=== PATIENT | male | born 1945 | race Caucasian/White ===

== ENCOUNTER 2016-02-11 08:34 | Emergency (ER) | payer MEDICARE ==
[~2016-02-11 08:34] MED LIST: ACET50TAOT PO; AFRI0.056; ALBU17IN INH; AMIO20TA PO; BREO1INH INH; CALC600T57 PO; CETI10TA PO; COUM1TAB17 PO; COUM2.5T11 PO; LIPI10TA PO; LOSA100T36 PO; MAGN400T5 PO; NITR4TASL SL; OMEP20CA3 PO; SPIR50TA2 PO; TORS5TAB2 PO; VITMTA PO
[2016-02-11] MEDS ORDERED: MORPHINE 4 MG/ML 1ML SYRINGE As Ordered ONE (09:05)
[2016-02-11] MEDS ORDERED: ONDANSETRON 4MG/2ML VIAL (J2405) As Ordered ONE (09:05)
[2016-02-11] MEDS ORDERED: ASPIRIN 81 MG CHEW TABLET As Ordered ONE (09:05)
[2016-02-11 09:17] LABS: BASO % 0.6 % (0.0-1.0); EOS # 0.2 K/mm3 (0.0-0.50); EOS % 2.3 % (0.0-3.0); LARGE UNSTAINED CELL # 0.2 K/mm3 (0.0-0.4); LARGE UNSTAINED CELL % 3.1 % (0.0-4.0); LYMPH % 29.4 % (24.0-44.0); MEAN CORPUSCULAR HEMOGLOBIN 31.9 pg (27.0-33.0); MEAN CORPUSCULAR HGB CONC 33.9 g/dl (32.0-36.5); MONO # 0.4 K/mm3 (0.0-0.8); MONO % 6.2 % (0.0-5.0); NEUTROPHILS # 4.1 K/mm3 (1.8-7.7); NEUTROPHILS % 58.5 % (36.0-66.0); PLATELET COUNT, AUTOMATED 217 k/mm3 (150-450); RED CELL DISTRIBUTION WIDTH 11.9 % (11.5-14.5); WHITE BLOOD COUNT 6.9 K/mm3 (4.0-10.0)
[2016-02-11 09:22] LABS: INR 1.14
[2016-02-11 10:04] LABS: ANION GAP 10 MEQ/L (8-16); BLOOD UREA NITROGEN 13 MG/DL (7-18); CALCIUM LEVEL 8.6 MG/DL (8.8-10.2); CARBON DIOXIDE LEVEL 30 MEQ/L (21-32); CHLORIDE LEVEL 103 MEQ/L (98-107); CREATININE FOR GFR 1.16 MG/DL (0.70-1.30); GLOMERULAR FILTRATION RATE > 60.0 (>49); GLUCOSE, FASTING 136 MG/DL (80-110); MAGNESIUM LEVEL 2.2 MG/DL (1.8-2.4); POTASSIUM SERUM 4.1 MEQ/L (3.5-5.1); SODIUM LEVEL 143 MEQ/L (136-145)
[2016-02-11] MEDS ORDERED: ACETAMINOPHEN TAB 650MG DOSE (2X325MG) As Ordered ONE (12:54)
--- NOTE | 2016-02-11 14:37 | REP ---
CT Head without contrast HISTORY: Headache COMPARISON: 05/29/2015 There is no intraparenchymal hemorrhage, acute infarct, mass or midline shift. The ventricular system is normal in appearance. The cortical sulci are dilated consistent with minimal volume loss. There is no extra cerebral collection. There is no fracture. The visualized sinuses are clear. IMPRESSION: Minimal volume loss. Signed by Josue Samson MD 02/11/2016 09:20 A
--- NOTE | 2016-02-11 16:09 | EDDOCDS ---
Nurse's Notes [facility] Name: Rocky Lazo Age: 70 yrs Sex: Male : 1945 Arrival Date: 02/11/2016 Time: 08:34 Bed OBSERVATION Private MD: Jalil Griffith H. Diagnosis: Headache-associated with sinus symptoms Presentation: 02/10 08:40 Presenting complaint: Patient states: woke up this am with chest pressure / headache. bcj denies SOB resp distress. states felt heart racing this am. denies sweating. denies nausea vomiting. has generalized headache. This patient has no additional risk factors. Adult Sepsis Screening: The patient does not have new or worsening altered mentation. Patient's respiratory rate is less than 22. Systolic blood pressure is greater than 100. Patient has a qSOFA score of 0- Negative Sepsis Screen. Suicide/Homicide risk assessment- the patient denies having any suicidal and/or homicidal ideations and does not present with any other emotional, behavioral or mental health complaints. Status: Patient is not a special services coordinator or dependent. Transition of care: patient was not received from another setting of care. 08:40 Method Of Arrival: Walkin/Carried/Asstd [facility] 08:40 Acuity: JACINTO Level 3 [facility] 08:54 Acuity level changed due to complexity of care. [facility] 08:54 Acuity: JACINTO Level 2 [facility] Triage Assessment: 08:47 Headache History: This patient does not have a history of previous headaches. General: bcj Appears in no apparent distress, comfortable. Pain: Location: face and chest Pain currently is 9 out of 10 on a pain scale. Pain began 1 day ago Also complains of no other associated symptoms. Neurological: Level of Consciousness is awake, alert. Historical: - Allergies: PCN; - Home Meds: 1. aspirin 81 mg Oral chew 1 tab once daily 2. breo 100/25mcg 1 puff daily 3. Calcium + Vitamin D 600 mg calcium- 200 unit Oral tab twice a day 4. Lipitor 10 mg Oral tab 1 tab once daily 5. losartan 100 mg oral tab 1 tab once daily 6. magnesium oxide 400 mg Oral tab 800 mg twice a day 7. multivitamin Oral tab 1 tab daily 8. Nitrostat 0.4 mg SL subl 1 tab every 5 minutes as needed 9. omeprazole 20 mg Oral cpDR 1 cap 2 times per day 10. oxymetazoline 0.05 % nasal spry 1 sprays as needed 11. torsemide 5 mg oral tab 1 tab once daily 12. Zyrtec 10 mg Oral tab 1 tab once daily 13. Ventolin HFA 90 mcg/actuation Nebulizer HFAA 2 puffs every 4 hours as needed 14. tylenol ES 500 mg as needed as needed 15. spironolactone 50 mg Oral tab 1 tab once daily - PMHx: Atrial Fib; CHF; COPD; GERD; Hypercholesterolemia; Hypertension; - PSHx: cardiac cath; right testicle; right shoulder; Cardiac Ablation; - Social history: Smoking status: Patient states former smoker of tobacco. No barriers to communication noted, The patient speaks fluent Botswanan, Speaks appropriately for age. - Family history: Not pertinent. - : The pt / caregiver states he / she is not on anticoagulants. Home medication list is obtained from the patient. - Exposure Risk Screening:: None identified. Screenin:12 Screening information is obtained from the patient. Fall risk: No risks identified. jc4 Assistance ADL's: requires no assistance with activities of daily living. Abuse/DV Screen: The patient / caregiver reports he/she is: not in a situation that causes fear, pain or injury. Nutritional screening: No deficits noted. Advance Directives: Currently, there is no health care proxy. home support is adequate. Assessment: 09:14 General: Appears in no apparent distress, Behavior is cooperative, pleasant. Pain: Pain jc4 currently is 8 out of 10 on a pain scale. Neurological: Level of Consciousness is awake, alert, Oriented to person, place, time, Denies dizziness while lying on stretcher. Neurological: Reports headache. EENT: Reports nasal congestion. Cardiovascular: Rhythm is sinus rhythm with unifocal PVCs. Respiratory: Airway is patent Respiratory effort is even, unlabored, Respiratory pattern is regular, symmetrical, Breath sounds are clear bilaterally. GI: Reports epigastric pain. Derm: Skin is pink, warm & dry. 10:12 General: Pt resting on stretcher. States "the pain comes and goes, and I get a little jc4 compression in my chest now and again". Currently states that pain is a "2/10" at this time. Declines need for additional analgesic at this time. 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 Saline lock in place. 11:44 General: Pt resting on stretcher. States, "I feel okay now". Color pink, skin warm and jc4 dry. Denies any pain currently. Respirations easy and full. Saline lock in place. Aware scheduled for repeat blood work. 12:51 General: Pt resting on stretcher. No distress noted at this time. Color pink, skin warm jc4 and dry. Respirations easy and full. States, "I have a little bit of a headache that comes and goes". Dr. Loera made aware. 13:30 Reassessment: Patient appears in no apparent distress at this time. jc4 14:57 General: Pt resting on stretcher. States that headache persists, but "I don't want jc4 anything, I'll suffer with it". Denies any shortness of breath or chest pain. 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 Saline lock in place, site clear. Aware lab results pending. 16:05 General: Appears in no apparent distress, Behavior is cooperative, pleasant. Pain: jc4 Denies pain. Neurological: Level of Consciousness is awake, alert, Oriented to person, place, time. Cardiovascular: Chest pain is denied. Respiratory: Airway is patent Respiratory effort is even, unlabored, Respiratory pattern is regular, symmetrical. Derm: Skin is pink, warm & dry. Vital Signs: 08:41 BP 171 / 94; Pulse 80; Resp 18; Temp 98.4(O); Pulse Ox 99% on R/A; Weight 63.5 kg (R); ct3 Height 5 ft. 7 in. (170.18 cm) (R); 08:57 BP 171 / 92 (auto/); jc4 08:59 Pulse 72 MON; Pulse Ox 97% ; jc4 09:00 BP 158 / 76 (auto/); jc4 09:00 Pulse 71 MON; Pulse Ox 97% ; jc4 09:15 BP 157 / 73 (auto/); jc4 09:15 Pulse 67 MON; Pulse Ox 97% ; jc4 09:30 BP 148 / 69 (auto/); jc4 09:30 Pulse 67 MON; Pulse Ox 93% ; jc4 09:45 BP 155 / 81 (auto/); jc4 09:45 Pulse 69 MON; Pulse Ox 93% ; jc4 10:00 BP 142 / 79 (auto/); jc4 10:00 Pulse 70 MON; Pulse Ox 93% ; jc4 10:12 BP 142 / 79; Pulse 78; Resp 20; Pulse Ox 93% on R/A; Pain 2/10; jc4 10:15 BP 145 / 90 (auto/); jc4 10:15 Pulse 70 MON; Pulse Ox 94% ; jc4 10:30 BP 148 / 80 (auto/); jc4 10:30 Pulse 74 MON; Pulse Ox 92% ; jc4 10:44 Pulse 75 MON; Pulse Ox 92% ; jc4 10:45 BP 146 / 90 (auto/); jc4 11:12 Pulse 72 MON; Pulse Ox 93% ; jc4 11:15 BP 165 / 89 (auto/); jc4 11:30 BP 155 / 83 (auto/); jc4 11:30 Pulse 75 MON; Pulse Ox 93% ; jc4 12:51 BP 122 / 76 (auto/); jc4 12:52 Pulse 75 MON; Pulse Ox 94% ; jc4 15:03 Pulse 70 MON; Pulse Ox 94% ; jc4 15:04 BP 138 / 81 (auto/); jc4 15:14 Pulse 68 MON; Pulse Ox 93% ; jc4 15:15 BP 152 / 70 (auto/); jc4 15:30 BP 124 / 80 (auto/); jc4 15:32 Pulse 75 MON; Pulse Ox 94% ; jc4 15:45 BP 159 / 89 (auto/); jc4 15:46 Pulse 77 MON; Pulse Ox 94% ; jc4 16:06 BP 147 / 95; Pulse 74; Resp 20; Temp 98.1(O); Pulse Ox 95% on R/A; Pain 0/10; jc4 08:41 Body Mass Index 21.93 (63.50 kg, 170.18 cm) ct3 Vitals: 08:47 Log In Time: February 11, 2016 at 08:34. [facility] ED Course: 08:36 Patient visited by Rehan Artis Reg. pm4 08:36 Patient moved to Waiting pm4 08:37 Jalil Griffith is Private Physician. pm4 08:44 Triage Initiated [facility] 08:46 Patient moved to Pre RCE cmb 08:48 Patient visited by Wilton Parr, KATIE. [facility] 08:51 Marion Martinez RN is Primary Nurse. ar2 08:51 Patient moved to 2 ar2 08:52 Cee Loera MD is Attending Physician. sd1 08:52 Patient visited by Cee Loera MD. sd1 08:54 Patient visited by Wilton Parr RN. bcj 08:57 EKG done. (by ED staff). Reviewed by Cee Loera MD. ct3 09:03 Basic Metabolic Profile Sent. jc4 09:03 CBC with Diff Sent. jc4 09:03 Cardiac Injury Profile Sent. jc4 09:03 Prothrombin Time Profile\\E\\INR Sent. jc4 09:03 Troponin Sent. jc4 09:03 Inserted saline lock: 20 gauge in right antecubital area The patient tolerated the jc4 procedure well. 09:06 Patient visited by Nakia Maya PCA. ct3 09:06 Patient has correct armband on for positive identification. Placed in gown. Bed in low ct3 position. Call light in reach. Side rails up X2. 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 Pulse ox on. NIBP on. 09:07 The patient / caregiver is instructed regarding the plan of care and ED course. jc4 09:56 Patient visited by Nakia Maya PCA. ct3 10:03 [facility] Payment Agreement was scanned into [employer] and attached to record. mm15 10:15 Patient visited by Marion Martinez RN. jc4 11:11 Patient moved to OBSERVATION sd1 14:57 CARDIAC MARKER PANEL Sent. jc4 15:03 Patient visited by Carolann Gonzalez. dem1 15:03 EKG done. (by ED staff). Reviewed by Cee Loera MD. dem1 15:07 CT Head Without Contrast Returned. EDMS 15:40 Jalil Griffith is Referral Physician. sd1 16:08 Discontinued lock intact, bleeding controlled, pressure dressing applied, No jc4 redness/swelling at site. No procedures done that require assistance. Administered Medications: 09:12 Drug: Ondansetron 4 mg [ondansetron HCl 2 mg/mL intravenous solution (2 mL)] Route: jc4 IVP; Site: right antecubital; 09:14 Drug: morphine 4 mg [morphine 4 mg/mL intravenous cartridge (1 mL)] Route: IVP; Site: jc4 right antecubital; 10:12 Follow up: BP 142 / 79; Pulse 78 bpm; Resp 20 bpm; Pulse Ox 93% RA; Pain 03/20 Adult [facility] 09:20 Drug: Aspirin 81 mg [aspirin 81 mg chewable tablet (1 tabs)] Route: PO; [facility] 12:55 Drug: Acetaminophen 650 mg [acetaminophen 325 mg tablet (2 tabs)] Route: PO; 4 Order Results: Lab Order: Basic Metabolic Profile; SPEC'M 02/11/16 09:01 Test: GLUCOSE, FASTING; Value: 136; Range: 80-110; Abnormal: Above high normal; Units: MG/DL; Status: F Test: BLOOD UREA NITROGEN; Value: 13; Range: 7-18; Units: MG/DL; Status: F Test: CREATININE FOR GFR; Value: 1.16; Range: 0.70-1.30; Units: MG/DL; Status: F Test: GLOMERULAR FILTRATION RATE; Value: > 60.0; Range: >49; Status: F Test: SODIUM LEVEL; Value: 143; Range: 136-145; Units: MEQ/L; Status: F Test: POTASSIUM SERUM; Value: 4.1; Range: 3.5-5.1; Units: MEQ/L; Status: F Test: CHLORIDE LEVEL; Value: 103; Range: 98-107; Units: MEQ/L; Status: F Test: CARBON DIOXIDE LEVEL; Value: 30; Range: 21-32; Units: MEQ/L; Status: F Test: ANION GAP; Value: 10; Range: 8-16; Units: MEQ/L; Status: F Test: CALCIUM LEVEL; Value: 8.6; Range: 8.8-10.2; Abnormal: Below low normal; Units: MG/DL; Status: F Test Note: ; Units are mL/min/1.73 m2 Chronic Kidney Disease Staging per NKF: Stage I & II GFR >=60 Normal to Mildly Decreased Stage III GFR 30-59 Moderately Decreased Stage IV GFR 15-29 Severely Decreased Stage V GFR <15 Very Little GFR Left ESRD GFR <15 on LCAC RADAR OPERATOR/NAVIGATOR Lab Order: CBC with Diff; SPEC'M 02/11/16 09:01 Test: WHITE BLOOD COUNT; Value: 6.9; Range: 4.0-10.0; Units: K/mm3; Status: F Test: RED BLOOD COUNT; Value: 4.89; Range: 4.30-6.10; Units: M/mm3; Status: F Test: HEMOGLOBIN; Value: 15.6; Range: 14.0-18.0; Units: g/dl; Status: F Test: HEMATOCRIT; Value: 46.0; Range: 42.0-52.0; Units: %; Status: F Test: MEAN CORPUSCULAR VOLUME; Value: 94.0; Range: 80.0-96.0; Units: fl; Status: F Test: MEAN CORPUSCULAR HEMOGLOBIN; Value: 31.9; Range: 27.0-33.0; Units: pg; Status: F Test: MEAN CORPUSCULAR HGB CONC; Value: 33.9; Range: 32.0-36.5; Units: g/dl; Status: F Test: RED CELL DISTRIBUTION WIDTH; Value: 11.9; Range: 11.5-14.5; Units: %; Status: F Test: PLATELET COUNT, AUTOMATED; Value: 217; Range: 150-450; Units: k/mm3; Status: F Test: NEUTROPHILS %; Value: 58.5; Range: 36.0-66.0; Units: %; Status: F Test: LYMPH %; Value: 29.4; Range: 24.0-44.0; Units: %; Status: F Test: MONO %; Value: 6.2; Range: 0.0-5.0; Abnormal: Above high normal; Units: %; Status: F Test: EOS %; Value: 2.3; Range: 0.0-3.0; Units: %; Status: F Test: BASO %; Value: 0.6; Range: 0.0-1.0; Units: %; Status: F Test: LARGE UNSTAINED CELL %; Value: 3.1; Range: 0.0-4.0; Units: %; Status: F Test: NEUTROPHILS #; Value: 4.1; Range: 1.8-7.7; Units: K/mm3; Status: F Test: LYMPH #; Value: 2.0; Range: 1.5-4.5; Units: K/mm3; Status: F Test: MONO #; Value: 0.4; Range: 0.0-0.8; Units: K/mm3; Status: F Test: EOS #; Value: 0.2; Range: 0.0-0.50; Units: K/mm3; Status: F Test: BASO #; Value: 0.0; Range: 0.0-0.2; Units: K/mm3; Status: F Test: LARGE UNSTAINED CELL #; Value: 0.2; Range: 0.0-0.4; Units: K/mm3; Status: F Lab Order: Cardiac Injury Profile; SPEC02/11/16 09:01 Test: CPK CREATINE PHOSPHOKINASE; Value: 86; Range: 39-308; Units: U/L; Status: F Test: CK-MB VALUE MASS; Value: 1.3; Range: 0.0-3.6; Units: NG/ML; Status: F Test: MB/CK RELATIVE INDEX; Value: 1.51; Range: < OR =4; Status: F Test Note: ; DIAGNOSIS CRITERIA MMB ng/ml Relative Index (RI) NON-AMI < or = 5 N/A BERTRAND ZONE > 5 < or = 4 AMI > 5 > 4 Lab Order: Prothrombin Time Profile\\E\\INR; 02/11/16 09:01 Test: PROTHROMBIN TIME; Value: 14.7; Range: 12.3-14.5; Abnormal: Above high normal; Units: SECONDS; Status: F Test: INR; Value: 1.14; Status: F Test Note: ; THERAPUTIC HUMAN INR VALUES INDICATIONS NORMAL RANGES PROPHYLAXIS/TREATMENT OF: VENOUS THROMBOSIS 2.0-3.0 PULMONARY EMBOLISM 2.0-3.0 PREVENTION OF SYSTEMIC EMBOLISM FROM: TISSUE HEART VALVES 2.0-3.0 ACUTE MYOCARDIAL INFARCTION 2.0-3.0 VALVULAR HEART DISEASE 2.0-3.0 ATRIAL FIBRILLATION 2.0-3.0 MECHANICAL VALVES(HIGH RISK) 2.5-3.5 RECURRENT MYOCARDIAL INFARCTION 2.5-3.5 Lab Order: Troponin; 02/11/16 09:01 Test: TROPONIN I; Value: < 0.02; Range: < 0.10; Units: NG/ML; Status: F Test Note: ; Troponin I Reference Interval for [place] LOCI: 99th Percentile= 0.00-0.045 ng/ml Risk Stratification: <= 0.10 ng/ml Decreased Risk for Adverse Clinical Events. 0.10-1.50 ng/ml Increased Risk for Adverse Clinical Events. Evaluation of additional criterion and/or repeat testing in 2-6 hours is suggested to rule out myocardial damage. >= 1.50 ng/ml Indicative of Myocardial Injury. Lab Order: MAGNESIUM LEVEL; SPEC'M 02/11/16 09:01 Test: MAGNESIUM LEVEL; Value: 2.2; Range: 1.8-2.4; Units: MG/DL; Status: F Lab Order: CARDIAC MARKER PANEL; SPEC'M 02/11/16 14:55 Test: CPK CREATINE PHOSPHOKINASE; Value: 74; Range: 39-308; Units: U/L; Status: F Test: CK-MB VALUE MASS; Value: 1.0; Range: 0.0-3.6; Units: NG/ML; Status: F Test: MB/CK RELATIVE INDEX; Value: 1.35; Range: < OR =4; Status: F Test: TROPONIN I; Value: < 0.02; Range: < 0.10; Units: NG/ML; Status: F Test Note: ; DIAGNOSIS CRITERIA MMB ng/ml Relative Index (RI) NON-AMI < or = 5 N/A BERTRAND ZONE > 5 < or = 4 AMI > 5 > 4 Radiology Order: CT Head Without Contrast Test: CT Head Without Contrast REASON FOR EXAMINATION: HEADACHE WEAKNESS; CT Head without contrast; ; HISTORY: Headache; ; COMPARISON: 05/29/2015; ; There is no intraparenchymal hemorrhage, acute infarct, mass or midline shift.; The ventricular system is normal in appearance. The cortical sulci are dilated; consistent with minimal volume loss. There is no extra cerebral collection.; There is no fracture. The visualized sinuses are clear.; ; IMPRESSION: Minimal volume loss.; ; ; ; ; Signed by; Josue Samson MD 02/11/2016 09:20 A; Outcome: 15:42 Discharge ordered by Provider. sd1 16:08 Discharge Assessment: Patient awake, alert and oriented x 3. No cognitive and/or jc4 functional deficits noted. Patient verbalized understanding of disposition instructions. patient administered narcotics - no. The following High Risk Discharge criteria are identified: None. Discharged to home ambulatory. Condition: stable. Discharge instructions given to patient, Instructed on discharge instructions, follow up and referral plans. medication usage, Demonstrated understanding of instructions, medications, Pt was receptive of discharge instructions/ teaching. Prescriptions given X 3. CT Study completed. Property :Personal belongings accompany Pt. 16:08 Patient left the ED. jc4 Signatures: Dispatcher [employer] EDMS Cee Loera MD MD sd1 Wilton Parr, RN RN Uriel Morales, PASteffanieC PA-C ar2 Marion Martinez RN RN jc4 Nakia Maya, PATTERNMAKER HELPER PATTERNMAKER HELPER ct3 Carolann Gonzalez1 Alyx Davis cmb Mary Aparicio mm15 Rehan Artis, Reg Reg pm4 Corrections: (The following items were deleted from the chart) 09:08 09:02 MAGNESIUM LEVEL+LAB sent. 4 EDVT MTDD
--- NOTE | 2016-02-11 16:09 | EDDOCDS ---
Physician Documentation [facility] Name: Rocky Lazo Age: 70 yrs Sex: Male : 1945 Arrival Date: 02/11/2016 Time: 08:34 Bed OBSERVATION Private MD: Jalil Griffith H. Disposition: 02/11/16 15:42 Discharged to Home/Self Care. Impression: Headache - associated with sinus symptoms . - Condition is Stable. - Discharge Instructions: Sinus Headache, Sinus Headache, Aztv-[id number]. - Prescriptions for Afrin (oxymetazoline) 0.05 % Nasal Aerosol, [place] - spray 2 spray by INTRANASAL route 2 times per day; 1 Container. Fluticasone 50 mcg/actuation Nasal [place], Suspension - inhale 1 spray by INTRANASAL route 2 times per day; 1 bottle. [place] 5- 325 mg Oral Tablet - take 1 tablet by ORAL route every 6 hours As needed MDD: 4 tabs; 6 tablet. - Medication Reconciliation, Local Pharmacy Hours form. - Follow up: Jalil Griffith; When: Tomorrow; Reason: Recheck today's complaints. Follow up: Emergency Department; When: Tomorrow; Reason: Recheck today's complaints. - Problem is new. - Symptoms are resolved. Historical: - Allergies: PCN; - Home Meds: 1. aspirin 81 mg Oral chew 1 tab once daily 2. breo 100/25mcg 1 puff daily 3. Calcium + Vitamin D 600 mg calcium- 200 unit Oral tab twice a day 4. Lipitor 10 mg Oral tab 1 tab once daily 5. losartan 100 mg oral tab 1 tab once daily 6. magnesium oxide 400 mg Oral tab 800 mg twice a day 7. multivitamin Oral tab 1 tab daily 8. Nitrostat 0.4 mg SL subl 1 tab every 5 minutes as needed 9. omeprazole 20 mg Oral cpDR 1 cap 2 times per day 10. oxymetazoline 0.05 % nasal spry 1 sprays as needed 11. torsemide 5 mg oral tab 1 tab once daily 12. Zyrtec 10 mg Oral tab 1 tab once daily 13. Ventolin HFA 90 mcg/actuation Nebulizer HFAA 2 puffs every 4 hours as needed 14. tylenol ES 500 mg as needed as needed 15. spironolactone 50 mg Oral tab 1 tab once daily - PMHx: Atrial Fib; CHF; COPD; GERD; Hypercholesterolemia; Hypertension; - PSHx: cardiac cath; right testicle; right shoulder; Cardiac Ablation; - Social history: Smoking status: Patient states former smoker of tobacco. No barriers to communication noted, The patient speaks fluent Kazakh, Speaks appropriately for age. - Family history: Not pertinent. - : The pt / caregiver states he / she is not on anticoagulants. Home medication list is obtained from the patient. - Exposure Risk Screening:: None identified. Vital Signs: 02/10 08:41 BP 171 / 94; Pulse 80; Resp 18; Temp 98.4(O); Pulse Ox 99% on R/A; Weight 63.5 kg / ct3 139.99 lbs (R); Height 5 ft. 7 in. (170.18 cm) (R); 08:57 BP 171 / 92 (auto/); jc4 08:59 Pulse 72 MON; Pulse Ox 97% ; jc4 09:00 BP 158 / 76 (auto/); jc4 09:00 Pulse 71 MON; Pulse Ox 97% ; jc4 09:15 BP 157 / 73 (auto/); jc4 09:15 Pulse 67 MON; Pulse Ox 97% ; jc4 09:30 BP 148 / 69 (auto/); jc4 09:30 Pulse 67 MON; Pulse Ox 93% ; jc4 09:45 BP 155 / 81 (auto/); jc4 09:45 Pulse 69 MON; Pulse Ox 93% ; jc4 10:00 BP 142 / 79 (auto/); jc4 10:00 Pulse 70 MON; Pulse Ox 93% ; jc4 10:12 BP 142 / 79; Pulse 78; Resp 20; Pulse Ox 93% on R/A; Pain 2/10; jc4 10:15 BP 145 / 90 (auto/); jc4 10:15 Pulse 70 MON; Pulse Ox 94% ; jc4 10:30 BP 148 / 80 (auto/); jc4 10:30 Pulse 74 MON; Pulse Ox 92% ; jc4 10:44 Pulse 75 MON; Pulse Ox 92% ; jc4 10:45 BP 146 / 90 (auto/); jc4 11:12 Pulse 72 MON; Pulse Ox 93% ; jc4 11:15 BP 165 / 89 (auto/); jc4 11:30 BP 155 / 83 (auto/); jc4 11:30 Pulse 75 MON; Pulse Ox 93% ; jc4 12:51 BP 122 / 76 (auto/); jc4 12:52 Pulse 75 MON; Pulse Ox 94% ; jc4 15:03 Pulse 70 MON; Pulse Ox 94% ; jc4 15:04 BP 138 / 81 (auto/); jc4 15:14 Pulse 68 MON; Pulse Ox 93% ; jc4 15:15 BP 152 / 70 (auto/); jc4 15:30 BP 124 / 80 (auto/); jc4 15:32 Pulse 75 MON; Pulse Ox 94% ; jc4 15:45 BP 159 / 89 (auto/); jc4 15:46 Pulse 77 MON; Pulse Ox 94% ; jc4 16:06 BP 147 / 95; Pulse 74; Resp 20; Temp 98.1(O); Pulse Ox 95% on R/A; Pain 0/10; jc4 08:41 Body Mass Index 21.93 (63.50 kg, 170.18 cm) ct3 MDM: 08:51 Care Center Manager/Pulse Ox/q 30 min VS ordered. sd1 08:51 IV Saline Lock ordered. sd1 08:51 Rhythm Strip to chart ordered. sd1 08:51 Undress patient appropriately for examination ordered. sd1 08:52 Basic Metabolic Profile Ordered. EDMS 08:52 CBC with Diff Ordered. EDMS 08:52 Cardiac Injury Profile Ordered. EDMS 08:52 Prothrombin Time Profile\E\INR Ordered. EDMS 08:52 Troponin Ordered. EDMS 08:52 portable chest Ordered. EDMS 08:53 ECG WITH READING ER PHYS+CARDIAG ordered. EDMS 08:58 Aspirin Chewable Tablet 81 mg PO once ordered. sd1 08:59 CT Head Without Contrast Ordered. EDMS 08:59 morphine 4 mg IVP every 15 minutes; Document pain score/vitals after each dose (Hold if sd1 SBP < 90mmHg) x2 ordered. 08:59 Ondansetron 4 mg IVP once ordered. sd1 09:09 MAGNESIUM LEVEL Ordered. EDMS 09:45 Financial registration complete. mm15 10:03 [facility] Payment Agreement was scanned into [employer] and attached to record. mm15 10:13 Basic Metabolic Profile Reviewed. sd1 10:13 CBC with Diff Reviewed. sd1 10:13 Prothrombin Time Profile\E\INR Reviewed. sd1 10:13 Cardiac Injury Profile Reviewed. sd1 10:13 Troponin Reviewed. sd1 10:13 MAGNESIUM LEVEL Reviewed. sd1 11:06 Redraw CIP &Troponin (put time in details section) ordered. sd1 11:06 Repeat EKG (put time details section) ordered. sd1 11:12 Redraw CIP &Troponin (put time in details section) complete. lbd 11:12 Repeat EKG (put time details section) complete. lbd 11:15 ECG WITH READING ER PHYS ordered. EDMS 11:16 CARDIAC MARKER PANEL Ordered. EDMS 12:53 Acetaminophen Tablet 650 mg PO once ordered. jc4 15:30 CT Head Without Contrast Reviewed. sd1 15:31 CARDIAC MARKER PANEL Reviewed. sd1 Administered Medications: 09:12 Drug: Ondansetron 4 mg [ondansetron HCl 2 mg/mL intravenous solution (2 mL)] Route: jc4 IVP; Site: right antecubital; 09:14 Drug: morphine 4 mg [morphine 4 mg/mL intravenous cartridge (1 mL)] Route: IVP; Site: [facility] right antecubital; 10:12 Follow up: BP 142 / 79; Pulse 78 bpm; Resp 20 bpm; Pulse Ox 93% RA; Pain 03/20 Adult jc4 09:20 Drug: Aspirin 81 mg [aspirin 81 mg chewable tablet (1 tabs)] Route: PO; jc4 12:55 Drug: Acetaminophen 650 mg [acetaminophen 325 mg tablet (2 tabs)] Route: PO; jc4 Signatures: Dispatcher [employer] EDCee Garrison MD MD sd1 Ann-Marie Reyez, Medical Record Assistant Unit [facility] Wilton Parr RN RN bcj Castle, Jennifer, RN RN jc4 Mary Aparicio mm15 The chart was reviewed and I authenticate all verbal orders and agree with the evaluation and treatment provided.Corrections: (The following items were deleted from the chart) 09:08 08:59 MAGNESIUM LEVEL+LAB ordered. EDNV EDMS Attachments: 10:03 [facility] Payment Agreement mm15 MTDD
--- NOTE | 2016-02-12 12:19 | REP ---
AP portable upright chest radiograph 02/11/2016 Indication: Chest pain Comparison: Portable chest 08/01/2015 Study is somewhat limited by portable technique and underpenetration Cardiomediastinal silhouette is normal. Lungs are clear bilaterally. Bones and soft tissues are within normal limits. Impression: negative AP portable chest radiograph Signed by Kiara Chandler MD 02/12/2016 12:12 P
--- NOTE | 2016-02-12 19:32 | ECGEPIP ---
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
--- NOTE | 2016-02-12 19:42 | ECGEPIP ---
Stationary ECG Study [facility] - ED Test Date: 2016-02-11 Pat Name: CAREY AKERS Department: Room: - Gender: M Protection Agent: violet[place] : 1945 Requested By: Cee Loera Order Number: [id number] Reading MD: Cee Loera Measurements Intervals [place] Rate: 65 P: 93 RI: 150 QRS: 42 QRSD: 108 T: 37 QT: 384 QTc: 402 Interpretive Statements SINUS RHYTHM WITH FREQUENT VENTRICULAR PREMATURE COMPLEXES ABNORMAL RHYTHM ECG DECREASED RATE 02/11/16 Electronically Signed On 02-12-2016 19:42:04 EST by Cee Loera
--- NOTE | 2016-02-13 17:10 | EDDOCDS ---
Physician Documentation [facility] Name: Rocky Lazo Age: 70 yrs Sex: Male : 1945 Arrival Date: 02/11/2016 Time: 08:34 Bed OBSERVATION Private MD: Jalil Griffith H. Disposition: 02/11/16 15:42 Discharged to Home/Self Care. Impression: Headache - associated with sinus symptoms . - Condition is Stable. - Discharge Instructions: Sinus Headache, Sinus Headache, [id number]. - Prescriptions for Afrin (oxymetazoline) 0.05 % Nasal Aerosol, [place] - spray 2 spray by INTRANASAL route 2 times per day; 1 Container. Fluticasone 50 mcg/actuation Nasal [place], Suspension - inhale 1 spray by INTRANASAL route 2 times per day; 1 bottle. [place] 5- 325 mg Oral Tablet - take 1 tablet by ORAL route every 6 hours As needed MDD: 4 tabs; 6 tablet. - Medication Reconciliation, Local Pharmacy Hours form. - Follow up: Jalil Griffith; When: Tomorrow; Reason: Recheck today's complaints. Follow up: Emergency Department; When: Tomorrow; Reason: Recheck today's complaints. - Problem is new. - Symptoms are resolved. Historical: - Allergies: PCN; - Home Meds: 1. aspirin 81 mg Oral chew 1 tab once daily 2. breo 100/25mcg 1 puff daily 3. Calcium + Vitamin D 600 mg calcium- 200 unit Oral tab twice a day 4. Lipitor 10 mg Oral tab 1 tab once daily 5. losartan 100 mg oral tab 1 tab once daily 6. magnesium oxide 400 mg Oral tab 800 mg twice a day 7. multivitamin Oral tab 1 tab daily 8. Nitrostat 0.4 mg SL subl 1 tab every 5 minutes as needed 9. omeprazole 20 mg Oral cpDR 1 cap 2 times per day 10. oxymetazoline 0.05 % nasal spry 1 sprays as needed 11. torsemide 5 mg oral tab 1 tab once daily 12. Zyrtec 10 mg Oral tab 1 tab once daily 13. Ventolin HFA 90 mcg/actuation Nebulizer HFAA 2 puffs every 4 hours as needed 14. tylenol ES 500 mg as needed as needed 15. spironolactone 50 mg Oral tab 1 tab once daily - PMHx: Atrial Fib; CHF; COPD; GERD; Hypercholesterolemia; Hypertension; - PSHx: cardiac cath; right testicle; right shoulder; Cardiac Ablation; - Social history: Smoking status: Patient states former smoker of tobacco. No barriers to communication noted, The patient speaks fluent Lithuanian, Speaks appropriately for age. - Family history: Not pertinent. - : The pt / caregiver states he / she is not on anticoagulants. Home medication list is obtained from the patient. - Exposure Risk Screening:: None identified. Vital Signs: 02/10 08:41 BP 171 / 94; Pulse 80; Resp 18; Temp 98.4(O); Pulse Ox 99% on R/A; Weight 63.5 kg / ct3 139.99 lbs (R); Height 5 ft. 7 in. (170.18 cm) (R); 08:57 BP 171 / 92 (auto/); jc4 08:59 Pulse 72 MON; Pulse Ox 97% ; jc4 09:00 BP 158 / 76 (auto/); jc4 09:00 Pulse 71 MON; Pulse Ox 97% ; jc4 09:15 BP 157 / 73 (auto/); jc4 09:15 Pulse 67 MON; Pulse Ox 97% ; jc4 09:30 BP 148 / 69 (auto/); jc4 09:30 Pulse 67 MON; Pulse Ox 93% ; jc4 09:45 BP 155 / 81 (auto/); jc4 09:45 Pulse 69 MON; Pulse Ox 93% ; jc4 10:00 BP 142 / 79 (auto/); jc4 10:00 Pulse 70 MON; Pulse Ox 93% ; jc4 10:12 BP 142 / 79; Pulse 78; Resp 20; Pulse Ox 93% on R/A; Pain 2/10; jc4 10:15 BP 145 / 90 (auto/); jc4 10:15 Pulse 70 MON; Pulse Ox 94% ; jc4 10:30 BP 148 / 80 (auto/); jc4 10:30 Pulse 74 MON; Pulse Ox 92% ; jc4 10:44 Pulse 75 MON; Pulse Ox 92% ; jc4 10:45 BP 146 / 90 (auto/); jc4 11:12 Pulse 72 MON; Pulse Ox 93% ; jc4 11:15 BP 165 / 89 (auto/); jc4 11:30 BP 155 / 83 (auto/); jc4 11:30 Pulse 75 MON; Pulse Ox 93% ; jc4 12:51 BP 122 / 76 (auto/); jc4 12:52 Pulse 75 MON; Pulse Ox 94% ; jc4 15:03 Pulse 70 MON; Pulse Ox 94% ; jc4 15:04 BP 138 / 81 (auto/); jc4 15:14 Pulse 68 MON; Pulse Ox 93% ; jc4 15:15 BP 152 / 70 (auto/); jc4 15:30 BP 124 / 80 (auto/); jc4 15:32 Pulse 75 MON; Pulse Ox 94% ; jc4 15:45 BP 159 / 89 (auto/); jc4 15:46 Pulse 77 MON; Pulse Ox 94% ; jc4 16:06 BP 147 / 95; Pulse 74; Resp 20; Temp 98.1(O); Pulse Ox 95% on R/A; Pain 0/10; jc4 08:41 Body Mass Index 21.93 (63.50 kg, 170.18 cm) ct3 MDM: 08:51 Media Sales Consultant/Pulse Ox/q 30 min VS ordered. sd1 08:51 IV Saline Lock ordered. sd1 08:51 Rhythm Strip to chart ordered. sd1 08:51 Undress patient appropriately for examination ordered. sd1 08:52 Basic Metabolic Profile Ordered. EDMS 08:52 CBC with Diff Ordered. EDMS 08:52 Cardiac Injury Profile Ordered. EDMS 08:52 Prothrombin Time Profile\E\INR Ordered. EDMS 08:52 Troponin Ordered. EDMS 08:52 portable chest Ordered. EDMS 08:53 ECG WITH READING ER PHYS+CARDIAG ordered. EDMS 08:58 Aspirin Chewable Tablet 81 mg PO once ordered. sd1 08:59 CT Head Without Contrast Ordered. EDMS 08:59 morphine 4 mg IVP every 15 minutes; Document pain score/vitals after each dose (Hold if sd1 SBP < 90mmHg) x2 ordered. 08:59 Ondansetron 4 mg IVP once ordered. sd1 09:09 MAGNESIUM LEVEL Ordered. EDMS 09:45 Financial registration complete. mm15 10:03 [facility] [place] was [place] into [employer] and attached to record. mm15 10:13 Basic Metabolic Profile Reviewed. sd1 10:13 CBC with Diff Reviewed. sd1 10:13 Prothrombin Time Profile\E\INR Reviewed. sd1 10:13 Cardiac Injury Profile Reviewed. sd1 10:13 Troponin Reviewed. sd1 10:13 MAGNESIUM LEVEL Reviewed. sd1 11:06 Redraw CIP &Troponin (put time in details section) ordered. sd1 11:06 Repeat EKG (put time details section) ordered. sd1 11:12 Redraw CIP &Troponin (put time in details section) complete. lbd 11:12 Repeat EKG (put time details section) complete. lbd 11:15 ECG WITH READING ER PHYS ordered. EDMS 11:16 CARDIAC MARKER PANEL Ordered. EDMS 12:53 Acetaminophen Tablet 650 mg PO once ordered. jc4 15:30 CT Head Without Contrast Reviewed. sd1 15:31 CARDIAC MARKER PANEL Reviewed. sd1 02/11 12:02 T-Sheet-- Draft Copy was scanned into [employer] and attached to record. gb 12:03 ECG/EKG was scanned into [employer] and attached to record. gb 12:03 Trend VS was scanned into [employer] and attached to record. gb Administered Medications: 02/10 09:12 Drug: Ondansetron 4 mg [ondansetron HCl 2 mg/mL intravenous solution (2 mL)] Route: jc4 IVP; Site: right antecubital; 09:14 Drug: morphine 4 mg [morphine 4 mg/mL intravenous cartridge (1 mL)] Route: IVP; Site: [facility] right antecubital; 10:12 Follow up: BP 142 / 79; Pulse 78 bpm; Resp 20 bpm; Pulse Ox 93% RA; Pain 03/20 Adult jc4 09:20 Drug: Aspirin 81 mg [aspirin 81 mg chewable tablet (1 tabs)] Route: PO; jc4 12:55 Drug: Acetaminophen 650 mg [acetaminophen 325 mg tablet (2 tabs)] Route: PO; jc4 Signatures: Dispatcher [employer] EDMS Cee Loera MD MD sd1 Ann-Marie Reyez, Door Hanger Unit lbd Wilton Parr, RN RN Prema Pal, [place] Reg Marion Beckwith, RN RN jc4 Mary Aparicio mm15 The chart was reviewed and I authenticate all verbal orders and agree with the evaluation and treatment provided.Corrections: (The following items were deleted from the chart) 09:08 08:59 MAGNESIUM LEVEL+LAB ordered. EDMS EDMS Attachments: 10:03 [facility] Payment Agreement mm15 02/11 12:02 T-Sheet-- Draft Copy gb 12:03 ECG/EKG gb Chart Complete MTDD
--- NOTE | 2016-02-13 17:10 | EDDOCDS ---
Nurse's Notes [facility] Name: Carey Akers Age: 70 yrs Sex: Male : 1945 Arrival Date: 02/11/2016 Time: 08:34 Bed OBSERVATION Private MD: Jalil Griffith H. Diagnosis: Headache-associated with sinus symptoms Presentation: 02/10 08:40 Presenting complaint: Patient states: woke up this am with chest pressure / headache. bcj denies SOB resp distress. states felt heart racing this am. denies sweating. denies nausea vomiting. has generalized headache. This patient has no additional risk factors. Adult Sepsis Screening: The patient does not have new or worsening altered mentation. Patient's respiratory rate is less than 22. Systolic blood pressure is greater than 100. Patient has a qSOFA score of 0- Negative Sepsis Screen. Suicide/Homicide risk assessment- the patient denies having any suicidal and/or homicidal ideations and does not present with any other emotional, behavioral or mental health complaints. 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 Transition of care: patient was not received from another setting of care. 08:40 Method Of Arrival: Walkin/Carried/Asstd [facility] 08:40 Acuity: JACINTO Level 3 [facility] 08:54 Acuity level changed due to complexity of care. [facility] 08:54 Acuity: JACINTO Level 2 [facility] Triage Assessment: 08:47 Headache History: This patient does not have a history of previous headaches. General: bcj Appears in no apparent distress, comfortable. Pain: Location: face and chest Pain currently is 9 out of 10 on a pain scale. Pain began 1 day ago Also complains of no other associated symptoms. Neurological: Level of Consciousness is awake, alert. Historical: - Allergies: PCN; - Home Meds: 1. aspirin 81 mg Oral chew 1 tab once daily 2. breo 100/25mcg 1 puff daily 3. Calcium + Vitamin D 600 mg calcium- 200 unit Oral tab twice a day 4. Lipitor 10 mg Oral tab 1 tab once daily 5. losartan 100 mg oral tab 1 tab once daily 6. magnesium oxide 400 mg Oral tab 800 mg twice a day 7. multivitamin Oral tab 1 tab daily 8. Nitrostat 0.4 mg SL subl 1 tab every 5 minutes as needed 9. omeprazole 20 mg Oral cpDR 1 cap 2 times per day 10. oxymetazoline 0.05 % nasal spry 1 sprays as needed 11. torsemide 5 mg oral tab 1 tab once daily 12. Zyrtec 10 mg Oral tab 1 tab once daily 13. Ventolin HFA 90 mcg/actuation Nebulizer HFAA 2 puffs every 4 hours as needed 14. tylenol ES 500 mg as needed as needed 15. spironolactone 50 mg Oral tab 1 tab once daily - PMHx: Atrial Fib; CHF; COPD; GERD; Hypercholesterolemia; Hypertension; - PSHx: cardiac cath; right testicle; right shoulder; Cardiac Ablation; - Social history: Smoking status: Patient states former smoker of tobacco. No barriers to communication noted, The patient speaks fluent Montenegrin, Speaks appropriately for age. - Family history: Not pertinent. - : The pt / caregiver states he / she is not on anticoagulants. Home medication list is obtained from the patient. - Exposure Risk Screening:: None identified. Screenin:12 Screening information is obtained from the patient. Fall risk: No risks identified. jc4 Assistance ADL's: requires no assistance with activities of daily living. Abuse/DV Screen: The patient / caregiver reports he/she is: not in a situation that causes fear, pain or injury. Nutritional screening: No deficits noted. Advance Directives: Currently, there is no health care proxy. home support is adequate. Assessment: 09:14 General: Appears in no apparent distress, Behavior is cooperative, pleasant. Pain: Pain jc4 currently is 8 out of 10 on a pain scale. Neurological: Level of Consciousness is awake, alert, Oriented to person, place, time, Denies dizziness while lying on stretcher. Neurological: Reports headache. EENT: Reports nasal congestion. Cardiovascular: Rhythm is sinus rhythm with unifocal PVCs. Respiratory: Airway is patent Respiratory effort is even, unlabored, Respiratory pattern is regular, symmetrical, Breath sounds are clear bilaterally. GI: Reports epigastric pain. Derm: Skin is pink, warm & dry. 10:12 General: Pt resting on stretcher. States "the pain comes and goes, and I get a little jc4 compression in my chest now and again". Currently states that pain is a "2/10" at this time. Declines need for additional analgesic at this time. clinical review nurse - sinus rhythm with frequent PVC's. Saline lock in place. 11:44 General: Pt resting on stretcher. States, "I feel okay now". Color pink, skin warm and jc4 dry. Denies any pain currently. Respirations easy and full. Saline lock in place. Aware scheduled for repeat blood work. 12:51 General: Pt resting on stretcher. No distress noted at this time. Color pink, skin warm jc4 and dry. Respirations easy and full. States, "I have a little bit of a headache that comes and goes". Dr. Loera made aware. 13:30 Reassessment: Patient appears in no apparent distress at this time. jc4 14:57 General: Pt resting on stretcher. States that headache persists, but "I don't want jc4 anything, I'll suffer with it". Denies any shortness of breath or chest pain. clinical review nurse - sinus rhythm with frequent unifocal PVC's. Saline lock in place, site clear. Aware lab results pending. 16:05 General: Appears in no apparent distress, Behavior is cooperative, pleasant. Pain: jc4 Denies pain. Neurological: Level of Consciousness is awake, alert, Oriented to person, place, time. Cardiovascular: Chest pain is denied. Respiratory: Airway is patent Respiratory effort is even, unlabored, Respiratory pattern is regular, symmetrical. Derm: Skin is pink, warm & dry. Vital Signs: 08:41 BP 171 / 94; Pulse 80; Resp 18; Temp 98.4(O); Pulse Ox 99% on R/A; Weight 63.5 kg (R); ct3 Height 5 ft. 7 in. (170.18 cm) (R); 08:57 BP 171 / 92 (auto/); jc4 08:59 Pulse 72 MON; Pulse Ox 97% ; jc4 09:00 BP 158 / 76 (auto/); jc4 09:00 Pulse 71 MON; Pulse Ox 97% ; jc4 09:15 BP 157 / 73 (auto/); jc4 09:15 Pulse 67 MON; Pulse Ox 97% ; jc4 09:30 BP 148 / 69 (auto/); jc4 09:30 Pulse 67 MON; Pulse Ox 93% ; jc4 09:45 BP 155 / 81 (auto/); jc4 09:45 Pulse 69 MON; Pulse Ox 93% ; jc4 10:00 BP 142 / 79 (auto/); jc4 10:00 Pulse 70 MON; Pulse Ox 93% ; jc4 10:12 BP 142 / 79; Pulse 78; Resp 20; Pulse Ox 93% on R/A; Pain 2/10; jc4 10:15 BP 145 / 90 (auto/); jc4 10:15 Pulse 70 MON; Pulse Ox 94% ; jc4 10:30 BP 148 / 80 (auto/); jc4 10:30 Pulse 74 MON; Pulse Ox 92% ; jc4 10:44 Pulse 75 MON; Pulse Ox 92% ; jc4 10:45 BP 146 / 90 (auto/); jc4 11:12 Pulse 72 MON; Pulse Ox 93% ; jc4 11:15 BP 165 / 89 (auto/); jc4 11:30 BP 155 / 83 (auto/); jc4 11:30 Pulse 75 MON; Pulse Ox 93% ; jc4 12:51 BP 122 / 76 (auto/); jc4 12:52 Pulse 75 MON; Pulse Ox 94% ; jc4 15:03 Pulse 70 MON; Pulse Ox 94% ; jc4 15:04 BP 138 / 81 (auto/); jc4 15:14 Pulse 68 MON; Pulse Ox 93% ; jc4 15:15 BP 152 / 70 (auto/); jc4 15:30 BP 124 / 80 (auto/); jc4 15:32 Pulse 75 MON; Pulse Ox 94% ; jc4 15:45 BP 159 / 89 (auto/); jc4 15:46 Pulse 77 MON; Pulse Ox 94% ; jc4 16:06 BP 147 / 95; Pulse 74; Resp 20; Temp 98.1(O); Pulse Ox 95% on R/A; Pain 0/10; jc4 08:41 Body Mass Index 21.93 (63.50 kg, 170.18 cm) ct3 Vitals: 08:47 Log In Time: February 11, 2016 at 08:34. [facility] ED Course: 08:36 Patient visited by Rehan Artis Reg. pm4 08:36 Patient moved to Waiting pm4 08:37 Jalil Griffith is Private Physician. pm4 08:44 Triage Initiated [facility] 08:46 Patient moved to Pre RCE cmb 08:48 Patient visited by Wilton Parr, KATIE. [facility] 08:51 Marion Martinez RN is Primary Nurse. ar2 08:51 Patient moved to 2 ar2 08:52 Cee Loera MD is Attending Physician. sd1 08:52 Patient visited by Cee Loera MD. sd1 08:54 Patient visited by Wilton Prar RN. bcj 08:57 EKG done. (by ED staff). Reviewed by Cee Loera MD. ct3 09:03 Basic Metabolic Profile Sent. jc4 09:03 CBC with Diff Sent. jc4 09:03 Cardiac Injury Profile Sent. jc4 09:03 Prothrombin Time Profile\\E\\INR Sent. jc4 09:03 Troponin Sent. jc4 09:03 Inserted saline lock: 20 gauge in right antecubital area The patient tolerated the jc4 procedure well. 09:06 Patient visited by Nakia Maya PCA. ct3 09:06 Patient has correct armband on for positive identification. Placed in gown. Bed in low ct3 position. Call light in reach. Side rails up X2. clinical review nurse on. Pulse ox on. NIBP on. 09:07 The patient / caregiver is instructed regarding the plan of care and ED course. jc4 09:56 Patient visited by Nakia Maya PCA. ct3 10:03 [facility] Payment Agreement was scanned into [employer] and attached to record. mm15 10:15 Patient visited by Marion Martinez RN. jc4 11:11 Patient moved to OBSERVATION sd1 14:57 CARDIAC MARKER PANEL Sent. jc4 15:03 Patient visited by Carolann Gonzalez. dem1 15:03 EKG done. (by ED staff). Reviewed by Cee Loera MD. dem1 15:07 CT Head Without Contrast Returned. EDMS 15:40 Jalil Griffith is Referral Physician. sd1 16:08 Discontinued lock intact, bleeding controlled, pressure dressing applied, No jc4 redness/swelling at site. No procedures done that require assistance. 02/11 12:02 T-Sheet-- Draft Copy was scanned into [employer] and attached to record. gb 12:03 ECG/EKG was scanned into [employer] and attached to record. gb 12:03 Trend VS was scanned into [employer] and attached to record. gb 12:37 portable chest Returned. EDMS 20:04 EKG-ADULT Returned. EDMS 20:05 ECG WITH READING ER PHYS Returned. EDMS Administered Medications: 02/10 09:12 Drug: Ondansetron 4 mg [ondansetron HCl 2 mg/mL intravenous solution (2 mL)] Route: jc4 IVP; Site: right antecubital; 09:14 Drug: morphine 4 mg [morphine 4 mg/mL intravenous cartridge (1 mL)] Route: IVP; Site: [facility] right antecubital; 10:12 Follow up: BP 142 / 79; Pulse 78 bpm; Resp 20 bpm; Pulse Ox 93% RA; Pain 03/20 Adult jc4 09:20 Drug: Aspirin 81 mg [aspirin 81 mg chewable tablet (1 tabs)] Route: PO; jc4 12:55 Drug: Acetaminophen 650 mg [acetaminophen 325 mg tablet (2 tabs)] Route: PO; jc4 Attachments: 12:03 Trend VS gb Order Results: Lab Order: Basic Metabolic Profile; SPEC'M 02/11/16 09:01 Test: GLUCOSE, FASTING; Value: 136; Range: 80-110; Abnormal: Above high normal; Units: MG/DL; Status: F Test: BLOOD UREA NITROGEN; Value: 13; Range: 7-18; Units: MG/DL; Status: F Test: CREATININE FOR GFR; Value: 1.16; Range: 0.70-1.30; Units: MG/DL; Status: F Test: GLOMERULAR FILTRATION RATE; Value: > 60.0; Range: >49; Status: F Test: SODIUM LEVEL; Value: 143; Range: 136-145; Units: MEQ/L; Status: F Test: POTASSIUM SERUM; Value: 4.1; Range: 3.5-5.1; Units: MEQ/L; Status: F Test: CHLORIDE LEVEL; Value: 103; Range: 98-107; Units: MEQ/L; Status: F Test: CARBON DIOXIDE LEVEL; Value: 30; Range: 21-32; Units: MEQ/L; Status: F Test: ANION GAP; Value: 10; Range: 8-16; Units: MEQ/L; Status: F Test: CALCIUM LEVEL; Value: 8.6; Range: 8.8-10.2; Abnormal: Below low normal; Units: MG/DL; Status: F Test Note: ; Units are mL/min/1.73 m2 Chronic Kidney Disease Staging per NKF: Stage I & II GFR >=60 Normal to Mildly Decreased Stage III GFR 30-59 Moderately Decreased Stage IV GFR 15-29 Severely Decreased Stage V GFR <15 Very Little GFR Left ESRD GFR <15 on [employer] INTER[employer] Lab Order: CBC with Diff; CORINNE'Gisselle 02/11/16 09:01 Test: WHITE BLOOD COUNT; Value: 6.9; Range: 4.0-10.0; Units: K/mm3; Status: F Test: RED BLOOD COUNT; Value: 4.89; Range: 4.30-6.10; Units: M/mm3; Status: F Test: HEMOGLOBIN; Value: 15.6; Range: 14.0-18.0; Units: g/dl; Status: F Test: HEMATOCRIT; Value: 46.0; Range: 42.0-52.0; Units: %; Status: F Test: MEAN CORPUSCULAR VOLUME; Value: 94.0; Range: 80.0-96.0; Units: fl; Status: F Test: MEAN CORPUSCULAR HEMOGLOBIN; Value: 31.9; Range: 27.0-33.0; Units: pg; Status: F Test: MEAN CORPUSCULAR HGB CONC; Value: 33.9; Range: 32.0-36.5; Units: g/dl; Status: F Test: RED CELL DISTRIBUTION WIDTH; Value: 11.9; Range: 11.5-14.5; Units: %; Status: F Test: PLATELET COUNT, AUTOMATED; Value: 217; Range: 150-450; Units: k/mm3; Status: F Test: NEUTROPHILS %; Value: 58.5; Range: 36.0-66.0; Units: %; Status: F Test: LYMPH %; Value: 29.4; Range: 24.0-44.0; Units: %; Status: F Test: MONO %; Value: 6.2; Range: 0.0-5.0; Abnormal: Above high normal; Units: %; Status: F Test: EOS %; Value: 2.3; Range: 0.0-3.0; Units: %; Status: F Test: BASO %; Value: 0.6; Range: 0.0-1.0; Units: %; Status: F Test: LARGE UNSTAINED CELL %; Value: 3.1; Range: 0.0-4.0; Units: %; Status: F Test: NEUTROPHILS #; Value: 4.1; Range: 1.8-7.7; Units: K/mm3; Status: F Test: LYMPH #; Value: 2.0; Range: 1.5-4.5; Units: K/mm3; Status: F Test: MONO #; Value: 0.4; Range: 0.0-0.8; Units: K/mm3; Status: F Test: EOS #; Value: 0.2; Range: 0.0-0.50; Units: K/mm3; Status: F Test: BASO #; Value: 0.0; Range: 0.0-0.2; Units: K/mm3; Status: F Test: LARGE UNSTAINED CELL #; Value: 0.2; Range: 0.0-0.4; Units: K/mm3; Status: F Lab Order: Cardiac Injury Profile; SPEC'M 02/11/16 09:01 Test: CPK CREATINE PHOSPHOKINASE; Value: 86; Range: 39-308; Units: U/L; Status: F Test: CK-MB VALUE MASS; Value: 1.3; Range: 0.0-3.6; Units: NG/ML; Status: F Test: MB/CK RELATIVE INDEX; Value: 1.51; Range: < OR =4; Status: F Test Note: ; DIAGNOSIS CRITERIA MMB ng/ml Relative Index (RI) NON-AMI < or = 5 N/A BERTRAND ZONE > 5 < or = 4 AMI > 5 > 4 Lab Order: Prothrombin Time Profile\\E\\INR; SPEC'M 02/11/16 09:01 Test: PROTHROMBIN TIME; Value: 14.7; Range: 12.3-14.5; Abnormal: Above high normal; Units: SECONDS; Status: F Test: INR; Value: 1.14; Status: F Test Note: ; THERAPUTIC HUMAN INR VALUES INDICATIONS NORMAL RANGES PROPHYLAXIS/TREATMENT OF: VENOUS THROMBOSIS 2.0-3.0 PULMONARY EMBOLISM 2.0-3.0 PREVENTION OF SYSTEMIC EMBOLISM FROM: TISSUE HEART VALVES 2.0-3.0 ACUTE MYOCARDIAL INFARCTION 2.0-3.0 VALVULAR HEART DISEASE 2.0-3.0 ATRIAL FIBRILLATION 2.0-3.0 MECHANICAL VALVES(HIGH RISK) 2.5-3.5 RECURRENT MYOCARDIAL INFARCTION 2.5-3.5 Lab Order: Troponin; [facility] 02/11/16 09:01 Test: TROPONIN I; Value: < 0.02; Range: < 0.10; Units: NG/ML; Status: F Test Note: ; Troponin I Reference Interval for [employer] LOCI: 99th Percentile= 0.00-0.045 ng/ml Risk Stratification: <= 0.10 ng/ml Decreased Risk for Adverse Clinical Events. 0.10-1.50 ng/ml Increased Risk for Adverse Clinical Events. Evaluation of additional criterion and/or repeat testing in 2-6 hours is suggested to rule out myocardial damage. >= 1.50 ng/ml Indicative of Myocardial Injury. Lab Order: MAGNESIUM LEVEL; [facility] 02/11/16 09:01 Test: MAGNESIUM LEVEL; Value: 2.2; Range: 1.8-2.4; Units: MG/DL; Status: F Lab Order: CARDIAC MARKER PANEL; [facility] 02/11/16 14:55 Test: CPK CREATINE PHOSPHOKINASE; Value: 74; Range: 39-308; Units: U/L; Status: F Test: CK-MB VALUE MASS; Value: 1.0; Range: 0.0-3.6; Units: NG/ML; Status: F Test: MB/CK RELATIVE INDEX; Value: 1.35; Range: < OR =4; Status: F Test: TROPONIN I; Value: < 0.02; Range: < 0.10; Units: NG/ML; Status: F Test Note: ; DIAGNOSIS CRITERIA MMB ng/ml Relative Index (RI) NON-AMI < or = 5 N/A BERTRAND ZONE > 5 < or = 4 AMI > 5 > 4 Radiology Order: portable chest Test: portable chest REASON FOR EXAMINATION: Chest Pain; AP portable upright chest radiograph 02/11/2016; ; Indication: Chest pain; ; Comparison: Portable chest 08/01/2015; ; Study is somewhat limited by portable technique and underpenetration; ; Cardiomediastinal silhouette is normal. Lungs are clear bilaterally. Bones and; soft tissues are within normal limits.; ; Impression: negative AP portable chest radiograph; ; ; Signed by; Kiara Chandler MD 02/12/2016 12:12 P; Radiology Order: EKG-ADULT Test: EKG-ADULT REASON FOR EXAMINATION: Chest Pain; Stationary ECG Study; [facility] ED; ; Test Date: 2016-02-11; Pat Name: CAREY AKERS Department:; Room: -; Gender: M [employer]: [employer]; : 1945 Requested By: Cee Loera; Order Number: [id number] Reading MD: Cee Loera; Measurements; Intervals [place]; Rate: 72 P: 62; ME: 172 QRS: 48; QRSD: 105 T: 40; QT: 400; QTc: 439; Interpretive Statements; SINUS RHYTHM WITH FREQUENT VENTRICULAR PREMATURE COMPLEXES; ABNORMAL RHYTHM ECG; INCREASED ECTOPY/RATE 08/01/15; Electronically Signed On 02-12-2016 19:32:00 EST by Cee Loera; Radiology Order: CT Head Without Contrast Test: CT Head Without Contrast REASON FOR EXAMINATION: HEADACHE WEAKNESS; CT Head without contrast; ; HISTORY: Headache; ; COMPARISON: 05/29/2015; ; There is no intraparenchymal hemorrhage, acute infarct, mass or midline shift.; The ventricular system is normal in appearance. The cortical sulci are dilated; consistent with minimal volume loss. There is no extra cerebral collection.; There is no fracture. The visualized sinuses are clear.; ; IMPRESSION: Minimal volume loss.; ; ; ; ; Signed by; Josue Samson MD 02/11/2016 09:20 A; Radiology Order: ECG WITH READING ER PHYS Test: ECG WITH READING ER PHYS REASON FOR EXAMINATION: CHEST PAIN (REPEAT EKG \\T\\ 2:30P); Stationary ECG Study; [facility] ED; ; Test Date: 2016-02-11; Pat Name: CAREY AKERS Department:; Room: -; Gender: M [employer]: [employer]; : 1945 Requested By: Cee Loera; Order Number: [id number] Reading MD: Cee Loera; Measurements; Intervals [place]; Rate: 65 P: 93; ME: 150 QRS: 42; QRSD: 108 T: 37; QT: 384; QTc: 402; Interpretive Statements; SINUS RHYTHM WITH FREQUENT VENTRICULAR PREMATURE COMPLEXES; ABNORMAL RHYTHM ECG; DECREASED RATE 02/11/16; Electronically Signed On 02-12-2016 19:42:04 EST by Cee Loera; Outcome: 02/10 15:42 Discharge ordered by Provider. sd1 16:08 Discharge Assessment: Patient awake, alert and oriented x 3. No cognitive and/or jc4 functional deficits noted. Patient verbalized understanding of disposition instructions. patient administered narcotics - no. The following High Risk Discharge criteria are identified: None. Discharged to home ambulatory. Condition: stable. Discharge instructions given to patient, Instructed on discharge instructions, follow up and referral plans. medication usage, Demonstrated understanding of instructions, medications, Pt was receptive of discharge instructions/ teaching. Prescriptions given X 3. CT Study completed. Property :Personal belongings accompany Pt. 16:08 Patient left the ED. [facility] Signatures: Dispatcher [employer] EDMS Cee Loera MD MD sd1 Wilton Parr, RN RN Prema aPl, Reg Reg gb Uriel Baca, PA-Darin PA-Darin ar2 Marion Martinez RN RN jc4 Nakia Maya, STRAIGHTENER AND ALIGNER STRAIGHTENER AND ALIGNER ct3 Carolann Gonzalez1 Alyx Davis cmb Mary Aparicio mm15 Rehan Artis, Reg Reg pm4 Corrections: (The following items were deleted from the chart) 09:08 09:02 MAGNESIUM LEVEL+LAB sent. [facility] EDWY Chart Complete MTDD
--- NOTE | 2016-02-13 17:10 | EDDOCDS ---
Physician Documentation [facility] Name: Rocky Lazo Age: 70 yrs Sex: Male : 1945 Arrival Date: 02/11/2016 Time: 08:34 Bed OBSERVATION Private MD: Jalil Griffith H. Disposition: 02/11/16 15:42 Discharged to Home/Self Care. Impression: Headache - associated with sinus symptoms . - Condition is Stable. - Discharge Instructions: Sinus Headache, Sinus Headache, [id number]. - Prescriptions for Afrin (oxymetazoline) 0.05 % Nasal Aerosol, [place] - spray 2 spray by INTRANASAL route 2 times per day; 1 Container. Fluticasone 50 mcg/actuation Nasal [place], Suspension - inhale 1 spray by INTRANASAL route 2 times per day; 1 bottle. Kirby 5- 325 mg Oral Tablet - take 1 tablet by ORAL route every 6 hours As needed MDD: 4 tabs; 6 tablet. - Medication Reconciliation, Local Pharmacy Hours form. - Follow up: Jalil Griffith; When: Tomorrow; Reason: Recheck today's complaints. Follow up: Emergency Department; When: Tomorrow; Reason: Recheck today's complaints. - Problem is new. - Symptoms are resolved. Historical: - Allergies: PCN; - Home Meds: 1. aspirin 81 mg Oral chew 1 tab once daily 2. breo 100/25mcg 1 puff daily 3. Calcium + Vitamin D 600 mg calcium- 200 unit Oral tab twice a day 4. Lipitor 10 mg Oral tab 1 tab once daily 5. losartan 100 mg oral tab 1 tab once daily 6. magnesium oxide 400 mg Oral tab 800 mg twice a day 7. multivitamin Oral tab 1 tab daily 8. Nitrostat 0.4 mg SL subl 1 tab every 5 minutes as needed 9. omeprazole 20 mg Oral cpDR 1 cap 2 times per day 10. oxymetazoline 0.05 % nasal spry 1 sprays as needed 11. torsemide 5 mg oral tab 1 tab once daily 12. Zyrtec 10 mg Oral tab 1 tab once daily 13. Ventolin HFA 90 mcg/actuation Nebulizer HFAA 2 puffs every 4 hours as needed 14. tylenol ES 500 mg as needed as needed 15. spironolactone 50 mg Oral tab 1 tab once daily - PMHx: Atrial Fib; CHF; COPD; GERD; Hypercholesterolemia; Hypertension; - PSHx: cardiac cath; right testicle; right shoulder; Cardiac Ablation; - Social history: Smoking status: Patient states former smoker of tobacco. No barriers to communication noted, The patient speaks fluent Danish, Speaks appropriately for age. - Family history: Not pertinent. - : The pt / caregiver states he / she is not on anticoagulants. Home medication list is obtained from the patient. - Exposure Risk Screening:: None identified. Vital Signs: 02/10 08:41 BP 171 / 94; Pulse 80; Resp 18; Temp 98.4(O); Pulse Ox 99% on R/A; Weight 63.5 kg / ct3 139.99 lbs (R); Height 5 ft. 7 in. (170.18 cm) (R); 08:57 BP 171 / 92 (auto/); jc4 08:59 Pulse 72 MON; Pulse Ox 97% ; jc4 09:00 BP 158 / 76 (auto/); jc4 09:00 Pulse 71 MON; Pulse Ox 97% ; jc4 09:15 BP 157 / 73 (auto/); jc4 09:15 Pulse 67 MON; Pulse Ox 97% ; jc4 09:30 BP 148 / 69 (auto/); jc4 09:30 Pulse 67 MON; Pulse Ox 93% ; jc4 09:45 BP 155 / 81 (auto/); jc4 09:45 Pulse 69 MON; Pulse Ox 93% ; jc4 10:00 BP 142 / 79 (auto/); jc4 10:00 Pulse 70 MON; Pulse Ox 93% ; jc4 10:12 BP 142 / 79; Pulse 78; Resp 20; Pulse Ox 93% on R/A; Pain 2/10; jc4 10:15 BP 145 / 90 (auto/); jc4 10:15 Pulse 70 MON; Pulse Ox 94% ; jc4 10:30 BP 148 / 80 (auto/); jc4 10:30 Pulse 74 MON; Pulse Ox 92% ; jc4 10:44 Pulse 75 MON; Pulse Ox 92% ; jc4 10:45 BP 146 / 90 (auto/); jc4 11:12 Pulse 72 MON; Pulse Ox 93% ; jc4 11:15 BP 165 / 89 (auto/); jc4 11:30 BP 155 / 83 (auto/); jc4 11:30 Pulse 75 MON; Pulse Ox 93% ; jc4 12:51 BP 122 / 76 (auto/); jc4 12:52 Pulse 75 MON; Pulse Ox 94% ; jc4 15:03 Pulse 70 MON; Pulse Ox 94% ; jc4 15:04 BP 138 / 81 (auto/); jc4 15:14 Pulse 68 MON; Pulse Ox 93% ; jc4 15:15 BP 152 / 70 (auto/); jc4 15:30 BP 124 / 80 (auto/); jc4 15:32 Pulse 75 MON; Pulse Ox 94% ; jc4 15:45 BP 159 / 89 (auto/); jc4 15:46 Pulse 77 MON; Pulse Ox 94% ; jc4 16:06 BP 147 / 95; Pulse 74; Resp 20; Temp 98.1(O); Pulse Ox 95% on R/A; Pain 0/10; jc4 08:41 Body Mass Index 21.93 (63.50 kg, 170.18 cm) ct3 MDM: 08:51 Administrative Asst/Pulse Ox/q 30 min VS ordered. sd1 08:51 IV Saline Lock ordered. sd1 08:51 Rhythm Strip to chart ordered. sd1 08:51 Undress patient appropriately for examination ordered. sd1 08:52 Basic Metabolic Profile Ordered. EDMS 08:52 CBC with Diff Ordered. EDMS 08:52 Cardiac Injury Profile Ordered. EDMS 08:52 Prothrombin Time Profile\E\INR Ordered. EDMS 08:52 Troponin Ordered. EDMS 08:52 portable chest Ordered. EDMS 08:53 ECG WITH READING ER PHYS+CARDIAG ordered. EDMS 08:58 Aspirin Chewable Tablet 81 mg PO once ordered. sd1 08:59 CT Head Without Contrast Ordered. EDMS 08:59 morphine 4 mg IVP every 15 minutes; Document pain score/vitals after each dose (Hold if sd1 SBP < 90mmHg) x2 ordered. 08:59 Ondansetron 4 mg IVP once ordered. sd1 09:09 MAGNESIUM LEVEL Ordered. EDMS 09:45 Financial registration complete. mm15 10:03 [facility] Payment Agreement was scanned into [email or web address] and attached to record. mm15 10:13 Basic Metabolic Profile Reviewed. sd1 10:13 CBC with Diff Reviewed. sd1 10:13 Prothrombin Time Profile\E\INR Reviewed. sd1 10:13 Cardiac Injury Profile Reviewed. sd1 10:13 Troponin Reviewed. sd1 10:13 MAGNESIUM LEVEL Reviewed. sd1 11:06 Redraw CIP &Troponin (put time in details section) ordered. sd1 11:06 Repeat EKG (put time details section) ordered. sd1 11:12 Redraw CIP &Troponin (put time in details section) complete. lbd 11:12 Repeat EKG (put time details section) complete. lbd 11:15 ECG WITH READING ER PHYS ordered. EDMS 11:16 CARDIAC MARKER PANEL Ordered. EDMS 12:53 Acetaminophen Tablet 650 mg PO once ordered. jc4 15:30 CT Head Without Contrast Reviewed. sd1 15:31 CARDIAC MARKER PANEL Reviewed. sd1 02/11 12:02 T-Sheet-- Draft Copy was scanned into [email or web address] and attached to record. gb 12:03 ECG/EKG was scanned into [email or web address] and attached to record. gb 12:03 Trend VS was scanned into [email or web address] and attached to record. gb Administered Medications: 02/10 09:12 Drug: Ondansetron 4 mg [ondansetron HCl 2 mg/mL intravenous solution (2 mL)] Route: jc4 IVP; Site: right antecubital; 09:14 Drug: morphine 4 mg [morphine 4 mg/mL intravenous cartridge (1 mL)] Route: IVP; Site: [facility] right antecubital; 10:12 Follow up: BP 142 / 79; Pulse 78 bpm; Resp 20 bpm; Pulse Ox 93% RA; Pain 03/20 Adult jc4 09:20 Drug: Aspirin 81 mg [aspirin 81 mg chewable tablet (1 tabs)] Route: PO; jc4 12:55 Drug: Acetaminophen 650 mg [acetaminophen 325 mg tablet (2 tabs)] Route: PO; jc4 Signatures: Dispatcher [employer] EDMS Cee Loera MD MD sd1 Ann-Marie Reyez, Inventory Assistant Unit lbd Wilton Parr, RN RN Prema Pal, [place] Reg Marion Beckwith, RN RN jc4 Mary Aparicio mm15 The chart was reviewed and I authenticate all verbal orders and agree with the evaluation and treatment provided.Corrections: (The following items were deleted from the chart) 09:08 08:59 MAGNESIUM LEVEL+LAB ordered. EDMS EDMS Attachments: 10:03 [facility] Payment Agreement mm15 02/11 12:02 T-Sheet-- Draft Copy gb 12:03 ECG/EKG gb Chart Complete MTDD
== END 2016-02-11 16:08 | disposition home or self-care (01) ==
LOC: M ED 08:34
DX: R51 Headache (principal); I48.91 Unspecified atrial fibrillation; I50.20 Unspecified systolic (congestive) heart failure; J44.9 Chronic obstructive pulmonary disease, unspecified; K21.9 Gastro-esophageal reflux disease without esophagitis; E78.00 Pure hypercholesterolemia, unspecified; I10 Essential (primary) hypertension; Z87.891 Personal history of nicotine dependence; Z79.82 Long term (current) use of aspirin; Z79.899 Other long term (current) drug therapy; Z79.51 Long term (current) use of inhaled steroids; Z88.0 Allergy status to penicillin
CPT/HCPCS: 70450; 71010; 80048; 82550; 82553; 83735; 84484; 85025; 85610; 93005; 93041; 96374; 96375; 99285; J2405

== ENCOUNTER 2016-02-14 08:35 | Inpatient (IN) | payer MEDICARE ==
[~2016-02-14] VITALS: Ht 170.2 cm; Wt 108.5 kg
[2016-02-14 09:05] LABS: BASO % 0.6 % (0.0-1.0); EOS # 0.2 K/mm3 (0.0-0.50); EOS % 2.6 % (0.0-3.0); LARGE UNSTAINED CELL # 0.3 K/mm3 (0.0-0.4); LARGE UNSTAINED CELL % 3.4 % (0.0-4.0); MEAN CORPUSCULAR HGB CONC 34.1 g/dl (32.0-36.5); MEAN CORPUSCULAR VOLUME 93.6 fl (80.0-96.0); MONO # 0.4 K/mm3 (0.0-0.8); MONO % 5.3 % (0.0-5.0); NEUTROPHILS # 4.5 K/mm3 (1.8-7.7); NEUTROPHILS % 61.1 % (36.0-66.0); PLATELET COUNT, AUTOMATED 184 k/mm3 (150-450); RED CELL DISTRIBUTION WIDTH 11.9 % (11.5-14.5); WHITE BLOOD COUNT 7.4 K/mm3 (4.0-10.0)
[2016-02-14 09:29] LABS: ANION GAP 6 MEQ/L (8-16); BLOOD UREA NITROGEN 16 MG/DL (7-18); CALCIUM LEVEL 9.1 MG/DL (8.8-10.2); CARBON DIOXIDE LEVEL 30 MEQ/L (21-32); CHLORIDE LEVEL 106 MEQ/L (98-107); CREATININE FOR GFR 1.11 MG/DL (0.70-1.30); GLOMERULAR FILTRATION RATE > 60.0 (>49); GLUCOSE, FASTING 128 MG/DL (80-110); SODIUM LEVEL 142 MEQ/L (136-145)
[2016-02-14] MEDS ORDERED: ASPIRIN 81 MG CHEW TABLET As Ordered ONE (09:35)
--- NOTE | 2016-02-14 10:20 | REP ---
SINGLE VIEW CHEST: AP portable view of the chest is performed. Comparison 02/11/2016. There is mild cardiomegaly. There is no acute infiltrate. Mediastinal silhouette is unchanged. IMPRESSION: Mild cardiomegaly. No acute infiltrate. Signed by Francisco Talamantes MD 02/14/2016 01:27 P
[2016-02-14] MEDS ORDERED: ASPI81TA7 PO (10:46)
--- NOTE | 2016-02-14 13:17 | EDDOCDS ---
Physician Documentation [facility] Name: Rocky Lazo Age: 70 yrs Sex: Male : 1945 Arrival Date: 02/14/2016 Time: 08:35 Bed 1 Private MD: Jalil Griffith Disposition: 02/14/16 10:38 Hospitalization ordered by Carine Tracy for Inpatient Admission. Preliminary diagnosis are Chest pain, unspecified, Bradycardia, unspecified. - Bed requested for PCU. - Status is Inpatient Admission. jmk - Condition is Stable. - Problem is new. - Symptoms are unchanged. Historical: - Allergies: PCN; - Home Meds: 1. aspirin 81 mg Oral chew 1 tab once daily (Last dose: 02/14/2016 07:00) 2. breo 100/25mcg 1 puff daily (Last dose: 02/14/2016 07:00) 3. Calcium + Vitamin D 600 mg calcium- 200 unit Oral tab twice a day (Last dose: 02/14/2016 07:00) 4. Lipitor 10 mg Oral tab 1 tab once daily (Last dose: 02/14/2016 07:00) 5. losartan 100 mg oral tab 1 tab once daily (Last dose: 02/14/2016 07:00) 6. magnesium oxide 400 mg Oral tab 800 mg twice a day (Last dose: 02/14/2016 07:00) 7. multivitamin Oral tab 1 tab daily (Last dose: 02/14/2016 07:00) 8. Nitrostat 0.4 mg SL subl 1 tab every 5 minutes as needed (Last dose: Unknown) 9. omeprazole 20 mg Oral cpDR 1 cap 2 times per day (Last dose: 02/14/2016 07:00) 10. oxymetazoline 0.05 % nasal spry 1 sprays as needed (Last dose: 02/14/2016 07:00) 11. spironolactone 50 mg Oral tab 1 tab once daily (Last dose: 02/14/2016 07:00) 12. torsemide 5 mg oral tab 1 tab once daily (Last dose: 02/14/2016 07:00) 13. tylenol ES 500 mg as needed as needed (Last dose: Unknown) 14. Ventolin HFA 90 mcg/actuation Nebulizer HFAA 2 puffs every 4 hours as needed (Last dose: 02/14/2016 07:00) 15. Zyrtec 10 mg Oral tab 1 tab once daily (Last dose: 02/14/2016 07:00) - PMHx: Atrial Fib; CHF; COPD; GERD; Hypercholesterolemia; Hypertension; - PSHx: cardiac cath; right testicle; right shoulder; Cardiac Ablation; - Social history: Smoking status: Patient states former smoker of tobacco. No barriers to communication noted, Speaks appropriately for age. - Family history: Not pertinent. - : The pt / caregiver states he / she is not on anticoagulants. Home medication list is obtained from the patient. - Exposure Risk Screening:: None identified. Vital Signs: 02/13 08:39 BP 135 / 79 (auto/); ml6 08:39 Pulse 82 MON; Resp 18; Pulse Ox 98% on R/A; Pain 2/10; ml6 08:53 Weight 108.86 kg / 240 lbs (R); Height 5 ft. 7 in. (170.18 cm) (R); ml6 09:30 BP 149 / 77 (auto/); jmk 09:30 Pulse 64 MON; Pulse Ox 94% ; jmk 09:43 Temp 98.7; Weight 108.18 kg / 238.5 lbs; jrd 09:44 Pulse 63 MON; Pulse Ox 95% ; jmk 09:45 BP 163 / 74 (auto/); jmk 09:59 Pulse 65 MON; Pulse Ox 95% ; jmk 10:00 BP 143 / 68 (auto/); jmk 10:14 Pulse 61 MON; Pulse Ox 95% ; jmk 10:15 BP 137 / 74 (auto/); jmk 10:29 Pulse 64 MON; Pulse Ox 96% ; jmk 10:30 BP 187 / 92 (auto/); jmk 10:44 Pulse 66 MON; Pulse Ox 96% ; jmk 10:45 BP 176 / 100 (auto/); jmk 10:59 Pulse 71 MON; Pulse Ox 96% ; jmk 11:00 BP 165 / 83 (auto/); jmk 11:15 BP 160 / 90 (auto/); jmk 11:15 Pulse 65 MON; Pulse Ox 95% ; jmk 13:12 BP 158 / 87; Pulse 66; Resp 18; Temp 98.7(TE); Pulse Ox 96% ; Pain 0/10; jmk 09:43 Body Mass Index 37.35 (108.18 kg, 170.18 cm) jrd MDM: 08:40 ECG WITH READING ER PHYS+CARDIAG ordered. EDMS 08:52 Garment Mender/Pulse Ox/q 30 min VS ordered. br1 08:52 IV Saline Lock ordered. br1 08:52 Rhythm Strip to chart ordered. br1 08:52 Undress patient appropriately for examination ordered. br1 08:53 Basic Metabolic Profile Ordered. EDMS 08:53 CBC with Diff Ordered. EDMS 08:53 Cardiac Injury Profile Ordered. EDMS 08:53 Troponin Ordered. EDMS 08:54 portable chest Ordered. EDMS 09:28 Oral Temp ordered. br1 09:28 Aspirin 324 mg PO once ordered. br1 09:28 Nitrostat 0.4 mg Sublingual once ordered. br1 10:01 Financial registration complete. mm15 10:02 [facility] Payment Agreement was scanned into [employer] and attached to record. mm15 10:18 Basic Metabolic Profile Reviewed. br1 10:18 CBC with Diff Reviewed. br1 10:18 Cardiac Injury Profile Reviewed. br1 10:18 Troponin Reviewed. br1 10:24 BED REQUEST+ADM ordered. EDMS 11:01 CARDIAC INJURY PROFILE Ordered. EDMS 11:01 CARDIAC INJURY PROFILE Ordered. EDMS 11:03 Admission / Observation Status ordered. EDMS 11:03 2 GRAM SODIUM DIET ordered. EDMS Administered Medications: 09:41 Drug: Aspirin 324 mg [aspirin 81 mg chewable tablet (4 tabs)] Route: PO; jmk 09:52 Not Given (presently without pain): Nitrostat 0.4 mg Sublingual once jmk Signatures: Dispatcher [employer] EDMS Ann-Marie Reyez, Digital Content Specialist Unit lbd William Macdonald RN RN jmk Roggie, Brian, MD MD br1 Lenny Faria, KATIE RN ml6 Mary Aparicio mm15 The chart was reviewed and I authenticate all verbal orders and agree with the evaluation and treatment provided.Attachments: 10:02 [facility] Payment Agreement mm15 MTDD
--- NOTE | 2016-02-14 13:17 | EDDOCDS ---
Nurse's Notes [facility] Name: Rocky Lazo Age: 70 yrs Sex: Male : 1945 Arrival Date: 02/14/2016 Time: 08:35 Bed 1 Private MD: Jalil Griffith Diagnosis: Chest pain, unspecified;Bradycardia, unspecified Presentation: 02/13 08:37 Presenting complaint: Patient states: states HR 40 and chest pressure that began 1 hour ml6 AUTHOR'S AGENT. Adult Sepsis Screening: The patient does not have new or worsening altered mentation. Patient's respiratory rate is less than 22. Systolic blood pressure is greater than 100. Patient has a qSOFA score of 0- Negative Sepsis Screen. Suicide/Homicide risk assessment- the patient denies having any suicidal and/or homicidal ideations and does not present with any other emotional, behavioral or mental health complaints. Status: Patient is not a manager field service or dependent. Transition of care: patient was not received from another setting of care. 08:37 Acuity: JACINTO Level 2 ml6 08:37 Method Of Arrival: Walkin/Carried/Asstd ml6 08:37 Red Flag criteria, patient assessed and taken directly to a bed. ml6 Triage Assessment: 08:37 General: Appears in no apparent distress, Behavior is appropriate for age, cooperative. ml6 Pain: Location: chest Pain currently is 2 out of 10 on a pain scale. Pain does not radiate. Quality of pain is described as pressure, Pain began 1 hour ago Is continuous Alleviated by Aggravated by increased activity. The patient is triaged at the bedside. See Assessment in Nurses Notes section of ED record. Neurological: No deficits noted. Level of Consciousness is awake, alert, Oriented to person, place, time. Cardiovascular: No deficits noted. Capillary refill < 3 seconds is brisk in bilateral fingers toes Heart tones S1 S2 present. Cardiovascular: Edema is absent. Pulses are all present. Rhythm is irregular Chest pain is described as vague, quality is pressure, is located in substernal area radiates Does not radiate. episodes are continuous. Respiratory: No deficits noted. Airway is patent Respiratory effort is even, unlabored, Respiratory pattern is regular, symmetrical, Breath sounds are clear bilaterally. GI: No deficits noted. Historical: - Allergies: PCN; - Home Meds: 1. aspirin 81 mg Oral chew 1 tab once daily (Last dose: 02/14/2016 07:00) 2. breo 100/25mcg 1 puff daily (Last dose: 02/14/2016 07:00) 3. Calcium + Vitamin D 600 mg calcium- 200 unit Oral tab twice a day (Last dose: 02/14/2016 07:00) 4. Lipitor 10 mg Oral tab 1 tab once daily (Last dose: 02/14/2016 07:00) 5. losartan 100 mg oral tab 1 tab once daily (Last dose: 02/14/2016 07:00) 6. magnesium oxide 400 mg Oral tab 800 mg twice a day (Last dose: 02/14/2016 07:00) 7. multivitamin Oral tab 1 tab daily (Last dose: 02/14/2016 07:00) 8. Nitrostat 0.4 mg SL subl 1 tab every 5 minutes as needed (Last dose: Unknown) 9. omeprazole 20 mg Oral cpDR 1 cap 2 times per day (Last dose: 02/14/2016 07:00) 10. oxymetazoline 0.05 % nasal spry 1 sprays as needed (Last dose: 02/14/2016 07:00) 11. spironolactone 50 mg Oral tab 1 tab once daily (Last dose: 02/14/2016 07:00) 12. torsemide 5 mg oral tab 1 tab once daily (Last dose: 02/14/2016 07:00) 13. tylenol ES 500 mg as needed as needed (Last dose: Unknown) 14. Ventolin HFA 90 mcg/actuation Nebulizer HFAA 2 puffs every 4 hours as needed (Last dose: 02/14/2016 07:00) 15. Zyrtec 10 mg Oral tab 1 tab once daily (Last dose: 02/14/2016 07:00) - PMHx: Atrial Fib; CHF; COPD; GERD; Hypercholesterolemia; Hypertension; - PSHx: cardiac cath; right testicle; right shoulder; Cardiac Ablation; - Social history: Smoking status: Patient states former smoker of tobacco. No barriers to communication noted, Speaks appropriately for age. - Family history: Not pertinent. - : The pt / caregiver states he / she is not on anticoagulants. Home medication list is obtained from the patient. - Exposure Risk Screening:: None identified. Screenin:00 Screening information is obtained from the patient. Fall risk: No risks identified. jmk Assistance ADL's: requires no assistance with activities of daily living. Abuse/DV Screen: The patient / caregiver reports he/she is: not in a situation that causes fear, pain or injury. Nutritional screening: No deficits noted. Advance Directives: Currently, there is no health care proxy. There is an active DNR order but there is no copy available at this time. There is no living will. There is no Power of Over [employer] Targeting Supervisor. Advance directive information has not previously been placed in an [facility] medical record. home support is adequate. Assessment: 08:57 General: Appears in no apparent distress. Neurological: Level of Consciousness is jmk awake, alert, Oriented to person, place, time, Reports headache pain about forehead that is not reproduced with palpation of facial sinuses. Cardiovascular: Capillary refill < 3 seconds Clubbing of nail beds is absent JVD is absent Heart tones S1 S2 present Edema is absent. Rhythm is sinus rhythm with unifocal PVCs. Respiratory: Airway is patent Respiratory effort is even, unlabored, Breath sounds are clear bilaterally. GI: Abdomen is non- distended obese, Bowel sounds present X 4 quads. Abd is soft and non tender. 09:41 General: Appears states head pain has decreased to 2/10. without chest discomfort jmk presently. states pain has been intermittent and seconds duration. monitor is continuing as sr with unifocal PVCs. provider aware. 10:44 General: Appears hospitalist at side.. overall unchanged. jmk 11:23 General: Appears without chest pain presently. Monitor continues as sr with PVCS, jmk unifocal. states head pain has also resolved and states it is intermittent in nature and not necessarily present with presence of chest pain. 13:13 General: Appears presenytly without pain or headache. Monitor is sr with unifocal PVCs. [facility] diet has been provided and taken well,. SL intact. admitted. Vital Signs: 08:39 BP 135 / 79 (auto/); ml6 08:39 Pulse 82 MON; Resp 18; Pulse Ox 98% on R/A; Pain 2/10; ml6 08:53 Weight 108.86 kg (R); Height 5 ft. 7 in. (170.18 cm) (R); ml6 09:30 BP 149 / 77 (auto/); jmk 09:30 Pulse 64 MON; Pulse Ox 94% ; jmk 09:43 Temp 98.7; Weight 108.18 kg; jrd 09:44 Pulse 63 MON; Pulse Ox 95% ; jmk 09:45 BP 163 / 74 (auto/); jmk 09:59 Pulse 65 MON; Pulse Ox 95% ; jmk 10:00 BP 143 / 68 (auto/); jmk 10:14 Pulse 61 MON; Pulse Ox 95% ; jmk 10:15 BP 137 / 74 (auto/); jmk 10:29 Pulse 64 MON; Pulse Ox 96% ; jmk 10:30 BP 187 / 92 (auto/); jmk 10:44 Pulse 66 MON; Pulse Ox 96% ; jmk 10:45 BP 176 / 100 (auto/); jmk 10:59 Pulse 71 MON; Pulse Ox 96% ; jmk 11:00 BP 165 / 83 (auto/); jmk 11:15 BP 160 / 90 (auto/); jmk 11:15 Pulse 65 MON; Pulse Ox 95% ; jmk 13:12 BP 158 / 87; Pulse 66; Resp 18; Temp 98.7(TE); Pulse Ox 96% ; Pain 0/10; jmk 09:43 Body Mass Index 37.35 (108.18 kg, 170.18 cm) [facility] Vitals: 08:48 Log In Time: February 14, 2016 at 08:36. ml6 ED Course: 08:36 Patient visited by Mary Aparicio. mm15 08:36 Patient moved to Waiting mm15 08:37 Jalil Griffith is Private Physician. mm15 08:39 Patient moved to 1 mm15 08:46 EKG done. (by ED staff). Reviewed by Leonid Garsia MD. jrd 08:47 Patient visited by Tien Chavis PCA. jrd 08:48 Triage Initiated ml6 08:52 Leonid Garsia MD is Attending Physician. br1 09:00 The patient / caregiver is instructed regarding the plan of care and ED course. jmk 09:00 Inserted saline lock: 20 gauge in right antecubital area. jmk 09:01 Basic Metabolic Profile Sent. jmk 09:01 CBC with Diff Sent. jmk 09:01 Cardiac Injury Profile Sent. jmk 09:01 Troponin Sent. jmk 09:27 Patient visited by Leonid Garsia MD. br1 10:02 [facility] Payment Agreement was scanned into [employer] and attached to record. mm15 10:20 Patient visited by Leonid Garsia MD. br1 10:34 portable chest Returned. EDMS 10:37 Carine Tracy is Hospitalizing Provider. br1 Administered Medications: 09:41 Drug: Aspirin 324 mg [aspirin 81 mg chewable tablet (4 tabs)] Route: PO; jmk 09:52 Not Given (presently without pain): Nitrostat 0.4 mg Sublingual once jmk Intake: 13:13 PO: 260.00ml; Total: 260.00ml. jmk Output: 13:13 Urine: 600.00ml; Total: 600.00ml. jmk Order Results: Lab Order: Basic Metabolic Profile; SPEC'M 02/14/16 08:51 Test: GLUCOSE, FASTING; Value: 128; Range: 80-110; Abnormal: Above high normal; Units: MG/DL; Status: F Test: BLOOD UREA NITROGEN; Value: 16; Range: 7-18; Units: MG/DL; Status: F Test: CREATININE FOR GFR; Value: 1.11; Range: 0.70-1.30; Units: MG/DL; Status: F Test: GLOMERULAR FILTRATION RATE; Value: > 60.0; Range: >49; Status: F Test: SODIUM LEVEL; Value: 142; Range: 136-145; Units: MEQ/L; Status: F Test: POTASSIUM SERUM; Value: 4.0; Range: 3.5-5.1; Units: MEQ/L; Status: F Test: CHLORIDE LEVEL; Value: 106; Range: 98-107; Units: MEQ/L; Status: F Test: CARBON DIOXIDE LEVEL; Value: 30; Range: 21-32; Units: MEQ/L; Status: F Test: ANION GAP; Value: 6; Range: 8-16; Abnormal: Below low normal; Units: MEQ/L; Status: F Test: CALCIUM LEVEL; Value: 9.1; Range: 8.8-10.2; Units: MG/DL; Status: F Test Note: ; Units are mL/min/1.73 m2 Chronic Kidney Disease Staging per NKF: Stage I & II GFR >=60 Normal to Mildly Decreased Stage III GFR 30-59 Moderately Decreased Stage IV GFR 15-29 Severely Decreased Stage V GFR <15 Very Little GFR Left ESRD GFR <15 on [employer] Lab Order: CBC with Diff; SPEC'M 02/14/16 08:51 Test: WHITE BLOOD COUNT; Value: 7.4; Range: 4.0-10.0; Units: K/mm3; Status: F Test: RED BLOOD COUNT; Value: 4.71; Range: 4.30-6.10; Units: M/mm3; Status: F Test: HEMOGLOBIN; Value: 15.1; Range: 14.0-18.0; Units: g/dl; Status: F Test: HEMATOCRIT; Value: 44.1; Range: 42.0-52.0; Units: %; Status: F Test: MEAN CORPUSCULAR VOLUME; Value: 93.6; Range: 80.0-96.0; Units: fl; Status: F Test: MEAN CORPUSCULAR HEMOGLOBIN; Value: 32.0; Range: 27.0-33.0; Units: pg; Status: F Test: MEAN CORPUSCULAR HGB CONC; Value: 34.1; Range: 32.0-36.5; Units: g/dl; Status: F Test: RED CELL DISTRIBUTION WIDTH; Value: 11.9; Range: 11.5-14.5; Units: %; Status: F Test: PLATELET COUNT, AUTOMATED; Value: 184; Range: 150-450; Units: k/mm3; Status: F Test: NEUTROPHILS %; Value: 61.1; Range: 36.0-66.0; Units: %; Status: F Test: LYMPH %; Value: 27.0; Range: 24.0-44.0; Units: %; Status: F Test: MONO %; Value: 5.3; Range: 0.0-5.0; Abnormal: Above high normal; Units: %; Status: F Test: EOS %; Value: 2.6; Range: 0.0-3.0; Units: %; Status: F Test: BASO %; Value: 0.6; Range: 0.0-1.0; Units: %; Status: F Test: LARGE UNSTAINED CELL %; Value: 3.4; Range: 0.0-4.0; Units: %; Status: F Test: NEUTROPHILS #; Value: 4.5; Range: 1.8-7.7; Units: K/mm3; Status: F Test: LYMPH #; Value: 2.0; Range: 1.5-4.5; Units: K/mm3; Status: F Test: MONO #; Value: 0.4; Range: 0.0-0.8; Units: K/mm3; Status: F Test: EOS #; Value: 0.2; Range: 0.0-0.50; Units: K/mm3; Status: F Test: BASO #; Value: 0.0; Range: 0.0-0.2; Units: K/mm3; Status: F Test: LARGE UNSTAINED CELL #; Value: 0.3; Range: 0.0-0.4; Units: K/mm3; Status: F Lab Order: Cardiac Injury Profile; [facility] 02/14/16 08:51 Test: CPK CREATINE PHOSPHOKINASE; Value: 86; Range: 39-308; Units: U/L; Status: F Test: CK-MB VALUE MASS; Value: 1.0; Range: 0.0-3.6; Units: NG/ML; Status: F Test: MB/CK RELATIVE INDEX; Value: 1.16; Range: < OR =4; Status: F Test Note: ; DIAGNOSIS CRITERIA MMB ng/ml Relative Index (RI) NON-AMI < or = 5 N/A BERTRAND ZONE > 5 < or = 4 AMI > 5 > 4 Lab Order: Troponin; [facility] 02/14/16 08:51 Test: TROPONIN I; Value: 0.02; Range: < 0.10; Units: NG/ML; Status: F Test Note: ; Troponin I Reference Interval for Supersolid LOCI: 99th Percentile= 0.00-0.045 ng/ml Risk Stratification: <= 0.10 ng/ml Decreased Risk for Adverse Clinical Events. 0.10-1.50 ng/ml Increased Risk for Adverse Clinical Events. Evaluation of additional criterion and/or repeat testing in 2-6 hours is suggested to rule out myocardial damage. >= 1.50 ng/ml Indicative of Myocardial Injury. Lab Order: CARDIAC INJURY PROFILE; [facility] 02/14/16 11:55 Test: CPK CREATINE PHOSPHOKINASE; Value: 81; Range: 39-308; Units: U/L; Status: F Test: CK-MB VALUE MASS; Value: 1.2; Range: 0.0-3.6; Units: NG/ML; Status: F Test: MB/CK RELATIVE INDEX; Value: 1.48; Range: < OR =4; Status: F Test Note: ; DIAGNOSIS CRITERIA MMB ng/ml Relative Index (RI) NON-AMI < or = 5 N/A BERTRAND ZONE > 5 < or = 4 AMI > 5 > 4 Radiology Order: portable chest Test: portable chest REASON FOR EXAMINATION: Chest Pain; SINGLE VIEW CHEST:; ; AP portable view of the chest is performed. Comparison 02/11/2016. There is; mild cardiomegaly. There is no acute infiltrate. Mediastinal silhouette is; unchanged.; ; IMPRESSION:; Mild cardiomegaly. No acute infiltrate.; ; Unreviewed; Outcome: 10:38 Decision to Hospitalize by Provider. br1 11:48 Admission hand-off: Report Faxed Fax receipt verified by stewardesses teacher. barney 13:15 Discharge Assessment: Patient awake, alert and oriented x 3. No cognitive and/or k functional deficits noted. Patient verbalized understanding of disposition instructions. patient administered narcotics - no. The following High Risk Discharge criteria are identified: None. Admitted to PCU accompanied by nurse, via stretcher, on monitor. Condition: good. No special radiology studies were completed. Property :Personal belongings accompany Pt. 13:16 Patient left the ED. [facility] Signatures: Dispatcher [employer] EDWilliam Waters,RN RN brendak Leonid Garsia MD MD br1 Lenny Faria, RN RN ml6 Mary Aparicio mm15 Tien Chavis PCA SUPERVISOR HARVESTING jrd MTDChanda
[2016-02-14 13:20] VITALS: BP 140/86
[2016-02-14] MEDS ORDERED: ACETAMINOPHEN 500 MG TAB PO PRN (13:30)
[2016-02-14] MEDS ORDERED: ALBUTEROL 90 MCG/ACT 8GM HFA INHALER INH PRN (13:30)
[2016-02-14] MEDS ORDERED: NITROGLYCERIN 0.4 MG SUBL TABLET SL PRN (13:30)
[2016-02-14 16:00] VITALS: BP 152/85
[2016-02-14 16:14] LABS: MAGNESIUM LEVEL 2.2 MG/DL (1.8-2.4)
[2016-02-14] MEDS: SODIUM CHLORIDE NASAL 0.65% SPRAY BTL (OCEAN) SCH ×2 (16:57→21:09)
--- NOTE | 2016-02-14 19:33 | HPE ---
DATE OF ADMISSION: 02/14/2016 REASON FOR ADMISSION: Headache, bradycardia. HISTORY OF PRESENT ILLNESS: The patient is a 70-year-old male, primary provider Dr. Jalil Griffith, presented to the emergency room complaining of a heart rate of 40, mild chest pain and a headache. The patient stated that he has been having this worsening headache over the past few days. He has been recently diagnosed with a sinus infection and was prescribed Afrin which he has been taking regularly. In the emergency room, the patient was initially found to be with mild chest pain; however, first set of troponin was negative. EKG showed trigeminy. He denied any episodes of syncope. Chest pain was not related to activity, nonradiating, substernal, pressure-like. The patient was admitted under hospitalist service. REVIEW OF SYSTEMS: Twelve point review of systems was obtained, all which was negative except for those mentioned above. PAST MEDICAL HISTORY: Significant for: Chronic obstructive pulmonary disease (COPD). Atrial fibrillation, status post ablation. Gastroesophageal reflux disease (GERD). Hypertension. Hyperlipidemia. PAST SURGICAL HISTORY: Significant for: Cardiac ablation. Right shoulder surgery. Right testicular surgery. cardiac catheterization; that was negative. SOCIAL HISTORY: The patient states he used to smoke, quit in 1991. He used to drink heavily, quit in 2005. 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 ALLERGIES: To PENICILLIN; reaction rash. FAMILY HISTORY: Noncontributory. HOME MEDICATIONS: Include: - Tylenol 500 mg every 4 hours as needed for pain - albuterol sulfate two puffs inhaled every 4 hours as needed for shortness of breath - aspirin 81 mg by mouth daily - Lipitor 10 mg by mouth every 2 days - cetirizine 10 mg in the morning - losartan 100 mg by mouth twice a day - magnesium oxide 800 mg by mouth twice a day - nitroglycerine sublingual as needed for chest pain - omeprazole 20 mg by mouth twice a day - Afrin spray - spironolactone 50 mg by mouth in the morning - torsemide 5 mg by mouth in the morning PHYSICAL EXAMINATION: Vital signs: Blood pressure 135/79, pulse 82, respiratory rate 18, temperature 98.7, pulse oximetry 98% on room air. HEENT: Pupils equal, round and reactive to light accommodation supple. Neck: Supple. No jugular venous distention (JVD). Lungs: Clear to auscultation bilaterally. Abdomen: Soft, nontender, nondistended. Cardiac: Regular rate and rhythm. Extremities: No clubbing, cyanosis or edema. Skin: No new lesions or rashes. LABORATORY FINDINGS: WBC 7.4, hemoglobin 15, hematocrit 44, platelet count 184. Sodium 142, potassium 4, chloride 106, BUN 16, creatinine 1.1, fasting glucose 128, magnesium 2.2. First set of troponin 0.02. ASSESSMENT and PLAN: 1. Headache. Likely secondary to Afrin; it was held. We will replace with nasal saline and Zyrtec for his sinus infection and sinusitis. 2. Trigeminy. Spoke with Dr. Ellis who felt that since he is asymptomatic, we can monitor him on cardiac monitoring and rule him out for any ischemic disease and he can be discharged home. He recently had a monitor done outpatient. We will obtain records from the office. 3. Chest pain. We will continue to check cardiac enzymes and troponins. Repeat EKG in the morning. 4. History of hypertension. Continue home medication. 5. Hyperlipidemia. Continue home medication. 6. History of atrial fibrillation. Status post cardiac ablation. 7. History of congestive heart failure per history; however, a recent echocardiogram did not show any signs of congestive heart failure. We will defer to cardiology for continuing diuretics at this time. 8. Deep vein thrombosis (DVT) prophylaxis. Lovenox while in bed.
--- NOTE | 2016-02-14 19:55 | CR ---
DATE OF CONSULTATION: 02/14/2016 REFERRING PHYSICIAN: Dr. Uriel Andersen CARDIOLOGY CONSULTATION INDICATION: Intermittent chest discomfort. Frequent premature ventricular contractions (PVCs). This 70-year-old father of four grown children, retired resident of [place], [place], is well known to our cardiology practice with obesity, smoking-induced chronic obstructive pulmonary disease (COPD), gastroesophageal reflux disease, prior alcoholism, chronic hypertension/hypertensive heart disease complicated by abnormal electrocardiogram (EKG), paroxysmal atrial fibrillation, frequent PVCs, longstanding intermittent chest discomfort, non-effort related with low-risk stress testing. Cardiac catheterization, [facility], [place], April 2014, showing insignificant coronary disease, and pharmacological stress heart scan June 2015 showing no inducible chest pain, EKG change, or reversible myocardial perfusion defect. Has also been known to have preserved global left ventricular systolic function, mildly dilated left atrium, currently normal left ventricular (LV) diastolic function and estimated mean left atrial pressure. Serial brain natriuretic peptide (BNP) levels have been within normal limits dating back to 2004 to May 2015. Known mild pulmonary hypertension with normal right heart chamber sizes and central venous pressure. Chronic lower leg swelling attributed to venous insufficiency. Longstanding frequent asymptomatic PVCs with a successful radiofrequency PVC ablation April 2014. Holter monitor 01/08/2016 showed underlying sinus rhythm with rate varying from 47-103, averaging 69 beats per minute (BPM). No atrioventricular (AV) block. Rare asymptomatic premature atrial contractions (premature atrial contractions) (averaging 14 per hour, very brief runs of ectopic atrial tachycardia (longest seven beats, fastest 166 BPM), frequent asymptomatic PVCs (averaging 778 per hour), occasional ventricular couplets (37 per hour), and five runs of accelerated idioventricular rhythm (longest four beats with fastest rate 136 BPM ) but no ventricular tachycardia. The patient was asymptomatic during this monitored period. Last seen in our office 12/30/2015, and at that time his chief complaint remained recurrent pounding headaches. Claims to have had occasional short-lived lower retrosternal tightness but ongoing problems with gastroesophageal reflux. Admits to still ingesting caffeinated beverages. Denies any effort-related chest discomfort. Dyspnea would be his ultimate effort-limiting symptom. Denies orthopnea or nocturnal dyspnea. No history of dizziness, fall, or loss of consciousness. No claudication. Heart rate 59 BPM and regular with occasional to frequent irregularities, blood pressure 140/77 sitting, respiratory rate 16. Body mass index (BMI) 37. EKG showed sinus rhythm with frequent PVCs. Subtle interventricular conduction disturbance but was not changed from June 2015. Chemistry at that time confirmed electrolyte balance with normal renal function and thyroid-stimulating hormone (TSH). Over the course of the past several weeks, describes having had further problems with headaches attributed to his longstanding sinusitis. Has been prescribed preserved Zyrtec and previously Flonase. The latter was discontinued by Dr. Partida. Seen in the emergency room 02/11/2016 because of headaches, again attributed to his sinus problems. Despite his history of hypertension and PVCs was discharged with prescription for Afrin. He was also given a prescription for Tylenol with codeine. The latter prescription he did not fill. Came back to the emergency room earlier today, again with recurrent headaches, and when taking his blood pressure earlier today the machine recorded a heart rate in the 40s. He was also having some intermittent chest sensation. Continues to deny any effort-related chest discomfort. Was even shoveling snow yesterday without problems of that nature. Dyspnea remains his effort-limiting symptom. Has been free of any dizziness, falling, or loss of consciousness. No lateralizing neurological symptoms. No current dependent edema or weight change. Denies claudication. No lateralizing neurological deficit. CORONARY RISK FACTORS: Male gender, obesity, prior 30-year history of up to three packs per day smoking; quit 1991. Longstanding hypertension, hypercholesterolemia, and marginal glucose intolerance. No family history of premature coronary disease or symptomatic carotid vascular disease. OTHER PAST MEDICAL/SURGICAL HISTORY: 1. Right shoulder surgery 1976. 2. Testicular surgery 1989. 3. Chronic gastroesophageal reflux disease. 4. Smoking-induced COPD (follows with Dr. Box, pulmonary medicine). 5. Venous insufficiency with history of lower leg swelling. No known varicose veins or phlebitis. REVIEW OF SYSTEMS: Denies any fever, chills, or weight loss. Does feel he has been more congested lately. Wears corrective lenses. No hearing problems. Denies cough, hemoptysis, or sputum. Intermittent chest discomfort at rest with intermittent heartburn and reflux. No change in bowel habit or gastrointestinal (GI) bleeding. Denies arthralgia or myalgia. No rashes, lumps, or bumps. Occasional upper extremity paresthesia. No known cervical disc disease. Denies anxiety or depression. No history of anemia. Unaware of environmental allergies. All other systems review is negative. MEDICATIONS: Home medications include: - losartan 100 mg at bedtime - torsemide 5 mg daily - spironolactone 50 mg daily - Lipitor 10 mg at bedtime - aspirin 81 mg daily - Nitrostat 0.4 mg every 5 minutes as needed chest pain (despite the fact he has not been shown to have myocardial infarction or obstructive coronary disease [question]) - omeprazole 20 mg twice a day - magnesium oxide 400 mg tablets two twice a day - Ventolin inhaler two puffs four times a day as needed - Zyrtec 10 mg by mouth daily - Flonase one inhalation each nostril daily - Breo Ellipta 100/25 one inhalation daily - calcium with vitamin D one tablet twice a day - multivitamin. ALLERGIES: PENICILLIN (swelling). ADVANCED DIRECTIVES: Patient has an medical order for life-sustaining treatment (MOLST)/DO NOT RESUSCITATE form. PHYSICAL EXAMINATION: CONSTITUTIONAL: Bright, alert, late middle-aged male with barrel chest and moderate obesity. He lay comfortably with the head of the bed elevated 30 degrees. VITAL SIGNS: Heart rate 64 beats per minute and regular with occasional to frequent isolated irregularities. Blood pressure 124/66 supine, dropping to 120/60 sitting with legs dependent (both arms), respiratory rate 18 per minute, oxygen saturation 96% on room air. Afebrile. Weight 239.6 pounds, height 67 inches, body mass index (BMI) 37.5. EYES: Normal conjunctivae and lids. No pallor, icterus, or xanthelasma. ENT: Wears upper denture. Normal oral moisture. No central cyanosis. NECK: Trachea midline. Thyroid not enlarged. Jugular veins were at the level of the sternal angle with intermittent alas A waves. RESPIRATORY: Increased anteroposterior chest diameter with reduced chest excursion. Fair air entry over both lung keen with no inspiratory crepitations but prolongation of expiration. No current audible wheeze. CARDIOVASCULAR: Apical impulse not palpable. Heart sounds were quite distant. No audible gallop or murmur. Normal carotid upstrokes with variable volume related to his arrhythmia. No bruits. Upper extremity pulses and pedal pulses were symmetrical and normal. Abdominal aorta and femoral pulses not palpable. Has plus/minus pitting edema of both distal lower legs but no obvious varicose veins. No abdominal bruits. GASTROINTESTINAL: : Obese, nontender, soft abdomen with no splenomegaly. Normal bowel sounds. Rectal examination not indicated. MUSCULOSKELETAL: Walks with a normal gait. No obvious joint deformities. Normal spine curvature. SKIN: No rashes, ecchymotic lesions, pallor, or icterus. NEUROLOGIC/PSYCHIATRIC: Bright, alert, and oriented. Gave a lucid history. Eye, facial, and extremity movements were symmetrical and normal. Affect was normal. INVESTIGATIONS: Portable upright chest x-ray taken earlier today was reviewed independently and shows heart size within normal limits for this technique. Greater vessels appear to be normal. Normal pulmonary vasculature. No localized infiltrate or pleural effusion. Normal-appearing bony structures. ELECTROCARDIOGRAM: Tracing reviewed independently shows sinus rhythm at 70 BPM with frequent isolated unifocal PVCs, having an LBBB configuration. Possible left atrial conduction disturbance, but normal CT interval. Prolonged QRS duration, consistent with incomplete right bundle branch block. Subtle inferoapical ST scooping but normal QT interval. Appearance not significantly changed from 12/30/2015. LABORATORY DATA: Blood work this morning showed normal complete blood count with hemoglobin 15.1. Electrolytes were normal with potassium 4.0, calcium 9.1. I ordered a magnesium level, and this is pending. Other electrolytes were normal. BUN 16, creatinine 1.1, random glucose 128. Serial CPK values have been negative with negative MB fractions. Troponin I level was negative. IMPRESSION/PLAN: 1. Chest pain (precordial): From his description, there are multiple nonanginal features that would allow us to feel safe in ruling out myocardial ischemia as the origin of this complaint. This has been supported by serial negative cardiac enzymes. The patient has had repeated negative stress heart scans and cardiac catheterization April 2014 showing insignificant coronary luminal irregularities. Yesterday was shoveling snow without chest discomfort. Remains on protective angiotensin receptor apollo, statin therapy, and aspirin. I have no doubt his distress is related to his well-documented gastroesophageal reflux disease and perhaps an element of noncompliance. Still drinking caffeinated beverages and still eating and drinking within 2-3 hours of lying down. Antireflux measures should be emphasized. Continues on omeprazole 20 mg twice a day. 2. Premature ventricular contractions (PVCs): Has had well-known frequent yet asymptomatic PVCs. Despite the frequency (up to 780 per hour), has been free of any symptom or sign to suggest tachycardia-mediated cardiomyopathy. Magnesium level was pending on his omeprazole therapy, but other electrolytes are normal and in balance. No change has been made to his magnesium oxide and spironolactone therapies. Underlying etiology is believed to be hypertension, which appears to be controlled adequately. With his obesity we have requested nocturnal oximetry tonight to rule out possible contribution played by obstructive sleep apnea. 3. Lower leg swelling: A long-standing problem treated to venous insufficiency. Previous echocardiography/Doppler study failed to demonstrate right heart chamber enlargement, more than mild pulmonary hypertension, and normal IVC size and collapse against an elevated central venous pressure. Neck veins remained normal today. Jackson management would be continued modest salt and fluid intake restriction, weight loss and elevation of his legs when non- ambulatory. 4. Hypertensive heart disease (benign without heart failure): Though there is some mention of congestive heart failure in his chart in the past, heart size, Left ventricular systolic and diastolic function and serial troponin I levels have all been normal. Effort dyspnea has been achieved to his long-standing weight problem and prior heavy smoking history. Long-standing cough attributed to chronic sinusitis, as are his frequent headaches. Effort dyspnea and lower leg swelling as mentioned above, but no other symptoms or signs of congestion. Current blood pressure would be considered well-controlled and chemistry reflects I like light balance with normal renal and thyroid function. His low dose torsemide has been withheld until his serum magnesium level returns. No medication change has been made. I believe it to be prudent to observe him overnight and again if serial troponin I levels are negative, he could be discharged the morning and followed as an outpatient. I thank you for allowing me to per despite the care of your patient. Best regards. [facility]
[2016-02-14 20:00] VITALS: BP 141/66
[2016-02-14] MEDS ORDERED: LOSARTAN 50 MG TAB PO SCH (21:00)
[2016-02-14] MEDS ORDERED: ENOXAPARIN 40 MG/0.4 ML SYRINGE (J1650) SC SCH (21:00)
[2016-02-14] MEDS: OMEPRAZOLE 20 MG CAP PO SCH (21:09)
[2016-02-14] MEDS: MAGNESIUM OXIDE 400 MG TAB (MAG-OX) PO SCH (21:09)
[2016-02-14] MEDS: FLUTICASONE PROP 0.05% NASAL SPRAY 16 GM (FLONASE) SCH (21:09)
[2016-02-14 23:59] VITALS: BP 127/72
[2016-02-15 04:08] LABS: BASO # 0.1 K/mm3 (0.0-0.2); BASO % 1.3 % (0.0-1.0); EOS # 0.3 K/mm3 (0.0-0.50); EOS % 2.3 % (0.0-3.0); LARGE UNSTAINED CELL # 0.3 K/mm3 (0.0-0.4); LARGE UNSTAINED CELL % 2.9 % (0.0-4.0); LYMPH # 3.5 K/mm3 (1.5-4.5); LYMPH % 28.2 % (24.0-44.0); MEAN CORPUSCULAR HEMOGLOBIN 30.9 pg (27.0-33.0); MEAN CORPUSCULAR VOLUME 93.5 fl (80.0-96.0); MONO # 0.8 K/mm3 (0.0-0.8); MONO % 6.8 % (0.0-5.0); NEUTROPHILS # 6.6 K/mm3 (1.8-7.7); NEUTROPHILS % 58.6 % (36.0-66.0); PLATELET COUNT, AUTOMATED 195 k/mm3 (150-450); RED CELL DISTRIBUTION WIDTH 12.6 % (11.5-14.5); WHITE BLOOD COUNT 11.3 K/mm3 (4.0-10.0)
[2016-02-15 04:37] LABS: MAGNESIUM LEVEL 2.1 MG/DL (1.8-2.4)
[2016-02-15 04:45] VITALS: BP 154/72
--- NOTE | 2016-02-15 08:28 | ECGEPIP ---
Stationary ECG Study [facility] - ED Test Date: 2016-02-14 Pat Name: CAREY AKERS Department: Room: - Gender: M Lugger: [facility] : 1945 Requested By: KRISTA Christie Order Number: [id number] Reading MD: Cee Loera Measurements Intervals [place] Rate: 74 P: 46 CT: 166 QRS: 59 QRSD: 105 T: 32 QT: 406 QTc: 453 Interpretive Statements SINUS RHYTHM WITH OCCASIONAL VENTRICULAR PREMATURE COMPLEXES NSTTW ABNORMALITY INCREASED RATE 02/11/16 Electronically Signed On 02-15-2016 8:28:30 EST by Cee Loera
[2016-02-15] MEDS: SODIUM CHLORIDE NASAL 0.65% SPRAY BTL (OCEAN) SCH (08:38)
[2016-02-15] MEDS: MAGNESIUM OXIDE 400 MG TAB (MAG-OX) PO SCH (08:38)
[2016-02-15] MEDS: FLUTICASONE PROP 0.05% NASAL SPRAY 16 GM (FLONASE) SCH (08:38)
[2016-02-15] MEDS: OMEPRAZOLE 20 MG CAP PO SCH (08:39)
[2016-02-15] MEDS ORDERED: CETIRIZINE (ZyrTEC) 10 MG TAB PO SCH (09:00)
[2016-02-15] MEDS ORDERED: ASPIRIN 81 MG ENTERIC TAB PO SCH (09:00)
[2016-02-15] MEDS ORDERED: SPIRONOLACTONE 50 MG TAB PO SCH (09:00)
[2016-02-15] MEDS ORDERED: TORSEMIDE 5MG TABLET PO SCH (09:00)
[2016-02-15] MEDS ORDERED: MULTIVITAMINS/MINERALS THERAP 1 TAB PO SCH (09:00)
--- NOTE | 2016-02-15 12:49 | NOCOX ---
DATE OF STUDY: 02/14/2016 and 02/15/2016 Nocturnal recording oximetry study was performed on 02/14/2016 to 02/15/[address] Carine Tracy. The patient had variable desaturations at the beginning and the end of sleep time. Heart rate ranged from 31-86. Oxygen saturation ranged from 82% to 100%. The total time spent with an oxygen saturation less than 88% was 44 seconds. The longest continuous time with an oxygen saturation less than 88% was 22 seconds. It does appear that the patient had variable desaturations just at the beginning and at the end of sleep time. However, from approximately 12:15 a.m. to 4:00 a.m., respiratory events and desaturations were limited without significant hypoxia. I question whether or not the patient had his continuous positive airway pressure (CPAP) on the during the start of the study or whether there was an air leak. Technical Producer notes state that the CPAP was off at 4:00 a.m. IMPRESSION: For the most part, adequate oxygenation on CPAP of 17 cm of water pressure on room air without significant oxygen desaturation. There is some variability at the very beginning of the test and at the very end of the test, likely when the CPAP is not in use. If there is any concern for untreated sleep apnea or if the patient has excessive daytime somnolence, would consider retitration study.
--- NOTE | 2016-02-15 15:07 | ECGEPIP ---
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
[2016-02-15] MEDS ORDERED: ATORVASTATIN 10 MG TAB PO SCH (21:00)
--- NOTE | 2016-02-16 14:17 | EDDOCDS ---
Physician Documentation [facility] Name: Rocky Lazo Age: 70 yrs Sex: Male : 1945 Arrival Date: 02/14/2016 Time: 08:35 Bed 1 Private MD: Jalil Griffith Disposition: 02/14/16 10:38 Hospitalization ordered by Carine Tracy for Inpatient Admission. Preliminary diagnosis are Chest pain, unspecified, Bradycardia, unspecified. - Bed requested for PCU. - Status is Inpatient Admission. jmk - Condition is Stable. - Problem is new. - Symptoms are unchanged. Historical: - Allergies: PCN; - Home Meds: 1. aspirin 81 mg Oral chew 1 tab once daily (Last dose: 02/14/2016 07:00) 2. breo 100/25mcg 1 puff daily (Last dose: 02/14/2016 07:00) 3. Calcium + Vitamin D 600 mg calcium- 200 unit Oral tab twice a day (Last dose: 02/14/2016 07:00) 4. Lipitor 10 mg Oral tab 1 tab once daily (Last dose: 02/14/2016 07:00) 5. losartan 100 mg oral tab 1 tab once daily (Last dose: 02/14/2016 07:00) 6. magnesium oxide 400 mg Oral tab 800 mg twice a day (Last dose: 02/14/2016 07:00) 7. multivitamin Oral tab 1 tab daily (Last dose: 02/14/2016 07:00) 8. Nitrostat 0.4 mg SL subl 1 tab every 5 minutes as needed (Last dose: Unknown) 9. omeprazole 20 mg Oral cpDR 1 cap 2 times per day (Last dose: 02/14/2016 07:00) 10. oxymetazoline 0.05 % nasal spry 1 sprays as needed (Last dose: 02/14/2016 07:00) 11. spironolactone 50 mg Oral tab 1 tab once daily (Last dose: 02/14/2016 07:00) 12. torsemide 5 mg oral tab 1 tab once daily (Last dose: 02/14/2016 07:00) 13. tylenol ES 500 mg as needed as needed (Last dose: Unknown) 14. Ventolin HFA 90 mcg/actuation Nebulizer HFAA 2 puffs every 4 hours as needed (Last dose: 02/14/2016 07:00) 15. Zyrtec 10 mg Oral tab 1 tab once daily (Last dose: 02/14/2016 07:00) - PMHx: Atrial Fib; CHF; COPD; GERD; Hypercholesterolemia; Hypertension; - PSHx: cardiac cath; right testicle; right shoulder; Cardiac Ablation; - Social history: Smoking status: Patient states former smoker of tobacco. No barriers to communication noted, Speaks appropriately for age. - Family history: Not pertinent. - : The pt / caregiver states he / she is not on anticoagulants. Home medication list is obtained from the patient. - Exposure Risk Screening:: None identified. Vital Signs: 02/13 08:39 BP 135 / 79 (auto/); ml6 08:39 Pulse 82 MON; Resp 18; Pulse Ox 98% on R/A; Pain 2/10; ml6 08:53 Weight 108.86 kg / 240 lbs (R); Height 5 ft. 7 in. (170.18 cm) (R); ml6 09:30 BP 149 / 77 (auto/); jmk 09:30 Pulse 64 MON; Pulse Ox 94% ; jmk 09:43 Temp 98.7; Weight 108.18 kg / 238.5 lbs; jrd 09:44 Pulse 63 MON; Pulse Ox 95% ; jmk 09:45 BP 163 / 74 (auto/); jmk 09:59 Pulse 65 MON; Pulse Ox 95% ; jmk 10:00 BP 143 / 68 (auto/); jmk 10:14 Pulse 61 MON; Pulse Ox 95% ; jmk 10:15 BP 137 / 74 (auto/); jmk 10:29 Pulse 64 MON; Pulse Ox 96% ; jmk 10:30 BP 187 / 92 (auto/); jmk 10:44 Pulse 66 MON; Pulse Ox 96% ; jmk 10:45 BP 176 / 100 (auto/); jmk 10:59 Pulse 71 MON; Pulse Ox 96% ; jmk 11:00 BP 165 / 83 (auto/); jmk 11:15 BP 160 / 90 (auto/); jmk 11:15 Pulse 65 MON; Pulse Ox 95% ; jmk 13:12 BP 158 / 87; Pulse 66; Resp 18; Temp 98.7(TE); Pulse Ox 96% ; Pain 0/10; jmk 09:43 Body Mass Index 37.35 (108.18 kg, 170.18 cm) jrd MDM: 08:40 ECG WITH READING ER PHYS+CARDIAG ordered. EDMS 08:52 Salesperson Hosiery/Pulse Ox/q 30 min VS ordered. br1 08:52 IV Saline Lock ordered. br1 08:52 Rhythm Strip to chart ordered. br1 08:52 Undress patient appropriately for examination ordered. br1 08:53 Basic Metabolic Profile Ordered. EDMS 08:53 CBC with Diff Ordered. EDMS 08:53 Cardiac Injury Profile Ordered. EDMS 08:53 Troponin Ordered. EDMS 08:54 portable chest Ordered. EDMS 09:28 Oral Temp ordered. br1 09:28 Aspirin 324 mg PO once ordered. br1 09:28 Nitrostat 0.4 mg Sublingual once ordered. br1 10:01 Financial registration complete. mm15 10:02 [facility] Payment Agreement was scanned into [employer] and attached to record. mm15 10:18 Basic Metabolic Profile Reviewed. br1 10:18 CBC with Diff Reviewed. br1 10:18 Cardiac Injury Profile Reviewed. br1 10:18 Troponin Reviewed. br1 10:24 BED REQUEST+ADM ordered. EDMS 11:01 CARDIAC INJURY PROFILE Ordered. EDMS 11:01 CARDIAC INJURY PROFILE Ordered. EDMS 11:03 Admission / Observation Status ordered. EDMS 11:03 2 GRAM SODIUM DIET ordered. EDMS 02/14 09:53 T-Sheet-- Draft Copy was scanned into [employer] and attached to record. gb Administered Medications: 02/13 09:41 Drug: Aspirin 324 mg [aspirin 81 mg chewable tablet (4 tabs)] Route: PO; jmk 09:52 Not Given (presently without pain): Nitrostat 0.4 mg Sublingual once barney Signatures: Dispatcher [employer] EDMS Ann-Marie Reyez, Waste Transportation Technician Unit lbd William Macdonald RN RN brendak Prema Baez, Reg Reg gb Leonid Garsia MD MD br1 Lenny Faria, RN RN ml6 Mary Aparicio mm15 The chart was reviewed and I authenticate all verbal orders and agree with the evaluation and treatment provided.Attachments: 10:02 [facility] Payment Agreement mm15 02/14 09:53 T-Sheet-- Draft Copy gb Chart Complete MTDD
--- NOTE | 2016-02-16 14:17 | EDDOCDS ---
Physician Documentation [facility] Name: Rocky Lazo Age: 70 yrs Sex: Male : 1945 Arrival Date: 02/14/2016 Time: 08:35 Bed 1 Private MD: Jalil Griffith Disposition: 02/14/16 10:38 Hospitalization ordered by Carine Tracy for Inpatient Admission. Preliminary diagnosis are Chest pain, unspecified, Bradycardia, unspecified. - Bed requested for PCU. - Status is Inpatient Admission. jmk - Condition is Stable. - Problem is new. - Symptoms are unchanged. Historical: - Allergies: PCN; - Home Meds: 1. aspirin 81 mg Oral chew 1 tab once daily (Last dose: 02/14/2016 07:00) 2. breo 100/25mcg 1 puff daily (Last dose: 02/14/2016 07:00) 3. Calcium + Vitamin D 600 mg calcium- 200 unit Oral tab twice a day (Last dose: 02/14/2016 07:00) 4. Lipitor 10 mg Oral tab 1 tab once daily (Last dose: 02/14/2016 07:00) 5. losartan 100 mg oral tab 1 tab once daily (Last dose: 02/14/2016 07:00) 6. magnesium oxide 400 mg Oral tab 800 mg twice a day (Last dose: 02/14/2016 07:00) 7. multivitamin Oral tab 1 tab daily (Last dose: 02/14/2016 07:00) 8. Nitrostat 0.4 mg SL subl 1 tab every 5 minutes as needed (Last dose: Unknown) 9. omeprazole 20 mg Oral cpDR 1 cap 2 times per day (Last dose: 02/14/2016 07:00) 10. oxymetazoline 0.05 % nasal spry 1 sprays as needed (Last dose: 02/14/2016 07:00) 11. spironolactone 50 mg Oral tab 1 tab once daily (Last dose: 02/14/2016 07:00) 12. torsemide 5 mg oral tab 1 tab once daily (Last dose: 02/14/2016 07:00) 13. tylenol ES 500 mg as needed as needed (Last dose: Unknown) 14. Ventolin HFA 90 mcg/actuation Nebulizer HFAA 2 puffs every 4 hours as needed (Last dose: 02/14/2016 07:00) 15. Zyrtec 10 mg Oral tab 1 tab once daily (Last dose: 02/14/2016 07:00) - PMHx: Atrial Fib; CHF; COPD; GERD; Hypercholesterolemia; Hypertension; - PSHx: cardiac cath; right testicle; right shoulder; Cardiac Ablation; - Social history: Smoking status: Patient states former smoker of tobacco. No barriers to communication noted, Speaks appropriately for age. - Family history: Not pertinent. - : The pt / caregiver states he / she is not on anticoagulants. Home medication list is obtained from the patient. - Exposure Risk Screening:: None identified. Vital Signs: 02/13 08:39 BP 135 / 79 (auto/); ml6 08:39 Pulse 82 MON; Resp 18; Pulse Ox 98% on R/A; Pain 2/10; ml6 08:53 Weight 108.86 kg / 240 lbs (R); Height 5 ft. 7 in. (170.18 cm) (R); ml6 09:30 BP 149 / 77 (auto/); jmk 09:30 Pulse 64 MON; Pulse Ox 94% ; jmk 09:43 Temp 98.7; Weight 108.18 kg / 238.5 lbs; jrd 09:44 Pulse 63 MON; Pulse Ox 95% ; jmk 09:45 BP 163 / 74 (auto/); jmk 09:59 Pulse 65 MON; Pulse Ox 95% ; jmk 10:00 BP 143 / 68 (auto/); jmk 10:14 Pulse 61 MON; Pulse Ox 95% ; jmk 10:15 BP 137 / 74 (auto/); jmk 10:29 Pulse 64 MON; Pulse Ox 96% ; jmk 10:30 BP 187 / 92 (auto/); jmk 10:44 Pulse 66 MON; Pulse Ox 96% ; jmk 10:45 BP 176 / 100 (auto/); jmk 10:59 Pulse 71 MON; Pulse Ox 96% ; jmk 11:00 BP 165 / 83 (auto/); jmk 11:15 BP 160 / 90 (auto/); jmk 11:15 Pulse 65 MON; Pulse Ox 95% ; jmk 13:12 BP 158 / 87; Pulse 66; Resp 18; Temp 98.7(TE); Pulse Ox 96% ; Pain 0/10; jmk 09:43 Body Mass Index 37.35 (108.18 kg, 170.18 cm) jrd MDM: 08:40 ECG WITH READING ER PHYS+CARDIAG ordered. EDMS 08:52 Sign Artist/Pulse Ox/q 30 min VS ordered. br1 08:52 IV Saline Lock ordered. br1 08:52 Rhythm Strip to chart ordered. br1 08:52 Undress patient appropriately for examination ordered. br1 08:53 Basic Metabolic Profile Ordered. EDMS 08:53 CBC with Diff Ordered. EDMS 08:53 Cardiac Injury Profile Ordered. EDMS 08:53 Troponin Ordered. EDMS 08:54 portable chest Ordered. EDMS 09:28 Oral Temp ordered. br1 09:28 Aspirin 324 mg PO once ordered. br1 09:28 Nitrostat 0.4 mg Sublingual once ordered. br1 10:01 Financial registration complete. mm15 10:02 [facility] Payment Agreement was scanned into [employer] and attached to record. mm15 10:18 Basic Metabolic Profile Reviewed. br1 10:18 CBC with Diff Reviewed. br1 10:18 Cardiac Injury Profile Reviewed. br1 10:18 Troponin Reviewed. br1 10:24 BED REQUEST+ADM ordered. EDMS 11:01 CARDIAC INJURY PROFILE Ordered. EDMS 11:01 CARDIAC INJURY PROFILE Ordered. EDMS 11:03 Admission / Observation Status ordered. EDMS 11:03 2 GRAM SODIUM DIET ordered. EDMS 02/14 09:53 T-Sheet-- Draft Copy was scanned into [employer] and attached to record. gb Administered Medications: 02/13 09:41 Drug: Aspirin 324 mg [aspirin 81 mg chewable tablet (4 tabs)] Route: PO; jmk 09:52 Not Given (presently without pain): Nitrostat 0.4 mg Sublingual once barney Signatures: Dispatcher [employer] EDMS Ann-Marie Reyez, [employer] Firer/Fireman Unit lbd William Macdonald RN RN brendak Prema Baez, Reg Reg gb Leonid Garsia MD MD br1 Lenny Faria, RN RN ml6 Mary Aparicio mm15 The chart was reviewed and I authenticate all verbal orders and agree with the evaluation and treatment provided.Attachments: 10:02 [facility] Payment Agreement mm15 02/14 09:53 T-Sheet-- Draft Copy gb Chart Complete MTDD
--- NOTE | 2016-02-16 14:18 | EDDOCDS ---
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 Adult Sepsis Screening: The patient does not have new or worsening altered mentation. Patient's respiratory rate is less than 22. Systolic blood pressure is greater than 100. Patient has a qSOFA score of 0- Negative Sepsis Screen. Suicide/Homicide risk assessment- the patient denies having any suicidal and/or homicidal ideations and does not present with any other emotional, behavioral or mental health complaints. Status: Patient is not a food and beverage service manager or dependent. Transition of care: patient was not received from another setting of care. 08:37 Acuity: JACINTO Level 2 ml6 08:37 Method Of Arrival: Walkin/Carried/Asstd ml6 08:37 Red Flag criteria, patient assessed and taken directly to a bed. ml6 Triage Assessment: 08:37 General: Appears in no apparent distress, Behavior is appropriate for age, cooperative. ml6 Pain: Location: chest Pain currently is 2 out of 10 on a pain scale. Pain does not radiate. Quality of pain is described as pressure, Pain began 1 hour ago Is continuous Alleviated by Aggravated by increased activity. The patient is triaged at the bedside. See Assessment in Nurses Notes section of ED record. Neurological: No deficits noted. Level of Consciousness is awake, alert, Oriented to person, place, time. Cardiovascular: No deficits noted. Capillary refill < 3 seconds is brisk in bilateral fingers toes Heart tones S1 S2 present. Cardiovascular: Edema is absent. Pulses are all present. Rhythm is irregular Chest pain is described as vague, quality is pressure, is located in substernal area radiates Does not radiate. episodes are continuous. Respiratory: No deficits noted. Airway is patent Respiratory effort is even, unlabored, Respiratory pattern is regular, symmetrical, Breath sounds are clear bilaterally. GI: No deficits noted. Historical: - Allergies: PCN; - Home Meds: 1. aspirin 81 mg Oral chew 1 tab once daily (Last dose: 02/14/2016 07:00) 2. breo 100/25mcg 1 puff daily (Last dose: 02/14/2016 07:00) 3. Calcium + Vitamin D 600 mg calcium- 200 unit Oral tab twice a day (Last dose: 02/14/2016 07:00) 4. Lipitor 10 mg Oral tab 1 tab once daily (Last dose: 02/14/2016 07:00) 5. losartan 100 mg oral tab 1 tab once daily (Last dose: 02/14/2016 07:00) 6. magnesium oxide 400 mg Oral tab 800 mg twice a day (Last dose: 02/14/2016 07:00) 7. multivitamin Oral tab 1 tab daily (Last dose: 02/14/2016 07:00) 8. Nitrostat 0.4 mg SL subl 1 tab every 5 minutes as needed (Last dose: Unknown) 9. omeprazole 20 mg Oral cpDR 1 cap 2 times per day (Last dose: 02/14/2016 07:00) 10. oxymetazoline 0.05 % nasal spry 1 sprays as needed (Last dose: 02/14/2016 07:00) 11. spironolactone 50 mg Oral tab 1 tab once daily (Last dose: 02/14/2016 07:00) 12. torsemide 5 mg oral tab 1 tab once daily (Last dose: 02/14/2016 07:00) 13. tylenol ES 500 mg as needed as needed (Last dose: Unknown) 14. Ventolin HFA 90 mcg/actuation Nebulizer HFAA 2 puffs every 4 hours as needed (Last dose: 02/14/2016 07:00) 15. Zyrtec 10 mg Oral tab 1 tab once daily (Last dose: 02/14/2016 07:00) - PMHx: Atrial Fib; CHF; COPD; GERD; Hypercholesterolemia; Hypertension; - PSHx: cardiac cath; right testicle; right shoulder; Cardiac Ablation; - Social history: Smoking status: Patient states former smoker of tobacco. No barriers to communication noted, Speaks appropriately for age. - Family history: Not pertinent. - : The pt / caregiver states he / she is not on anticoagulants. Home medication list is obtained from the patient. - Exposure Risk Screening:: None identified. Screenin:00 Screening information is obtained from the patient. Fall risk: No risks identified. jmk Assistance ADL's: requires no assistance with activities of daily living. Abuse/DV Screen: The patient / caregiver reports he/she is: not in a situation that causes fear, pain or injury. Nutritional screening: No deficits noted. Advance Directives: Currently, there is no health care proxy. There is an active DNR order but there is no copy available at this time. There is no living will. There is no Power of National Insurance Officer. Advance directive information has not previously been placed in an [facility] medical record. home support is adequate. Assessment: 08:57 General: Appears in no apparent distress. Neurological: Level of Consciousness is jmk awake, alert, Oriented to person, place, time, Reports headache pain about forehead that is not reproduced with palpation of facial sinuses. Cardiovascular: Capillary refill < 3 seconds Clubbing of nail beds is absent JVD is absent Heart tones S1 S2 present Edema is absent. Rhythm is sinus rhythm with unifocal PVCs. Respiratory: Airway is patent Respiratory effort is even, unlabored, Breath sounds are clear bilaterally. GI: Abdomen is non- distended obese, Bowel sounds present X 4 quads. Abd is soft and non tender. 09:41 General: Appears states head pain has decreased to 2/10. without chest discomfort jmk presently. states pain has been intermittent and seconds duration. monitor is continuing as sr with unifocal PVCs. provider aware. 10:44 General: Appears hospitalist at side.. overall unchanged. jmk 11:23 General: Appears without chest pain presently. Monitor continues as sr with PVCS, jmk unifocal. states head pain has also resolved and states it is intermittent in nature and not necessarily present with presence of chest pain. 13:13 General: Appears presenytly without pain or headache. Monitor is sr with unifocal PVCs. [facility] diet has been provided and taken well,. SL intact. admitted. Vital Signs: 08:39 BP 135 / 79 (auto/); ml6 08:39 Pulse 82 MON; Resp 18; Pulse Ox 98% on R/A; Pain 2/10; ml6 08:53 Weight 108.86 kg (R); Height 5 ft. 7 in. (170.18 cm) (R); ml6 09:30 BP 149 / 77 (auto/); jmk 09:30 Pulse 64 MON; Pulse Ox 94% ; jmk 09:43 Temp 98.7; Weight 108.18 kg; jrd 09:44 Pulse 63 MON; Pulse Ox 95% ; jmk 09:45 BP 163 / 74 (auto/); jmk 09:59 Pulse 65 MON; Pulse Ox 95% ; jmk 10:00 BP 143 / 68 (auto/); jmk 10:14 Pulse 61 MON; Pulse Ox 95% ; jmk 10:15 BP 137 / 74 (auto/); jmk 10:29 Pulse 64 MON; Pulse Ox 96% ; jmk 10:30 BP 187 / 92 (auto/); jmk 10:44 Pulse 66 MON; Pulse Ox 96% ; jmk 10:45 BP 176 / 100 (auto/); jmk 10:59 Pulse 71 MON; Pulse Ox 96% ; jmk 11:00 BP 165 / 83 (auto/); jmk 11:15 BP 160 / 90 (auto/); jmk 11:15 Pulse 65 MON; Pulse Ox 95% ; jmk 13:12 BP 158 / 87; Pulse 66; Resp 18; Temp 98.7(TE); Pulse Ox 96% ; Pain 0/10; jmk 09:43 Body Mass Index 37.35 (108.18 kg, 170.18 cm) [facility] Vitals: 08:48 Log In Time: February 14, 2016 at 08:36. ml6 ED Course: 08:36 Patient visited by Mary Aparicio. mm15 08:36 Patient moved to Waiting mm15 08:37 Jalil Griffith is Private Physician. mm15 08:39 Patient moved to 1 mm15 08:46 EKG done. (by ED staff). Reviewed by Leonid Garsia MD. jrd 08:47 Patient visited by Tien Chavis PCA. jrd 08:48 Triage Initiated ml6 08:52 Leonid Garsia MD is Attending Physician. br1 09:00 The patient / caregiver is instructed regarding the plan of care and ED course. jmk 09:00 Inserted saline lock: 20 gauge in right antecubital area. jmk 09:01 Basic Metabolic Profile Sent. jmk 09:01 CBC with Diff Sent. jmk 09:01 Cardiac Injury Profile Sent. jmk 09:01 Troponin Sent. jmk 09:27 Patient visited by Leonid Garsia MD. br1 10:02 [facility] Payment Agreement was scanned into [employer] and attached to record. mm15 10:20 Patient visited by Leonid Garsia MD. br1 10:34 portable chest Returned. EDMS 10:37 Carine Tracy is Hospitalizing Provider. br1 02/14 09:53 T-Sheet-- Draft Copy was scanned into [employer] and attached to record. gb Administered Medications: 02/13 09:41 Drug: Aspirin 324 mg [aspirin 81 mg chewable tablet (4 tabs)] Route: PO; jmk 09:52 Not Given (presently without pain): Nitrostat 0.4 mg Sublingual once jmk Intake: 13:13 PO: 260.00ml; Total: 260.00ml. jmk Output: 13:13 Urine: 600.00ml; Total: 600.00ml. jmk Order Results: Lab Order: Basic Metabolic Profile; SPEC'M 02/14/16 08:51 Test: GLUCOSE, FASTING; Value: 128; Range: 80-110; Abnormal: Above high normal; Units: MG/DL; Status: F Test: BLOOD UREA NITROGEN; Value: 16; Range: 7-18; Units: MG/DL; Status: F Test: CREATININE FOR GFR; Value: 1.11; Range: 0.70-1.30; Units: MG/DL; Status: F Test: GLOMERULAR FILTRATION RATE; Value: > 60.0; Range: >49; Status: F Test: SODIUM LEVEL; Value: 142; Range: 136-145; Units: MEQ/L; Status: F Test: POTASSIUM SERUM; Value: 4.0; Range: 3.5-5.1; Units: MEQ/L; Status: F Test: CHLORIDE LEVEL; Value: 106; Range: 98-107; Units: MEQ/L; Status: F Test: CARBON DIOXIDE LEVEL; Value: 30; Range: 21-32; Units: MEQ/L; Status: F Test: ANION GAP; Value: 6; Range: 8-16; Abnormal: Below low normal; Units: MEQ/L; Status: F Test: CALCIUM LEVEL; Value: 9.1; Range: 8.8-10.2; Units: MG/DL; Status: F Test Note: ; Units are mL/min/1.73 m2 Chronic Kidney Disease Staging per NKF: Stage I & II GFR >=60 Normal to Mildly Decreased Stage III GFR 30-59 Moderately Decreased Stage IV GFR 15-29 Severely Decreased Stage V GFR <15 Very Little GFR Left ESRD GFR <15 on GOVERNMENT PROPERTY INSPECTOR Lab Order: CBC with Diff; CORINNE'Gisselle 02/14/16 08:51 Test: WHITE BLOOD COUNT; Value: 7.4; Range: 4.0-10.0; Units: K/mm3; Status: F Test: RED BLOOD COUNT; Value: 4.71; Range: 4.30-6.10; Units: M/mm3; Status: F Test: HEMOGLOBIN; Value: 15.1; Range: 14.0-18.0; Units: g/dl; Status: F Test: HEMATOCRIT; Value: 44.1; Range: 42.0-52.0; Units: %; Status: F Test: MEAN CORPUSCULAR VOLUME; Value: 93.6; Range: 80.0-96.0; Units: fl; Status: F Test: MEAN CORPUSCULAR HEMOGLOBIN; Value: 32.0; Range: 27.0-33.0; Units: pg; Status: F Test: MEAN CORPUSCULAR HGB CONC; Value: 34.1; Range: 32.0-36.5; Units: g/dl; Status: F Test: RED CELL DISTRIBUTION WIDTH; Value: 11.9; Range: 11.5-14.5; Units: %; Status: F Test: PLATELET COUNT, AUTOMATED; Value: 184; Range: 150-450; Units: k/mm3; Status: F Test: NEUTROPHILS %; Value: 61.1; Range: 36.0-66.0; Units: %; Status: F Test: LYMPH %; Value: 27.0; Range: 24.0-44.0; Units: %; Status: F Test: MONO %; Value: 5.3; Range: 0.0-5.0; Abnormal: Above high normal; Units: %; Status: F Test: EOS %; Value: 2.6; Range: 0.0-3.0; Units: %; Status: F Test: BASO %; Value: 0.6; Range: 0.0-1.0; Units: %; Status: F Test: LARGE UNSTAINED CELL %; Value: 3.4; Range: 0.0-4.0; Units: %; Status: F Test: NEUTROPHILS #; Value: 4.5; Range: 1.8-7.7; Units: K/mm3; Status: F Test: LYMPH #; Value: 2.0; Range: 1.5-4.5; Units: K/mm3; Status: F Test: MONO #; Value: 0.4; Range: 0.0-0.8; Units: K/mm3; Status: F Test: EOS #; Value: 0.2; Range: 0.0-0.50; Units: K/mm3; Status: F Test: BASO #; Value: 0.0; Range: 0.0-0.2; Units: K/mm3; Status: F Test: LARGE UNSTAINED CELL #; Value: 0.3; Range: 0.0-0.4; Units: K/mm3; Status: F Lab Order: Cardiac Injury Profile; [facility]' 02/14/16 08:51 Test: CPK CREATINE PHOSPHOKINASE; Value: 86; Range: 39-308; Units: U/L; Status: F Test: CK-MB VALUE MASS; Value: 1.0; Range: 0.0-3.6; Units: NG/ML; Status: F Test: MB/CK RELATIVE INDEX; Value: 1.16; Range: < OR =4; Status: F Test Note: ; DIAGNOSIS CRITERIA MMB ng/ml Relative Index (RI) NON-AMI < or = 5 N/A BERTRAND ZONE > 5 < or = 4 AMI > 5 > 4 Lab Order: Troponin; [facility]' 02/14/16 08:51 Test: TROPONIN I; Value: 0.02; Range: < 0.10; Units: NG/ML; Status: F Test Note: ; Troponin I Reference Interval for [employer] LOCI: 99th Percentile= 0.00-0.045 ng/ml Risk Stratification: <= 0.10 ng/ml Decreased Risk for Adverse Clinical Events. 0.10-1.50 ng/ml Increased Risk for Adverse Clinical Events. Evaluation of additional criterion and/or repeat testing in 2-6 hours is suggested to rule out myocardial damage. >= 1.50 ng/ml Indicative of Myocardial Injury. Lab Order: CARDIAC INJURY PROFILE; SPEC' 02/14/16 11:55 Test: CPK CREATINE PHOSPHOKINASE; Value: 81; Range: 39-308; Units: U/L; Status: F Test: CK-MB VALUE MASS; Value: 1.2; Range: 0.0-3.6; Units: NG/ML; Status: F Test: MB/CK RELATIVE INDEX; Value: 1.48; Range: < OR =4; Status: F Test Note: ; DIAGNOSIS CRITERIA MMB ng/ml Relative Index (RI) NON-AMI < or = 5 N/A BERTRAND ZONE > 5 < or = 4 AMI > 5 > 4 Radiology Order: portable chest Test: portable chest REASON FOR EXAMINATION: Chest Pain; SINGLE VIEW CHEST:; ; AP portable view of the chest is performed. Comparison 02/11/2016. There is; mild cardiomegaly. There is no acute infiltrate. Mediastinal silhouette is; unchanged.; ; IMPRESSION:; Mild cardiomegaly. No acute infiltrate.; ; Unreviewed; Outcome: 10:38 Decision to Hospitalize by Provider. brDejuan 11:48 Admission hand-off: Report Faxed Fax receipt verified by cemetery [email or web address]. barney 13:15 Discharge Assessment: Patient awake, alert and oriented x 3. No cognitive and/or k functional deficits noted. Patient verbalized understanding of disposition instructions. patient administered narcotics - no. The following High Risk Discharge criteria are identified: None. Admitted to PCU accompanied by nurse, via stretcher, on monitor. Condition: good. No special radiology studies were completed. Property :Personal belongings accompany Pt. 13:16 Patient left the ED. [facility] Signatures: Dispatcher [employer] EDMS William Macdonald,RN RN brendak Prema Baez, Reg Reg Leonid Mackay MD MD br1 Lenny Faria, RN RN ml6 Mary Aparicio mm15 Tien Chavis PCA STENCIL MAKER jrd Chart Complete MTDD
--- NOTE | 2016-03-03 22:21 | DSES ---
DATE OF ADMISSION: 02/14/2016 DATE OF DISCHARGE: 02/15/2016 REASON FOR ADMISSION: Headache, bradycardia. PRIMARY CARE PROVIDER: Dr. Griffith CONSULTATION DURING ADMISSION: Dr. Ellis FINAL DIAGNOSES: 1. Headache likely secondary to Afrin. 2. Premature ventricular contractions (PVCs). 3. Chest pain. 4. Hypertension. 5. Hyperlipidemia. 6. History of atrial fibrillation. 7. Hypertensive heart disease. 8. History of congestive heart failure. HISTORY OF PRESENT ILLNESS: The patient is a 70-year-old male, presented to the emergency room complaining of some mild chest pain and a headache. He said headache has worsened over the past few days after he was diagnosed with a sinus infection and was prescribed Afrin, which he has been taking regularly. In the emergency room, the patient was found to have mild chest pain. First set of troponin negative. He was admitted for cardiac rule out. HOSPITAL COURSE: The patient was admitted to telemetry. Dr. Ellis, whom he sees outpatient, was consulted. He saw the patient and reviewed his outpatient records, including a recent Holter monitor and echocardiogram. As for his PVCs, the patient had had these for a long time and his bradycardia had resolved after admission, his headache has also resolved. He was instructed not to take Afrin after discharge since it will increase his blood pressure and result in a headache. The patient remained in the hospital until the cardiac enzymes were ordered and all of which were negative. The following day, the patient was discharged home to follow up with primary care provider and preventive maintenance coordinator outpatient. Diet: Low-sodium, fluid restriction diet. Activities as tolerated. Discharge medications include Tylenol 500 mg by mouth daily, Ventolin inhaled as needed for shortness of breath, aspirin 81 mg by mouth daily, atorvastatin 10 mg every 2 days, cetirizine 10 mg at bedtime, losartan 100 mg at bedtime, magnesium oxide 400 mg twice a day, torsemide 5 mg in the morning, spironolactone 50 mg in the morning, omeprazole 20 mg by mouth twice a day, Breo inhaled. Discharge condition was stable.
== END 2016-02-15 11:31 | disposition home or self-care (01) | DRG 103 ==
LOC: M ED 08:35 → M ED INP 10:59 → M PCU 13:20
PROVIDERS: ADMIT Internal Medicine; ATTEND Internal Medicine
DX: R51 Headache (principal); E66.9 Obesity, unspecified; I11.9 Hypertensive heart disease without heart failure; I49.3 Ventricular premature depolarization; J44.9 Chronic obstructive pulmonary disease, unspecified; I48.91 Unspecified atrial fibrillation; E78.5 Hyperlipidemia, unspecified; Z87.891 Personal history of nicotine dependence; Z88.0 Allergy status to penicillin; Z79.899 Other long term (current) drug therapy; Z79.82 Long term (current) use of aspirin; R07.2 Precordial pain; T48.5X5A Adverse effect of other anti-common-cold drugs, initial encounter; K21.9 Gastro-esophageal reflux disease without esophagitis; I87.2 Venous insufficiency (chronic) (peripheral)

== ENCOUNTER 2016-03-24 22:46 | Emergency (ER) | payer MEDICARE ==
[~2016-03-24 22:46] MED LIST changes: +ASPI81TA7 PO
--- NOTE | 2016-03-25 09:00 | ECGEPIP ---
Stationary ECG Study [facility] - ED Test Date: 2016-03-24 Pat Name: CAREY AKERS Department: Room: - Gender: M Pole [employer]: [facility] : 1945 Requested By: SURESH Hartmann PA-C Order Number: [id number] Reading MD: Noé Escobar Measurements Intervals [place] Rate: 75 P: 61 DC: 141 QRS: 35 QRSD: 112 T: 29 QT: 395 QTc: 443 Interpretive Statements SINUS RHYTHM WITH OCCASIONAL MULTIFOCAL VENTRICULAR PREMATURE COMPLEXES SIMILAR TO 02/15/16 Electronically Signed On 03-25-2016 8:59:48 EST by Noé Escobar
== END 2016-03-25 00:18 | disposition left against medical advice (07) ==
LOC: M ED 22:46
DX: R06.02 Shortness of breath (principal); I10 Essential (primary) hypertension; J44.9 Chronic obstructive pulmonary disease, unspecified; I50.9 Heart failure, unspecified; E78.00 Pure hypercholesterolemia, unspecified; I48.91 Unspecified atrial fibrillation; K21.9 Gastro-esophageal reflux disease without esophagitis; Z79.899 Other long term (current) drug therapy; Z79.82 Long term (current) use of aspirin; Z79.51 Long term (current) use of inhaled steroids; Z88.0 Allergy status to penicillin

== ENCOUNTER 2016-11-06 22:45 | Observation (INO) | payer MEDICARE ==
[~2016-11-06] VITALS: Ht 170.2 cm; Wt 108.4 kg
[~2016-11-06 22:45] MED LIST changes: +ASPI1TAB15 PO; -ASPI81TA7 PO; -COUM2.5T11 PO; +COUM2.5T17 PO
[2016-11-06] MEDS ORDERED: ASPIRIN 81 MG CHEW TABLET PO ONE (23:15)
[2016-11-06 23:22] LABS: BASO # 0.1 10^3/uL (0.0-0.2); BASO % 0.6 % (0.0-1.0); EOS # 0.3 10^3/uL (0.0-0.50); EOS % 2.7 % (0.0-3.0); IMMATURE GRANULOCYTE % 0.5 % (0-0); LYMPH # 3.6 10^3/uL (1.5-4.5); MEAN CORPUSCULAR HEMOGLOBIN 31.1 pg (27.0-33.0); MEAN CORPUSCULAR HGB CONC 33.6 g/dl (32.0-36.5); MEAN CORPUSCULAR VOLUME 92.5 fl (80.0-96.0); MONO # 1.2 10^3/uL (0.0-0.8); MONO % 11.8 % (0.0-5.0); NEUTROPHILS % 49.4 % (36.0-66.0); PLATELET COUNT, AUTOMATED 230 10^3/uL (150-450); RED CELL DISTRIBUTION WIDTH 12.2 % (11.5-14.5); WHITE BLOOD COUNT 10.2 10^3/uL (4.0-10.0)
[2016-11-06] MEDS: METOPROLOL 5 MG/5 ML VIAL IV SCH ×3 (23:29→23:50)
[2016-11-06 23:32] LABS: INR 1.07
[2016-11-06] MEDS ORDERED: ENOXAPARIN 100MG/1ML SYRINGE (J1650) SC ONE (23:45)
[2016-11-06 23:48] LABS: ALBUMIN 3.5 GM/DL (3.2-5.2); ALBUMIN/GLOBULIN RATIO 0.88 (1.00-1.93); ALKALINE PHOSPHATASE 83 U/L (45-117); ALT/SGPT 32 U/L (12-78); ANION GAP 4 MEQ/L (8-16); AST/SGOT 16 U/L (15-37); BILIRUBIN,DIRECT 0.2 MG/DL (0.0-0.2); BILIRUBIN,TOTAL 0.8 MG/DL (0.2-1.0); BLOOD UREA NITROGEN 16 MG/DL (7-18); CALCIUM LEVEL 8.5 MG/DL (8.8-10.2); CARBON DIOXIDE LEVEL 31 MEQ/L (21-32); CHLORIDE LEVEL 107 MEQ/L (98-107); CREATININE FOR GFR 1.08 MG/DL (0.70-1.30); GLOMERULAR FILTRATION RATE > 60.0 (>42); GLUCOSE, FASTING 121 MG/DL (83-110); SODIUM LEVEL 142 MEQ/L (136-145); TOTAL PROTEIN 7.5 GM/DL (6.4-8.2)
[2016-11-07] VITALS (13 sets, daily range): BP systolic 104–143; BP diastolic 57–92; O2SAT 98
[2016-11-07] MEDS ORDERED: ALBU83IN INH (00:22)
[2016-11-07] MEDS ORDERED: ACETAMINOPHEN TAB 650MG DOSE (2X325MG) PO ONE ×2 (00:45→16:00)
[2016-11-07] MEDS ORDERED: IPRATROPIUM 0.5MG/ALBUTEROL 2.5MG INH SOL UD 3ML (DUONEB)(J7620) NEB PRN (00:45)
[2016-11-07] MEDS ORDERED: ONDANSETRON 4MG/2ML VIAL (J2405) IV PRN (00:45)
[2016-11-07 00:59] LABS: T UPTAKE 34 % (33-40)
--- NOTE | 2016-11-07 02:15 | HPE ---
DATE OF ADMISSION: 11/06/2016 PRIMARY CARE PROVIDER: Jalil Griffith MD. FINANCIAL ANALYST ACCOUNTANT: Dr. Boland. CHIEF COMPLAINT: Chest discomfort, lightheadedness. HISTORY OF PRESENT ILLNESS: This is a 71-year-old male patient with underlying medical history of atrial fibrillation, chronic obstructive pulmonary disease (COPD), questionable history of ablation for atrial fibrillation, gastroesophageal reflux disease (GERD), hypertension, obstructive sleep apnea, prediabetes. Patient presented to the emergency room with since 1:30 yesterday of headache, diffuse, aching with some shortness of breath. Patient also noticed that his heart has been racing with rapid pulse. Reported sudden lightheadedness and intermittent chest discomfort, substernal, pressure like, not really painful lasting for 20 seconds, resolved on its own with no exacerbating or relieving factor and no radiating. Patient stated experienced symptoms similar to this previously. Denies any diaphoresis. Denies any sick contact, coughing, fevers, chills, nausea, vomiting, abdominal pain. Denies any lower extremity swelling. No nausea, vomiting. In the emergency room, patient was found to be in atrial fibrillation with rapid ventricular response of 130s. Given Lopressor with improvement. Per patient, sensation of chest discomfort still comes and goes with persistent headache. Denies any photophobia. Does have history of headache. ALLERGIES: To PENICILLIN. PAST MEDICAL HISTORY: 1. COPD. 2. Atrial fibrillation with questionable history of cardiac ablation. 3. GERD. 4. Hypertension. 5. Dyslipidemia. 6. Prediabetes. 7. Obstructive sleep apnea. PAST SURGICAL HISTORY: 1. Cardiac ablation. 2. Cardiac catheterization that was negative with no stents 2 years ago. 3. Right shoulder surgery. 4. Left testicular surgery. SOCIAL HISTORY: Quit smoking 1991, two pack per day smoking history for many years. Heavy drinker, quit drinking 2004. Lives at home. FAMILY HISTORY: Mother with coronary artery disease. Brother with congestive heart failure (CHF). REVIEW OF SYSTEMS: Reported headache with sensations of shortness of breath, chest discomfort, lightheadedness, palpitations. All other review of systems are negative. HOME MEDICATION: - acetaminophen 500 mg by mouth every 4 hours as needed - albuterol nebulizer treatment every 4 hours as needed - aspirin 81 mg by mouth daily - Lipitor 10 mg by mouth every 2 days - calcium/vitamin D one by mouth twice a day - Zyrtec 10 mg by mouth every morning - Breo inhalation daily - losartan 100 mg by mouth nightly - magnesium oxide 800 mg by mouth twice a day - multivitamin one tablet by mouth daily - sublingual nitroglycerin 0.4 mg sublingually every 5 minutes as needed - omeprazole 20 mg by mouth twice a day - spironolactone 50 mg by mouth every morning - torsemide 5 mg by mouth every morning PHYSICAL EXAMINATION: VITAL SIGNS: Pulse 106, respirations 20, blood pressure 138/110, pulse oximetry 97% on room air. GENERAL: Patient obese, alert and oriented times three in no acute distress. HEENT: Normocephalic, atraumatic. Cranial nerves II-XII grossly intact. CARDIAC: Irregularly irregular around tachycardia. PULMONARY: Bilaterally clear, diminished breath sounds bilateral. ABDOMEN: Obese, soft, nontender. Positive bowel sounds. EXTREMITIES: No clubbing, cyanosis or edema. NEUROLOGIC: No focal deficit. EKG shows atrial fibrillation with ventricular rate of 130s. No ST segment changes. LABORATORY: WBC 10.2, hemoglobin and hematocrit 15/44.6, platelets 230. Chemistry: Sodium 142, potassium 4, chloride 107, bicarbonate 31, BUN 16, creatinine 1.08. Cardiac enzymes negative times one. Chest x-ray no acute consolidation or infiltrate. ASSESSMENT AND PLAN: This is a 71-year-old male patient with underlying medical history of chronic obstructive pulmonary disease (COPD), questionable history of congestive heart failure (CHF), prediabetes, atrial fibrillation with questionable history of ablation, coronary artery disease, hypertension, gastroesophageal reflux disease (GERD), dyslipidemia, obstructive sleep apnea, presented with headache, palpitations, shortness of breath, and chest discomfort. 1. Palpitations, chest discomfort and lightheadedness. Likely secondary to somatic atrial fibrillation with rapid ventricular response. Patient given Lopressor intravenously (IV). Will place the patient on metoprolol 12.5 mg by mouth every 6 hours, adjust as needed. Telemetry monitoring. Serial cardiac enzymes. Patient has a CHADS-VASc 2 score of 3. Will need anticoagulation. Place the patient on Lovenox for now. Will discuss the case with cardiology, Dr. Boland. Monitor blood pressure. Followup thyroid-stimulating hormone (TSH). Echocardiogram. 2. Headache. Patient does have history of migraine headache. Pain medication as prescribed. Will continue to follow. 3. History of coronary artery disease. Continue aspirin, beta blockers, losartan, spironolactone, torsemide. Telemetry monitoring. Followup cardiac enzymes. Will discuss the case with Dr. Boland. 4. Questionable history of CHF. Followup echocardiogram. On spironolactone and torsemide. Strict intake and output (I and O), daily weight. 5. Hypertension. Continue metoprolol, losartan, spironolactone, and torsemide. Followup electrolytes. Followup blood pressure. 6. Dyslipidemia. Outpatient followup. Diet controlled. Patient not on statin at home. 7. COPD. Patient currently not having any wheeze. Continue nebulizer treatment as needed. Continue home medication. 8. GERD. Continue proton pump inhibitor (PPI). 9. Obstructive sleep apnea. Encouraged patient to bring continuous positive airway pressure (CPAP). Obstructive sleep apnea (ANGELA) protocol. 10. Prediabetes. Followup A1c. Monitor glucose. 11. Deep venous thrombosis (DVT) prophylaxis. Patient on Lovenox for atrial fibrillation for now. Will switch to oral agent after discussion with cardiology. DISPOSITION: Pending clinical improvement, further workup, echocardiogram. Will discuss the case with Dr. Boland in the morning.
[2016-11-07 05:36] LABS: MEAN CORPUSCULAR HEMOGLOBIN 30.7 pg (27.0-33.0); MEAN CORPUSCULAR HGB CONC 33.3 g/dl (32.0-36.5); MEAN CORPUSCULAR VOLUME 92.4 fl (80.0-96.0); RED CELL DISTRIBUTION WIDTH 12.2 % (11.5-14.5); WHITE BLOOD COUNT 8.8 10^3/uL (4.0-10.0)
[2016-11-07 05:45] LABS: INR 1.11
[2016-11-07] MEDS ORDERED: METOPROLOL TART 12.5 MG PER 1/2 TAB PO SCH (06:00)
[2016-11-07 06:04] LABS: ANION GAP 6 MEQ/L (8-16); BLOOD UREA NITROGEN 15 MG/DL (7-18); CALCIUM LEVEL 9.3 MG/DL (8.8-10.2); CARBON DIOXIDE LEVEL 30 MEQ/L (21-32); CHLORIDE LEVEL 107 MEQ/L (98-107); CREATININE FOR GFR 0.91 MG/DL (0.70-1.30); GLOMERULAR FILTRATION RATE > 60.0 (>42); GLUCOSE, FASTING 127 MG/DL (83-110); MAGNESIUM LEVEL 2.3 MG/DL (1.8-2.4); POTASSIUM SERUM 4.6 MEQ/L (3.5-5.1); SODIUM LEVEL 143 MEQ/L (136-145)
[2016-11-07] MEDS ORDERED: AMIODARONE HCL 150 MG in APPROPRIATE DILUENT 1 EA IV STA ×2 (06:35→10:28)
--- NOTE | 2016-11-07 06:39 | IPNPDOC ---
Text Note Date of Service The patient was seen on 11/07/16. NOTE dw Dr Boland, Rec Chemical cardioversion with Amiodarone 150mg IVx1 with patient does not convert would give 150mg IV in 20mins, avoid beta apollo give COPD history. IF patietn does not convert with amiodarone consider cardizem. f/ u with Dr Boland for further rec. VS,Fishbone, I+O VS, Fishbone, I+O Laboratory Tests 11/06/16 23:11 Red Blood Count 4.82, Mean Corpuscular Volume 92.5, Mean Corpuscular Hemoglobin 31.1, Mean Corpuscular Hemoglobin Concent 33.6, Red Cell Distribution Width 12.2 , Neutrophils (%) (Auto) 49.4, Lymphocytes (%) (Auto) 35.0, Monocytes (%) (Auto ) 11.8 H, Eosinophils (%) (Auto) 2.7, Basophils (%) (Auto) 0.6, Neutrophils # ( Auto) 5.0, Lymphocytes # (Auto) 3.6, Monocytes # (Auto) 1.2 H, Eosinophils # ( Auto) 0.3, Basophils # (Auto) 0.1 11/07/16 05:15 Red Blood Count 4.98, Mean Corpuscular Volume 92.4, Mean Corpuscular Hemoglobin 30.7, Mean Corpuscular Hemoglobin Concent 33.3, Red Cell Distribution Width 12.2 , Calcium Level 9.3 Vital Signs Date Time Temp Pulse Resp B/P (MAP) Pulse Ox O2 Delivery O2 Flow Rate FiO2 11/07/16 05:32 110 142/80 11/07/16 04:02 97.8 16 96 Room Air 11/07/16 03:19 2.0 OTTONIEL BARR MD Nov 07, 2016 06:39
--- NOTE | 2016-11-07 08:22 | REP ---
Chest one-view HISTORY: Chest pain Comparison: 02/14/2016 The lungs are clear. The cardiac silhouette is enlarged. The pulmonary vasculature is normal in appearance. Impression: Cardiomegaly. Signed by Josue Samson MD 11/07/2016 08:13 A
--- NOTE | 2016-11-07 08:34 | ECGEPIP ---
Stationary ECG Study [facility] - ED Test Date: 2016-11-06 Pat Name: CAREY AKERS Department: Room: [place] [address] Gender: M Med Spec: ScottB: 1945 Requested By: RADHA Nair Order Number: [id number] Reading MD: Noé Escobar Measurements Intervals [place] Rate: 114 P: SD: 0 QRS: 46 QRSD: 109 T: 25 QT: 319 QTc: 441 Interpretive Statements ATRIAL FIBRILLATION WITH RAPID VENTRICULAR RESPONSE MODERATE ST DEPRESSION RHYTHM CHANGE COMPARED TO 03/24/16 Electronically Signed On 11-07-2016 8:34:11 EDT by Noé Escobar
[2016-11-07] MEDS: SENOKOT S TAB PO SCH ×2 (09:46→20:15)
[2016-11-07] MEDS: ASPIRIN 81 MG ENTERIC TAB PO SCH (09:46)
[2016-11-07] MEDS: MULTIVITAMINS/MINERALS THERAP 1 TAB PO SCH (09:46)
[2016-11-07] MEDS: SPIRONOLACTONE 50 MG TAB PO SCH (09:47)
[2016-11-07] MEDS: MAGNESIUM OXIDE 400 MG TAB (MAG-OX) PO SCH ×2 (09:47→20:15)
[2016-11-07] MEDS: OMEPRAZOLE 20 MG CAP PO SCH ×2 (09:47→20:15)
[2016-11-07] MEDS: TORSEMIDE 5MG TABLET PO SCH (09:47)
[2016-11-07] MEDS: CETIRIZINE (ZyrTEC) 10 MG TAB PO SCH (09:48)
[2016-11-07] MEDS: ENOXAPARIN 100MG/1ML SYRINGE (J1650) SC SCH ×2 (10:49→23:40)
--- NOTE | 2016-11-07 15:14 | IPN ---
DATE: 11/07/2016 SUBJECTIVE: Patient seen and examined in the room today. At the time of encounter, the patient still has a heart rate fluctuating between 90-120. There is a large fluctuation of the heart rate continuously. Per the patient, the patient continues to have headache and continues to have palpitations. There was a stat order for amiodarone placed at approximately 6:30, however, the medication was not delivered until hours later. OBJECTIVE: VITAL SIGNS: Temperature 97.9, pulse is 88 to 110, respirations 18, blood pressure 129/78, pulse oximetry is 95% in room air. GENERAL: Morbidly obese, no signs of acute distress. Alert and oriented times three. HEENT: Normocephalic, atraumatic. Extraocular motors grossly intact. CARDIOVASCULAR: Irregularly irregular. Intermittent tachycardic. Positive S1 and S2. LUNGS: Clear to auscultation bilaterally. ABDOMEN: Morbidly obese. Soft, nontender, nondistended. Bowel sounds present. EXTREMITIES: No significant edema. No signs of cyanosis. LABORATORY DATA: WBC 8.8, hemoglobin 15.3, hematocrit 46, platelet count 236, sodium 143, potassium 4.6, chloride 107, carbon dioxide 30, BUN 15, creatinine 0.91, GFR greater than 60, fasting glucose 127, calcium 9.3, magnesium 2.3, total CK is 123, Troponin I 0.02. ASSESSMENT/PLAN: 1. Atrial fibrillation. There was a stat dose of amiodarone placed at around 6:35 a.m., however the medication was not delivered until hours later. During the encounter, the patient still has a heart rate fluctuating between 90-120. I discussed the case with Dr. Boland multiple times. The patient received an urgent dose of amiodarone times one and Cardizem was also initiated at the same time. Approximately an hour late, the patient is still not converting back to sinus rhythm. Another dose of stat amiodarone 150 mg was given. Will continue to monitor on telemetry. A few hours later, the patient's heart rate has shown significant improvement. This patient is known by Dr. Boland. The patient has a history of bradycardia from the metoprolol use. Due to the concurrent COPD, the patient's heart rate medication is switched to Cardizem. At this moment, will try to chemically convert the patient back to sinus rhythm with amiodarone and today the patient will receive two doses of IV amiodarone [address] Boland's recommendation, if the patient is still not converting back to sinus by tomorrow, patient will continue with amiodarone 200 mg by mouth four times a day. Currently the patient is receiving Lovenox for anticoagulation due to increased CHADS-2 score. 2. Headache. Possibly due to migraine verus uncontrolled atrial fibrillation. Continue to follow. 3. History of coronary artery disease on aspirin, beta-apollo and losartan and diuretic. Lactic acid has been stable. 4. Questionable history of CHF. Cardiac echocardiogram has been ordered. At home, the patient has been on diuretic. Continue to monitor input and output. 5. Hypertension. Patient is on metoprolol, losartan, torsemide and spironolactone. Currently will try to chemically convert the patient's atrial fibrillation. Blood pressure is averaging around 120/80. 6. Congestive heart failure (CHF). No exacerbation at this moment. Continue as needed breathing treatments. 7. Obstructive sleep apnea (ANGELA) on CPAP. ANGELA protocol. 8. Prediabetes. On consistent carbohydrate diet. 9. Deep vein thrombosis (DVT) prophylaxis. Patient on Lovenox.
[2016-11-07] MEDS ORDERED: ACETAMINOPHEN TAB 650MG DOSE (2X325MG) PO PRN (16:45)
[2016-11-07] MEDS: PERCOCET 5MG/325MG TAB PO PRN (17:00)
[2016-11-07] MEDS: BREO ELLIPTA INH SCH (17:08)
[2016-11-07] MEDS: LOSARTAN 50 MG TAB PO SCH (20:14)
--- NOTE | 2016-11-07 20:50 | ECGEPIP ---
Stationary ECG Study [facility] Test Date: 2016-11-07 Pat Name: CAREY AKERS Department: Room: [place] [address] Gender: M [employer] Officer: ROSANNA : 1945 Requested By: FRANCISCO J HOWARD Order Number: [id number] Reading MD: Ronald Boland Measurements Intervals [place] Rate: 83 P: IN: 0 QRS: 52 QRSD: 110 T: 38 QT: 356 QTc: 421 Interpretive Statements ATRIAL FIBRILLATION ABNORMAL RHYTHM ECG Decreased heart rate and no PVCs compared with 11/06/2016 at 2300 hours. Electronically Signed On 11-07-2016 20:50:41 EDT by Ronald Boland
[2016-11-07] MEDS ORDERED: ATORVASTATIN 10 MG TAB PO SCH (21:00)
[2016-11-08] VITALS (25 sets, daily range): BP systolic 108–168; BP diastolic 60–119; O2SAT 96–98
[2016-11-08 06:15] LABS: MEAN CORPUSCULAR HGB CONC 33.5 g/dl (32.0-36.5); MEAN CORPUSCULAR VOLUME 92.6 fl (80.0-96.0); RED CELL DISTRIBUTION WIDTH 12.4 % (11.5-14.5); WHITE BLOOD COUNT 9.6 10^3/uL (4.0-10.0)
[2016-11-08 06:18] LABS: INR 1.19
[2016-11-08 08:08] LABS: ANION GAP 6 MEQ/L (8-16); BLOOD UREA NITROGEN 14 MG/DL (7-18); CALCIUM LEVEL 8.6 MG/DL (8.8-10.2); CARBON DIOXIDE LEVEL 29 MEQ/L (21-32); CHLORIDE LEVEL 105 MEQ/L (98-107); GLOMERULAR FILTRATION RATE > 60.0 (>42); GLUCOSE, FASTING 140 MG/DL (83-110); MAGNESIUM LEVEL 2.1 MG/DL (1.8-2.4); POTASSIUM SERUM 4.3 MEQ/L (3.5-5.1); SODIUM LEVEL 140 MEQ/L (136-145)
[2016-11-08] MEDS: MULTIVITAMINS/MINERALS THERAP 1 TAB PO SCH (08:45)
[2016-11-08] MEDS: MAGNESIUM OXIDE 400 MG TAB (MAG-OX) PO SCH ×2 (08:46→20:36)
[2016-11-08] MEDS: AMIODARONE 200 MG TAB (PACERONE) PO SCH ×4 (08:46→20:36)
[2016-11-08] MEDS: SENOKOT S TAB PO SCH ×2 (08:46→20:36)
[2016-11-08] MEDS: OMEPRAZOLE 20 MG CAP PO SCH ×2 (08:46→20:36)
[2016-11-08] MEDS: CETIRIZINE (ZyrTEC) 10 MG TAB PO SCH (08:46)
[2016-11-08] MEDS: TORSEMIDE 5MG TABLET PO SCH (08:47)
[2016-11-08] MEDS: SPIRONOLACTONE 50 MG TAB PO SCH (08:47)
[2016-11-08] MEDS: ASPIRIN 81 MG ENTERIC TAB PO SCH (08:47)
[2016-11-08] MEDS: PERCOCET 5MG/325MG TAB PO PRN ×2 (09:01→13:46)
[2016-11-08] MEDS: ENOXAPARIN 100MG/1ML SYRINGE (J1650) SC SCH ×2 (11:30→22:19)
[2016-11-08] MEDS: BREO ELLIPTA INH SCH (13:32)
--- NOTE | 2016-11-08 19:59 | IPN ---
DATE: 11/08/2016 SUBJECTIVE: The patient is seen and examined in the room today. The patient stated his headache and chest discomfort have resolved. The patient denies any palpitations or chest pain. Denies any shortness of breath. On telemetry, the patient's heart rate is better controlled. However, the patient is still in atrial fibrillation (A-fib). OBJECTIVE: VITAL SIGNS: Temperature is 97.4, pulse is 75, respirations 18, blood pressure 134/96, pulse oximetry 97% on room air. GENERAL: No sign of acute distress. Alert and oriented times three. HEENT: Normocephalic, atraumatic. Extraocular motor grossly intact. CARDIOVASCULAR: Irregularly irregular. Positive S1, S2. Rate in the desired range. LUNGS: Clear to auscultation bilaterally. ABDOMEN: Morbidly obese. Soft, nontender, nondistended. Bowel sounds present. EXTREMITIES: No edema. No sign of cyanosis. LABORATORY DATA: WBC is 9.6, hemoglobin 15.1, hematocrit 45.1, platelet count 228. Sodium is 140, potassium 4.3, chloride 105, carbon dioxide 29, BUN 14, creatinine 1.0, GFR greater than 60, fasting glucose 140, calcium 8.6, magnesium 2.1. ASSESSMENT AND PLAN: 1. Atrial fibrillation. The patient currently is taking Cardizem. The patient is currently on oral amiodarone. Case was discussed with Dr. Boland. Yesterday the patient received two doses of intravenous (IV) amiodarone. However, the patient was still in atrial fibrillation. Rate is better controlled. Per Dr. Boland, will continue to evaluate patient to see if patient will re-convert back to sinus rhythm. If tomorrow the patient is still in atrial fibrillation, the patient will continue on the amiodarone 200 mg by mouth daily, and the patient will be sent home with anticoagulation. 2. Headache, most likely secondary to migraine versus uncontrolled atrial fibrillation, resolved. 3. History of coronary artery disease on aspirin, beta apollo, losartan, and diuretic. 4. Questionable history of congestive heart failure, being followed with echocardiogram. Continue monitoring intake and output. 5. Hypertension, stable. 6. Obstructive sleep apnea (ANGELA), on continuous positive airway pressure (CPAP) and ANGELA protocol. 7. Prediabetes. Continue on consistent carbohydrate diet. 8. Deep venous thrombosis (DVT) prophylaxis on Lovenox.
[2016-11-08] MEDS: LOSARTAN 50 MG TAB PO SCH (20:36)
[2016-11-09 04:00] VITALS: BP 108/56
[2016-11-09 06:12] LABS: MEAN CORPUSCULAR HGB CONC 33.5 g/dl (32.0-36.5); MEAN CORPUSCULAR VOLUME 92.7 fl (80.0-96.0); RED CELL DISTRIBUTION WIDTH 12.5 % (11.5-14.5); WHITE BLOOD COUNT 9.4 10^3/uL (4.0-10.0)
[2016-11-09 06:25] LABS: INR 1.14
[2016-11-09 06:40] LABS: ANION GAP 8 MEQ/L (8-16); BLOOD UREA NITROGEN 14 MG/DL (7-18); CALCIUM LEVEL 8.3 MG/DL (8.8-10.2); CARBON DIOXIDE LEVEL 27 MEQ/L (21-32); CHLORIDE LEVEL 108 MEQ/L (98-107); CREATININE FOR GFR 0.96 MG/DL (0.70-1.30); GLOMERULAR FILTRATION RATE > 60.0 (>42); GLUCOSE, FASTING 121 MG/DL (83-110); MAGNESIUM LEVEL 2.3 MG/DL (1.8-2.4); POTASSIUM SERUM 4.1 MEQ/L (3.5-5.1); SODIUM LEVEL 143 MEQ/L (136-145)
[2016-11-09] MEDS: BREO ELLIPTA INH SCH (07:20)
[2016-11-09 08:00] VITALS: BP 129/82; O2SAT 96
[2016-11-09 09:00] VITALS: O2SAT 97
[2016-11-09] MEDS ORDERED: INFLUENZA VIRUS VACCINE HIGH DOSE 0.5 ML SYRINGE (90662) IM ONE (09:00)
[2016-11-09] MEDS ORDERED: CARD40TA PO (09:12)
[2016-11-09] MEDS ORDERED: AMIO200T PO (09:12)
[2016-11-09] MEDS ORDERED: ELIQ5TAB PO (09:12)
[2016-11-09] MEDS: MULTIVITAMINS/MINERALS THERAP 1 TAB PO SCH (09:13)
[2016-11-09] MEDS: OMEPRAZOLE 20 MG CAP PO SCH (09:13)
[2016-11-09] MEDS: SENOKOT S TAB PO SCH (09:13)
[2016-11-09] MEDS: MAGNESIUM OXIDE 400 MG TAB (MAG-OX) PO SCH (09:13)
[2016-11-09] MEDS: AMIODARONE 200 MG TAB (PACERONE) PO SCH ×2 (09:13→11:31)
[2016-11-09] MEDS: CETIRIZINE (ZyrTEC) 10 MG TAB PO SCH (09:13)
[2016-11-09] MEDS: SPIRONOLACTONE 50 MG TAB PO SCH (09:14)
[2016-11-09] MEDS: TORSEMIDE 5MG TABLET PO SCH (09:14)
[2016-11-09] MEDS: ASPIRIN 81 MG ENTERIC TAB PO SCH (09:14)
[2016-11-09 10:00] VITALS: O2SAT 97
[2016-11-09 11:30] VITALS: BP 147/88
--- NOTE | 2016-11-09 17:42 | DSES ---
DATE OF ADMISSION: 11/06/2016 DATE OF DISCHARGE: 11/09/2016 PRIMARY CARE PROVIDER: Dr. Jalil Griffith CIGAR PACKER AND PICKER: Dr. Boland DISCHARGE DIAGNOSES: 1. Atrial fibrillation. 2. Headache and chest discomfort secondary to atrial fibrillation. 3. History of coronary artery disease. 4. Questionable history of congestive heart failure. 5. Hypertension. 6. Obstructive sleep apnea (ANGELA). 7. Prediabetes. HOSPITAL COURSE: The patient is a 71-year-old male who presented to [facility] on 11/06/2016 with chest discomfort, lightheadedness, and a headache. The patient was found to have symptomatic atrial fibrillation with rapid ventricular response (RVR). The patient received IV Lopressor to achieve the rate control and the patient was started on a therapeutic dose of Lovenox for anticoagulation. The case was discussed with the patient's monotype keyboard operator, Dr. Boland. With better rate control, the patient's symptoms started to improve. The case has been discussed multiple times with Dr. Boland who recommended attempting chemical cardioversion with IV amiodarone on the first day and then the dose was adjusted to oral. However, with several days of amiodarone treatment, the patient still remained in atrial fibrillation and there was no conversion noted. The case was discussed with Dr. Boland again and the patient is discharged with Eliquis for anticoagulation and the patient is recommended to continue with amiodarone. The patient will be reevaluated by Dr. Boland in a few weeks. OBJECTIVE: VITAL SIGNS: Temperature is 98, pulse is 90 and irregular, respirations 18, blood pressure is 129/82, pulse oximetry is 97% on room air. LABORATORY DATA: WBC 9.4, hemoglobin is 14.4, hematocrit is 43, platelet count is 210. Sodium is 143, potassium 4.1, chloride is 108, carbon dioxide 27, BUN 14, creatinine 0.96, GFR greater than 60, fasting glucose 121, calcium 8.3, magnesium 2.3. PT is 14.8, INR is 1.14. IMAGING STUDIES: Chest x-ray shows cardiomegaly. DISCHARGE MEDICATIONS: - amiodarone 200 mg by mouth daily - Eliquis 5 mg by mouth twice a day - diltiazem 30 mg by mouth every six hours - Tylenol 500 mg by mouth every four hours as needed - albuterol inhalation every four hours as needed - aspirin 81 mg by mouth daily - atorvastatin 10 mg by mouth every two days - calcium/vitamin D supplement one tablet by mouth twice a day - sertraline 10 mg by mouth every morning - Breo one inhalation every morning - losartan 100 mg by mouth at bedtime - magnesium oxide 800 mg by mouth twice a day - multivitamin one tablet by mouth daily - nitroglycerin 0.4 mg sublingual every five minutes as needed for chest pain - omeprazole 20 mg by mouth twice a day - spironolactone 50 mg by mouth every morning - torsemide 5 mg by mouth every morning DISCHARGE INSTRUCTIONS: Discharge home. Activity as tolerated. Low-salt diet as tolerated. The patient should followup with his primary care provider in 1-2 weeks. The patient should followup with Dr. Boland in two weeks. DISCHARGE CONDITION: Stable. DISCHARGE TIME: Greater than 30 minutes.
== END 2016-11-09 11:38 | disposition home or self-care (01) ==
LOC: M ED 23:11 → M ED INP 23:12 → M PCU 11-07 14:57
PROVIDERS: ADMIT Hospitalist; ATTEND Internal Medicine
DX: I48.91 Unspecified atrial fibrillation (principal); R51 Headache; R07.89 Other chest pain; I25.10 Atherosclerotic heart disease of native coronary artery without angina pectoris; I10 Essential (primary) hypertension; G47.33 Obstructive sleep apnea (adult) (pediatric); R73.03 Prediabetes; K21.9 Gastro-esophageal reflux disease without esophagitis; Z79.82 Long term (current) use of aspirin; Z79.899 Other long term (current) drug therapy; Z79.51 Long term (current) use of inhaled steroids; R06.02 Shortness of breath
CPT/HCPCS: 36415; 71010; 80048; 80076; 82550; 82553; 83036; 83735; 83880; 84436; 84443; 84479; 84484; 85025; 85027; 85610; 85730; 90662; 93005; 93041; 94640; 94664; 94760; 96372; 96374; 96376; 97161; 99285; G0008; G0378; G8978; G8979; G8980; J1650

== ENCOUNTER 2016-12-25 17:14 | Observation (INO) | payer MEDICARE ==
[~2016-12-25] VITALS: Ht 170.2 cm; Wt 105.8 kg
[~2016-12-25 17:14] MED LIST changes: +ALBU83IN INH; +AMIO200T PO; +CARD40TA PO; +ELIQ5TAB PO
[2016-12-25 19:11] LABS: BASO # 0.1 10^3/uL (0.0-0.2); BASO % 0.8 % (0.0-1.0); EOS # 0.2 10^3/uL (0.0-0.50); EOS % 1.5 % (0.0-3.0); IMMATURE GRANULOCYTE % 0.3 % (0-0); LYMPH # 2.5 10^3/uL (1.5-4.5); LYMPH % 25.1 % (24.0-44.0); MEAN CORPUSCULAR HEMOGLOBIN 31.4 pg (27.0-33.0); MEAN CORPUSCULAR HGB CONC 33.9 g/dl (32.0-36.5); MEAN CORPUSCULAR VOLUME 92.7 fl (80.0-96.0); MONO % 9.5 % (0.0-5.0); NEUTROPHILS # 6.3 10^3/uL (1.8-7.7); NEUTROPHILS % 62.8 % (36.0-66.0); PLATELET COUNT, AUTOMATED 248 10^3/uL (150-450); RED CELL DISTRIBUTION WIDTH 11.9 % (11.5-14.5); WHITE BLOOD COUNT 10.1 10^3/uL (4.0-10.0)
--- NOTE | 2016-12-25 19:23 | REP ---
PORTABLE CHEST: AP portable view of the chest is performed and compared to prior study of 11/06/2016. There is no acute infiltrate or pulmonary edema. There is mild cardiomegaly. Mediastinal silhouette is unremarkable. IMPRESSION: Mild cardiomegaly. No acute infiltrate. Signed by Francisco Talamantes MD 12/25/2016 08:13 P
[2016-12-25 19:44] LABS: ANION GAP 7 MEQ/L (8-16); BLOOD UREA NITROGEN 13 MG/DL (7-18); CALCIUM LEVEL 9.2 MG/DL (8.8-10.2); CARBON DIOXIDE LEVEL 31 MEQ/L (21-32); CHLORIDE LEVEL 104 MEQ/L (98-107); CREATININE FOR GFR 1.06 MG/DL (0.70-1.30); GLOMERULAR FILTRATION RATE > 60.0 (>42); GLUCOSE, FASTING 114 MG/DL (83-110); POTASSIUM SERUM 4.2 MEQ/L (3.5-5.1); SODIUM LEVEL 142 MEQ/L (136-145)
[2016-12-25] MEDS: LOSARTAN 50 MG TAB PO SCH (21:00)
[2016-12-25] MEDS: OMEPRAZOLE 20 MG CAP PO SCH (21:00)
[2016-12-25] MEDS ORDERED: ACETAMINOPHEN TAB 650MG DOSE (2X325MG) PO PRN (22:00)
[2016-12-25] MEDS ORDERED: IPRATROPIUM 0.5MG/ALBUTEROL 2.5MG INH SOL UD 3ML (DUONEB)(J7620) NEB PRN (22:15)
[2016-12-25] MEDS ORDERED: ELIQ5TAB PO (22:18)
[2016-12-25] MEDS ORDERED: CART120C PO (22:18)
[2016-12-25] MEDS ORDERED: AMIO200T PO (22:18)
[2016-12-25] MEDS ORDERED: COUM1TAB17 PO (22:19)
[2016-12-25 22:26] LABS: INR 1.12
[2016-12-25] MEDS ORDERED: NITROGLYCERIN 0.4 MG SUBL TABLET SL PRN (22:30)
[2016-12-25 23:00] VITALS: BP 159/82
[2016-12-25] MEDS: APIXABAN 5 MG TAB (ELIQUIS) PO SCH (23:11)
--- NOTE | 2016-12-25 23:21 | HPE ---
DATE OF ADMISSION: 12/25/2016 The patient, Rocky Lazo, is a 71-year-old male. Patient's primary medical doctor (PMD) is Dr. Jalil Griffith. Patient's cardiology is Dr. Boland. I had first seen this patient 12/25/2016. The patient comes in with a chief complaint of feeling like he is going to pass out. Patient has a previous medical history of atrial fibrillation, coronary artery disease, possible congestive heart failure (CHF), obstructive sleep apnea and prediabetes mellitus. Patient with recent admission in our hospital about 1-1/2 months ago for chest discomfort and lightheadedness. Patient comes in with a history of present illness as follows: Patient noted that he was feeling a little lightheaded through the day without any nausea, vomiting, chest pain or shortness of breath. Patient notes, however, that he has three particularly pervasive episodes of this lightheadedness that have now been resolved. The patient notes that initially when he felt this way, he felt like his blood sugar might be low, so he went with his to [facility] where he at some fries and apparently that made him feel better. However, after the patient's third episode, he decided he should come to the hospital. Patient notes that while at home he has a self-check blood pressure machine for his hypertension and when he checked it, he noted that his heart rate was in the 40s. When he came into the emergency department (ED), his heart rate was found to be within normal limits. Patient's past surgical history includes cardiac ablation, cardiac catheterization negative, no stents, right shoulder surgery and left testicular surgery. SOCIAL HISTORY: The patient is a former smoker, quit 25 years ago, approximately. He used to be a heavy drinker, quit that 12 years ago. The patient's family history includes a mother with coronary artery disease and brother with CHF. On full review of systems, the patient has no other acute complaints beyond those noted in the history of the present illness. The patient takes numerous home medications, including Tylenol, albuterol, aspirin, Lipitor, calcium, Zyrtec, Breo, losartan, magnesium, amiodarone. Patient with a recent discharge; however, some changes to his medications, such as patient will be starting on warfarin as he no longer is able to pay for the Eliquis. However, the patient is still taking Eliquis, though he already took the warfarin home from the pharmacy. This is important to note as the records indicate he is taking both, which is incorrect. On physical exam, patient's vital signs show heart rate in the 60s, blood pressure 160/90, pulse oximetry 94% on room air. Patient is alert and oriented times three with normal affect, normal mood. The patient is resting comfortably in no apparent distress. Head is normocephalic, atraumatic. Extraocular muscles intact, pupils equal, round, and reactive to light and accommodation. Ears, nose and throat (ENT): Within normal limits. Neck is supple, good range of motion. No apparent lymphadenopathy. S1, S2. Good inspiratory/expiratory effort. No wheezes, rhonchi or rales. Abdomen is soft, nontender to palpation. Patient with good strength in all four major extremities. Patient able to ambulate without need of assistance. Patient not showing any difficulty with ambulating or lack of balance during ambulation. Cranial nerves II-XII grossly intact. Patient with grossly normal hearing. On imaging, chest x-ray shows mild cardiomegaly. No acute infiltrate. EKG: Without any apparent acute ischemic findings. Laboratory exam shows CBC within normal limits except an extremely mildly elevated WBC count of 10.1. Blood chemistry also grossly normal on BMP except the fasting glucose of 114, which was not a fasting glucose and POC glucose at 125. ASSESSMENT AND PLAN: Patient is a 71-year-old male who comes in with three episodes of presyncope. Patient admitted under the impression of lightheadedness, likely secondary to medications versus other causes to be ruled out by observation and telemetry. Will be holding patient's rate control medications for now. Restart in the morning at lower dose Cardizem 90 instead of 120. Continue other home cardiac meds (Amiodarone) Consider cardiology referral as an outpatient if the patient remains asymptomatic overnight and does well on medications when restarted. If the patient continues to be symptomatic, may require cardiology before discharge in order to properly prescribe safe regimen for patient prior to discharge. Hypertension. Continue patient's hypertensive home medications. Deep vein thrombosis (DVT) prophylaxis. The patient will continue his anticoagulation for atrial fibrillation, which will serve both as deep vein thrombosis (DVT) prophylaxis as well as treatment for his atrial fibrillation. However, the patient is ambulatory and not expected to have a prolonged admission anyway. Gastroesophageal reflux disease (GERD). Continue the patient's home medications. Gastrointestinal (GI) prophylaxis. As noted above for GERD. COPD- Duo Nebs as inpatient PRN only, patient notes he rarely uses home meds CAD- Continue Home meds Obstructive sleep apnea. The patient did not bring his continuous positive airway pressure (CPAP) machine in. Will request in-hospital CPAP. If the patient does not tolerate in-hospital CPAP, as he has expressed to me difficulty in the past with using it, will order oxygen (O2) nasal cannula for patient as he sleeps. Patient at this time asymptomatic; therefore, I believe patient likely to be discharged before two midnights. Therefore, the patient will be for observation only at this time pending any changes in patient's clinical picture. KARLI
[2016-12-26 04:00] VITALS: BP 125/86
[2016-12-26 05:03] LABS: MEAN CORPUSCULAR HEMOGLOBIN 31.4 pg (27.0-33.0); MEAN CORPUSCULAR HGB CONC 34.2 g/dl (32.0-36.5); MEAN CORPUSCULAR VOLUME 91.7 fl (80.0-96.0); PLATELET COUNT, AUTOMATED 243 10^3/uL (150-450); RED CELL DISTRIBUTION WIDTH 11.9 % (11.5-14.5); WHITE BLOOD COUNT 10.8 10^3/uL (4.0-10.0)
[2016-12-26 05:19] LABS: ANION GAP 6 MEQ/L (8-16); BLOOD UREA NITROGEN 12 MG/DL (7-18); CARBON DIOXIDE LEVEL 32 MEQ/L (21-32); CHLORIDE LEVEL 103 MEQ/L (98-107); CREATININE FOR GFR 1.08 MG/DL (0.70-1.30); GLOMERULAR FILTRATION RATE > 60.0 (>42); GLUCOSE, FASTING 122 MG/DL (83-110); POTASSIUM SERUM 4.6 MEQ/L (3.5-5.1); SODIUM LEVEL 141 MEQ/L (136-145)
--- NOTE | 2016-12-26 05:22 | IPNPDOC ---
Text Note Date of Service The patient was seen on 12/25/16. NOTE Informed by pharmacy that Cardizem 90 CD is not carried. Meds are capsules so 180 cd 1/2 tab is not an option Best option at this time is Cardizem 30 tid. if patient tolerates can DC to begin 90 CD day after D/C. If patient still Bradycardic on lower doses, other causes such as Amiodarone will require investigation. In such a case Cards as inpatient More reasonable since Multiple changes on Tailored medications may be required. VS,Fishbone, I+O VS, Fishbone, I+O Laboratory Tests 12/25/16 18:31 Red Blood Count 4.78, Mean Corpuscular Volume 92.7, Mean Corpuscular Hemoglobin 31.4, Mean Corpuscular Hemoglobin Concent 33.9, Red Cell Distribution Width 11.9 , Neutrophils (%) (Auto) 62.8, Lymphocytes (%) (Auto) 25.1, Monocytes (%) (Auto ) 9.5 H, Eosinophils (%) (Auto) 1.5, Basophils (%) (Auto) 0.8, Neutrophils # ( Auto) 6.3, Lymphocytes # (Auto) 2.5, Monocytes # (Auto) 1.0 H, Eosinophils # ( Auto) 0.2, Basophils # (Auto) 0.1, Calcium Level 9.2, Total Creatine Kinase 72 12/26/16 04:34 Red Blood Count 4.81, Mean Corpuscular Volume 91.7, Mean Corpuscular Hemoglobin 31.4, Mean Corpuscular Hemoglobin Concent 34.2, Red Cell Distribution Width 11.9 , Calcium Level 9.0 Vital Signs Date Time Temp Pulse Resp B/P (MAP) Pulse Ox O2 Delivery O2 Flow Rate FiO2 12/26/16 04:00 Room Air 12/25/16 23:00 97.9 60 20 159/82 (107) 96 HEMANT WOODY MD Dec 26, 2016 05:22
[2016-12-26 07:10] LABS: CHOLESTEROL LEVEL 111 MG/DL (<200); TRIGLYCERIDES LEVEL 101 MG/DL (<150)
[2016-12-26 08:00] VITALS: BP_SYST 137; BP_SYST 138; BP_SYST 139; BP_SYST 148; BP_DIAS 69; BP_DIAS 74; BP_DIAS 75; BP_DIAS 79
[2016-12-26] MEDS: MULTIVITAMINS/MINERALS THERAP 1 TAB PO SCH (08:02)
[2016-12-26] MEDS: APIXABAN 5 MG TAB (ELIQUIS) PO SCH ×2 (08:02→21:08)
[2016-12-26] MEDS: AMIODARONE 200 MG TAB (PACERONE) PO SCH (08:02)
[2016-12-26] MEDS: MAGNESIUM OXIDE 400 MG TAB (MAG-OX) PO SCH ×2 (08:02→21:09)
[2016-12-26] MEDS: SPIRONOLACTONE 50 MG TAB PO SCH (08:02)
[2016-12-26] MEDS: ASPIRIN 81 MG ENTERIC TAB PO SCH ×2 (08:02→08:05)
[2016-12-26] MEDS: OMEPRAZOLE 20 MG CAP PO SCH ×2 (08:02→21:08)
--- NOTE | 2016-12-26 08:39 | ECGEPIP ---
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
[2016-12-26] MEDS ORDERED: diltiaZEM **CD** 180 MG CAP PO SCH (09:00)
[2016-12-26] MEDS: TORSEMIDE 5MG TABLET PO SCH (09:48)
[2016-12-26 11:53] VITALS: BP 149/78
--- NOTE | 2016-12-26 13:06 | IPNPDOC ---
Subjective Date Seen The patient was seen on 12/26/16. Subjective Chief Complaint/HPI The patient is a 71-year-old male admitted with a reason for visit of Near Syncope. General: Denies: Chills, Night Sweats Constitutional: Denies: Chills, Fever, Malaise Eyes: Denies: Pain, Vision change ENT: Denies: Head Aches Skin: Denies: Rash, Lesions Pulmonary: Denies: Dyspnea, Cough Cardiovascular: Denies: Chest Pain, Palpitations, Orthopnea, Paroxysmal Noc. Dyspnea, Edema, Lt Headedness Gastrointestinal: Denies: Nausea, Vomiting Genitourinary: Denies: Dysuria Neurological: Denies: Weakness, Numbness, Incoordination, Change in speech, Confusion, Seizures Psych: Reports: Mood Normal Objective Physical Examination General Exam: Positive: Alert, Cooperative, No Acute Distress Eye Exam: Positive: Conjunctiva & lids normal, EOMI, Negative: Sclera icteric ENT Exam: Positive: Atraumatic, Mucous membr. moist/pink, Pharynx Normal, Tongue Midline, Nares Patent Chest Exam: Positive: Clear to auscultation, Normal air movement, Negative: Rales, Rhonchi, Wheezing, Diminished Heart Exam: Positive: Rate Normal, Normal S1, Normal S2, Negative: Gallops, Murmurs, Rubs Telemetry: Positive: No significant arrhythmia Abdomen Exam: Positive: Normal bowel sounds, Soft, Negative: Tenderness, Hepatospenomegaly, Mass Male Exam: Positive: Normal Genital Exam Extremity Exam: Positive: Normal pulses, Negative: Clubbing, Cyanosis, Edema, Tenderness, Swelling Skin Exam: Positive: Nl turgor and temperature Neuro Exam: Positive: Normal Gait, Normal Speech, Normal Tone, Sensation Intact , Cranial Nerves 3-12 NL Psych Exam: Positive: Oriented x 3 Assessment /Plan Assessment On examination today the patient stated that he had no more episodes of feeling dizzy or lightheaded. He denied having chest pain or shortness of breath. He stated that he felt very well actually. 1. Lightheadedness There were no overnight events reported on telemetry, patient states he has not been lightheaded since he came to the hospital. Patient will receive bilateral carotid ultrasound to observe any blockages. 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 We will not obtain an echocardiogram at this time and if he continues to be asymptomatic with no events on telemetry over the next 24 hours he can be discharged with close follow-up at his print designer's office outpatient. 2. Hypertension Blood pressure is stable, will continue patient's hypertensive home medications 3.GERD Will continue patient's home medications. 4.COPD DuoNeb's as inpatient when necessary, patient is not short of breath. 5.Coronary artery disease Will continue home medications 6.Obstructive sleep apnea Patient will use in hospital CPAP at night Plan/VTE VTE Prophylaxis Ordered?: Yes VS, I&O, 24H, Fishbone Vital Signs/I&O Vital Signs Date Time Temp Pulse Resp B/P (MAP) Pulse Ox O2 Delivery O2 Flow Rate FiO2 12/26/16 12:17 Room Air 12/26/16 11:53 97.2 59 18 149/78 (101) 95 I&O- Last 24 Hours up to 6 AM 12/27/16 06:00 Intake Total 240 ml Balance 240 ml Laboratory Data 24H LABS Laboratory Tests 2 12/25/16 18:10: Bedside Glucose (Misc Panel) 125H 12/25/16 18:30: Prothrombin Time 14.6H, Prothromb Time International Ratio 1.12 12/25/16 18:31: Immature Granulocyte % (Auto) 0.3H, White Blood Count 10.1H, Red Blood Count 4.78, Hemoglobin 15.0, Hematocrit 44.3, Mean Corpuscular Volume 92.7, Mean Corpuscular Hemoglobin 31.4, Mean Corpuscular Hemoglobin Concent 33.9, Red Cell Distribution Width 11.9, Platelet Count 248, Neutrophils (%) (Auto) 62.8, Lymphocytes (%) (Auto) 25.1, Monocytes (%) (Auto) 9.5H, Eosinophils (%) (Auto) 1.5, Basophils (%) (Auto) 0.8, Neutrophils # (Auto) 6.3, Lymphocytes # (Auto) 2.5, Monocytes # (Auto) 1.0H, Eosinophils # (Auto) 0.2, Basophils # (Auto) 0.1, Immature Granulocyte # (Auto) 0.0, Nucleated Red Blood Cells % (auto) 0.0, Anion Gap 7L, Glomerular Filtration Rate > 60.0, Blood Urea Nitrogen 13, Creatinine 1.06, Sodium Level 142, Potassium Level 4.2, Chloride Level 104, Carbon Dioxide Level 31, Calcium Level 9.2, Total Creatine Kinase 72, Creatine Kinase MB 1.1, Creatine Kinase MB Relative Index 1.52, Troponin I < 0.02, Thyroid Stimulating Hormone (TSH) 2.530 12/26/16 04:34: Nucleated Red Blood Cells % (auto) 0.0, Anion Gap 6L, Glomerular Filtration Rate > 60.0, Blood Urea Nitrogen 12, Creatinine 1.08, Sodium Level 141, Potassium Level 4.6, Chloride Level 103, Carbon Dioxide Level 32, Calcium Level 9.0, Total Creatine Kinase 65, Creatine Kinase MB 1.0, Creatine Kinase MB Relative Index 1.53, Troponin I < 0.02, Triglycerides Level 101, LDL Cholesterol 44.8, Total Cholesterol 111, Non-HDL Cholesterol (LDL + VLDL) 65, Total HDL Cholesterol 46, Cholesterol/HDL Ratio 2.413 12/26/16 11:58: Total Creatine Kinase 68, Creatine Kinase MB 1.1, Creatine Kinase MB Relative Index 1.61, Troponin I < 0.02 CBC/BMP Laboratory Tests 12/25/16 18:31 Red Blood Count 4.78, Mean Corpuscular Volume 92.7, Mean Corpuscular Hemoglobin 31.4, Mean Corpuscular Hemoglobin Concent 33.9, Red Cell Distribution Width 11.9 , Neutrophils (%) (Auto) 62.8, Lymphocytes (%) (Auto) 25.1, Monocytes (%) (Auto ) 9.5 H, Eosinophils (%) (Auto) 1.5, Basophils (%) (Auto) 0.8, Neutrophils # ( Auto) 6.3, Lymphocytes # (Auto) 2.5, Monocytes # (Auto) 1.0 H, Eosinophils # ( Auto) 0.2, Basophils # (Auto) 0.1, Calcium Level 9.2, Total Creatine Kinase 72 12/26/16 04:34 Red Blood Count 4.81, Mean Corpuscular Volume 91.7, Mean Corpuscular Hemoglobin 31.4, Mean Corpuscular Hemoglobin Concent 34.2, Red Cell Distribution Width 11.9 , Calcium Level 9.0 GME ATTESTATION GME ATTESTATION My faculty preceptor for this patient encounter was physically present during the encounter and was fully available. All aspects of the patient interview, examination, medical decision making process, and medical care plan development were reviewed and approved by the faculty preceptor. The faculty preceptor is aware and concurs with the plan as stated in the body of this note and will attest to such by his/her cosignature. MARCELLE BUCK DO Dec 26, 2016 13:06
--- NOTE | 2016-12-26 14:57 | REP ---
CAROTID ULTRASOUND: Real-time ultrasound evaluation and duplex Doppler interrogation of the extracranial carotid vasculature is performed. There is mild plaquing and narrowing in both carotid bulbs extending into the internal and external carotid arteries. Luminal narrowing is less than 50%. There is no evidence of hemodynamically significant stenosis of either internal carotid artery. Normal flow velocities are seen. The vertebral arteries demonstrate normal direction of flow. RIGHT LEFT Peak systolic velocity ICA 51.9 cm/s 56.8 cm/s End diastolic velocity ICA 9.7 cm/s 14.2 cm/s Peak systolic velocity CCA 74.6 cm/s 72.5 cm/s Peak systolic velocity ECA 68.2 cm/s 105 cm/s ICA/CCA ratio 0.7 0.78 IMPRESSION: Bilateral luminal narrowing of the internal carotid arteries less than 50%. No evidence of hemodynamically significant stenosis. Signed by Francisco Talamantes MD 12/26/2016 12:21 P
[2016-12-26 16:00] VITALS: BP 132/77
[2016-12-26 16:24] VITALS: BP_SYST 134; BP_SYST 140; BP_SYST 144; BP_DIAS 66; BP_DIAS 70
[2016-12-26 20:00] VITALS: BP 139/82
[2016-12-26] MEDS ORDERED: ATORVASTATIN 10 MG TAB PO SCH (21:00)
[2016-12-26] MEDS: LOSARTAN 50 MG TAB PO SCH (21:09)
[2016-12-27] VITALS: BP 136/81
[2016-12-27 04:00] VITALS: BP_SYST 100; BP_SYST 108; BP_SYST 111; BP_DIAS 57; BP_DIAS 59; BP_DIAS 63
[2016-12-27 05:36] VITALS: BP 129/72
[2016-12-27 06:10] LABS: MEAN CORPUSCULAR HEMOGLOBIN 31.5 pg (27.0-33.0); MEAN CORPUSCULAR HGB CONC 33.9 g/dl (32.0-36.5); MEAN CORPUSCULAR VOLUME 92.9 fl (80.0-96.0); PLATELET COUNT, AUTOMATED 252 10^3/uL (150-450); RED CELL DISTRIBUTION WIDTH 11.9 % (11.5-14.5); WHITE BLOOD COUNT 8.5 10^3/uL (4.0-10.0)
[2016-12-27 06:25] LABS: ANION GAP 5 MEQ/L (8-16); BLOOD UREA NITROGEN 14 MG/DL (7-18); CALCIUM LEVEL 8.4 MG/DL (8.8-10.2); CARBON DIOXIDE LEVEL 31 MEQ/L (21-32); CHLORIDE LEVEL 106 MEQ/L (98-107); GLOMERULAR FILTRATION RATE > 60.0 (>42); GLUCOSE, FASTING 116 MG/DL (83-110); POTASSIUM SERUM 4.1 MEQ/L (3.5-5.1); SODIUM LEVEL 142 MEQ/L (136-145)
[2016-12-27 07:59] VITALS: BP 128/77
[2016-12-27] MEDS: ASPIRIN 81 MG ENTERIC TAB PO SCH ×2 (09:00→09:21)
[2016-12-27] MEDS: MAGNESIUM OXIDE 400 MG TAB (MAG-OX) PO SCH (09:21)
[2016-12-27] MEDS: APIXABAN 5 MG TAB (ELIQUIS) PO SCH (09:21)
[2016-12-27] MEDS: OMEPRAZOLE 20 MG CAP PO SCH (09:21)
[2016-12-27] MEDS: TORSEMIDE 5MG TABLET PO SCH (09:21)
[2016-12-27] MEDS: SPIRONOLACTONE 50 MG TAB PO SCH (09:21)
[2016-12-27] MEDS: MULTIVITAMINS/MINERALS THERAP 1 TAB PO SCH (09:21)
[2016-12-27] MEDS: AMIODARONE 200 MG TAB (PACERONE) PO SCH (09:21)
[2016-12-27] MEDS ORDERED: MECL12.575 PO (11:23)
--- NOTE | 2016-12-27 13:51 | DS.PDOC ---
Discharge Summary General Date of Admission Dec 25, 2016 at 21:59 Date of Discharge 12/27/16 Discharge Summary PROCEDURES PERFORMED DURING STAY: None. ADMITTING/DISCHARGE DIAGNOSES: Lightheadedness, Dizziness likely 2/2 Vertigo Atrial Fibrillation on Eliquis Hypertension COPD CAD ANGELA COMPLICATIONS/CHIEF COMPLAINT: Near Syncope. HISTORY OF PRESENT ILLNESS: . 71-year-old male with past medical history of atrial fibrillation on eliquis, hypertension, COPD, CAD, and obstructive sleep apnea presented to the ER with a chief complaint of lightheadedness and dizziness. The patient states that over the last few days he's had a couple of lightheadedness/dizzy spells. He denies any specific situations as to when they occur. He described the sensation as feeling like the room is spinning at times. He denied any complaints of fevers, chills, chest pain, palpitations, abdominal pain, or any nausea/vomiting/ diarrhea. He also denied any focal neurological findings such as facial droop, numbness/tingling, visual blurring, or any weakness of the extremities. The patient was admitted to the hospitalist service for further evaluation and management. During hospitalization, the patient did not have any further episodes of lightheadedness/dizziness. In addition, the patient was monitored on telemetry and was not noted to have any acute events. Orthostatic vital signs have been within normal limits. An ultrasound of carotids was obtained, and revealed no hemodynamically significant stenosis. The patient noted that a 2-D echocardiogram was recently obtained at his production laborer's office 2 weeks ago. At this time, the patient states that he is feeling much better, denies any acute complaints, and states that he is eager to return home. I have advised the patient to follow-up with his primary care physician and production laborer within 1 week. In addition, the patient has been prescribed meclizine for his dizzy spells. I have consulted the patient to return to the ER for worsening of his symptoms or for any acute emergencies. DISCHARGE MEDICATIONS: Please see below. ALLERGIES: Please see below. PHYSICAL EXAMINATION ON DISCHARGE: VITAL SIGNS: Please see below. GENERAL: Awake, alert, oriented 4 HEENT: Normocephalic, atraumatic NECK: No JVD CARDIOVASCULAR EXAMINATION: Irregular rhythm, rate controlled RESPIRATORY EXAMINATION: Clear to auscultation bilaterally ABDOMINAL EXAMINATION: Soft, nontender, nondistended EXTREMITIES: No erythema, no tenderness LABORATORY DATA: Please see below. IMAGING: CAROTID ULTRASOUND: Real-time ultrasound evaluation and duplex Doppler interrogation of the extracranial carotid vasculature is performed. There is mild plaquing and narrowing in both carotid bulbs extending into the internal and external carotid arteries. Luminal narrowing is less than 50%. There is no evidence of hemodynamically significant stenosis of either internal carotid artery. Normal flow velocities are seen. The vertebral arteries demonstrate normal direction of flow. RIGHT LEFT Peak systolic velocity ICA 51.9 cm/s 56.8 cm/s End diastolic velocity ICA 9.7 cm/s 14.2 cm/s Peak systolic velocity CCA 74.6 cm/s 72.5 cm/s Peak systolic velocity ECA 68.2 cm/s 105 cm/s ICA/CCA ratio 0.7 0.78 IMPRESSION: Bilateral luminal narrowing of the internal carotid arteries less than 50%. No evidence of hemodynamically significant stenosis. PROGNOSIS: Fair ACTIVITY: As tolerated. DIET: . 2 g low sodium diet DISCHARGE PLAN: DISPOSITION: 01 Home, Self-Care. DISCHARGE INSTRUCTIONS: I have advised the patient to follow-up with his primary care physician and production laborer within 1 week. In addition, the patient has been prescribed meclizine for his dizzy spells. I have consulted the patient to return to the ER for worsening of his symptoms or for any acute emergencies. DISCHARGE CONDITION: Stable. TIME SPENT ON DISCHARGE: Greater than 30 minutes. Vital Signs/I&Os Vital Signs Date Time Temp Pulse Resp B/P (MAP) Pulse Ox O2 Delivery O2 Flow Rate FiO2 12/27/16 08:00 Room Air 12/27/16 07:59 97.2 72 18 128/77 (94) 94 I&O- Last 24 Hours up to 6 AM 12/28/16 06:00 Intake Total 480 ml Output Total 0 ml Balance 480 ml Laboratory Data Labs 24H Laboratory Tests 2 12/26/16 19:57: Total Creatine Kinase 70, Creatine Kinase MB 1.0, Creatine Kinase MB Relative Index 1.42, Troponin I < 0.02 12/27/16 05:25: Nucleated Red Blood Cells % (auto) 0.0, Anion Gap 5L, Glomerular Filtration Rate > 60.0, Blood Urea Nitrogen 14, Creatinine 1.00, Sodium Level 142, Potassium Level 4.1, Chloride Level 106, Carbon Dioxide Level 31, Calcium Level 8.4L CBC/BMP Laboratory Tests 12/27/16 05:25 Red Blood Count 4.76, Mean Corpuscular Volume 92.9, Mean Corpuscular Hemoglobin 31.5, Mean Corpuscular Hemoglobin Concent 33.9, Red Cell Distribution Width 11.9 , Calcium Level 8.4 L Discharge Medications Scheduled (Calcium + D3 600-200 mg-Unit) 1 Tab Tab, 1 TAB PO BID, (Reported) Amiodarone HCl (Amiodarone HCl) 200 Mg Tab, 200 MG PO DAILY, (Reported) Apixaban Base (Eliquis) 5 Mg Tab, 5 MG PO BID, (Reported) Aspirin (Aspirin) 81 Mg Tab, 81 MG PO DAILY, (Reported) Atorvastatin Calcium (Lipitor) 10 Mg Tab, 10 MG PO Q2D, (Reported) AT BEDTIME Cetirizine HCl (Cetirizine HCl) 10 Mg Tab, 10 MG PO DAILY, (Reported) Diltiazem HCl (Cartia Xt) 120 Mg Cap, 120 MG PO DAILY, (Reported) Fluticasone/Vilanterol (Breo Ellipta 100-25 Mcg/INH) 1 Inh Inh, 1 INH INH DAILY, (Reported) Losartan Potassium (Losartan Potassium) 100 Mg Tab, 100 MG PO QHS, (Reported) Magnesium Oxide (Magnesium Oxide 400) 400 Mg Tab, 800 MG PO BID, (Reported) Multivitamins *[facility] STOCKED* (Thera M Plus *[facility] STOCKED*) 1 Tab Tab, 1 TAB PO DAILY, (Reported) Omeprazole (Omeprazole) 20 Mg Cap, 20 MG PO BID, (Reported) Spironolactone (Spironolactone) 50 Mg Tab, 50 MG PO DAILY, (Reported) Torsemide (Torsemide) 5 Mg Tab, 5 MG PO DAILY, (Reported) Warfarin Sod (Coumadin) 5 Mg Tab, 5 MG PO BID, (Reported) TO START AFTER ELIQUIS IS FINISHED EST. 01/20/17 Scheduled PRN Acetaminophen (Acetaminophen) 500 Mg Tab, 500 MG PO Q4H PRN for PAIN, (Reported) Albuterol Sulfate (Albuterol Sulfate) 2.5 Mg/3 Ml Nebu, 1 VIAL INH Q4H PRN for SHORTNESS OF BREATH, (Reported) Meclizine HCl (Meclizine HCl) 12.5 Mg Tab, 12.5 MG PO DAILYPRN PRN for DIZZINESS Nitroglycerin (Nitrostat) 0.4 Mg Subl, 0.4 MG SL Q5MP PRN for CHEST PAIN, ( Reported) Allergies Coded Allergies: Penicillins (Unverified Allergy, Unknown, hand swelling, 06/02/15) BARRETT ESTRADA MD Dec 27, 2016 13:51
== END 2016-12-27 12:35 | disposition home or self-care (01) ==
LOC: M ED 17:14 → M ED INP 21:59 → M PCU 23:00
PROVIDERS: ADMIT Internal Medicine; ATTEND Internal Medicine
DX: R42 Dizziness and giddiness (principal); I48.91 Unspecified atrial fibrillation; I11.9 Hypertensive heart disease without heart failure; I25.10 Atherosclerotic heart disease of native coronary artery without angina pectoris; J44.9 Chronic obstructive pulmonary disease, unspecified; G47.33 Obstructive sleep apnea (adult) (pediatric); E78.00 Pure hypercholesterolemia, unspecified; K21.9 Gastro-esophageal reflux disease without esophagitis; Z88.0 Allergy status to penicillin; Z79.899 Other long term (current) drug therapy; Z79.01 Long term (current) use of anticoagulants; Z79.82 Long term (current) use of aspirin; Z87.891 Personal history of nicotine dependence; Z79.51 Long term (current) use of inhaled steroids
CPT/HCPCS: 36415; 71010; 80048; 80061; 82550; 82553; 84443; 84484; 85025; 85027; 85610; 93005; 93041; 93880; 94760; 99285; G0378

== ENCOUNTER 2017-01-09 15:08 | Emergency (ER) | payer MEDICARE ==
[~2017-01-09] VITALS: Ht 170.2 cm; Wt 109.9 kg
[~2017-01-09 15:08] MED LIST changes: +CART120C PO; +MECL12.575 PO
[2017-01-09 15:16] VITALS: BP 161/84
== END 2017-01-09 16:43 | disposition home or self-care (01) ==
LOC: M ED 15:08
DX: R19.7 Diarrhea, unspecified (principal); I11.0 Hypertensive heart disease with heart failure; I50.9 Heart failure, unspecified; E11.9 Type 2 diabetes mellitus without complications; J44.9 Chronic obstructive pulmonary disease, unspecified; E78.00 Pure hypercholesterolemia, unspecified; G47.30 Sleep apnea, unspecified; Z79.899 Other long term (current) drug therapy; Z79.01 Long term (current) use of anticoagulants; Z88.0 Allergy status to penicillin; Z87.891 Personal history of nicotine dependence

== ENCOUNTER 2017-02-02 15:09 | Emergency (ER) | payer MEDICARE ==
[2017-02-02 16:02] LABS: BASO # 0.1 10^3/uL (0.0-0.2); BASO % 0.6 % (0.0-1.0); EOS # 0.2 10^3/uL (0.0-0.50); EOS % 1.9 % (0.0-3.0); IMMATURE GRANULOCYTE % 0.3 % (0-0); LYMPH # 3.3 10^3/uL (1.5-4.5); LYMPH % 30.6 % (24.0-44.0); MEAN CORPUSCULAR HEMOGLOBIN 31.8 pg (27.0-33.0); MEAN CORPUSCULAR HGB CONC 34.4 g/dl (32.0-36.5); MEAN CORPUSCULAR VOLUME 92.4 fl (80.0-96.0); MONO % 9.5 % (0.0-5.0); NEUTROPHILS # 6.1 10^3/uL (1.8-7.7); NEUTROPHILS % 57.1 % (36.0-66.0); PLATELET COUNT, AUTOMATED 276 10^3/uL (150-450); RED CELL DISTRIBUTION WIDTH 11.9 % (11.5-14.5); WHITE BLOOD COUNT 10.7 10^3/uL (4.0-10.0)
[2017-02-02] MEDS: ASPIRIN 81 MG CHEW TABLET PO (16:10)
[2017-02-02 16:14] LABS: ALBUMIN 3.8 GM/DL (3.2-5.2); ALBUMIN/GLOBULIN RATIO 1.03 (1.00-1.93); ALKALINE PHOSPHATASE 78 U/L (45-117); ALT/SGPT 38 U/L (12-78); ANION GAP 6 MEQ/L (8-16); AST/SGOT 26 U/L (7-37); BILIRUBIN,DIRECT < 0.1 MG/DL (0.0-0.2); BILIRUBIN,TOTAL 0.6 MG/DL (0.2-1.0); BLOOD UREA NITROGEN 17 MG/DL (7-18); CALCIUM LEVEL 8.4 MG/DL (8.8-10.2); CARBON DIOXIDE LEVEL 29 MEQ/L (21-32); CHLORIDE LEVEL 106 MEQ/L (98-107); CREATININE FOR GFR 1.04 MG/DL (0.70-1.30); GLOMERULAR FILTRATION RATE > 60.0 (>42); GLUCOSE, FASTING 120 MG/DL (83-110); SODIUM LEVEL 141 MEQ/L (136-145); TOTAL PROTEIN 7.5 GM/DL (6.4-8.2)
[2017-02-02 16:40] LABS: INR 1.98
[2017-02-02] MEDS: GI COCKTAIL 50ML BTL(HYOSCYAMINE/MAALOX/LIDOCAINE VISCOUS)(1:3:1) PO (17:02)
== END 2017-02-02 20:25 | disposition home or self-care (01) ==
LOC: M ED 15:09
DX: K21.9 Gastro-esophageal reflux disease without esophagitis (principal); I10 Essential (primary) hypertension; E11.9 Type 2 diabetes mellitus without complications; I25.10 Atherosclerotic heart disease of native coronary artery without angina pectoris; Z86.73 Personal history of transient ischemic attack (TIA), and cerebral infarction without residual deficits; Z82.49 Family history of ischemic heart disease and other diseases of the circulatory system; Z79.899 Other long term (current) drug therapy; Z79.01 Long term (current) use of anticoagulants; Z79.51 Long term (current) use of inhaled steroids; Z88.0 Allergy status to penicillin; Z87.891 Personal history of nicotine dependence
CPT/HCPCS: 71010

== ENCOUNTER → 2017-02-03 | Outpatient (CLI) | payer MEDICARE ==
[2017-02-03 08:07] LABS: INR 1.99
== END ==
LOC: M LAB 07:39
DX: I48.91 Unspecified atrial fibrillation (principal)
CPT/HCPCS: 85610

== ENCOUNTER 2017-03-03 13:01 | Emergency (ER) | payer MEDICARE ==
[2017-03-03 13:44] LABS: BASO # 0.1 10^3/uL (0.0-0.2); BASO % 0.6 % (0.0-1.0); EOS # 0.1 10^3/uL (0.0-0.50); HEMATOCRIT 47.1 % (42.0-52.0); HEMOGLOBIN 15.8 g/dl (14.0-18.0); IMMATURE GRANULOCYTE % 0.4 % (0-0); LYMPH # 2.6 10^3/uL (1.5-4.5); LYMPH % 25.5 % (24.0-44.0); MEAN CORPUSCULAR HEMOGLOBIN 30.9 pg (27.0-33.0); MEAN CORPUSCULAR HGB CONC 33.5 g/dl (32.0-36.5); MEAN CORPUSCULAR VOLUME 92.2 fl (80.0-96.0); MONO # 0.9 10^3/uL (0.0-0.8); MONO % 8.7 % (0.0-5.0); NEUTROPHILS # 6.4 10^3/uL (1.8-7.7); NEUTROPHILS % 63.8 % (36.0-66.0); PLATELET COUNT, AUTOMATED 274 10^3/uL (150-450); RED BLOOD COUNT 5.11 10^6/uL (4.30-6.10); RED CELL DISTRIBUTION WIDTH 11.9 % (11.5-14.5)
[2017-03-03 14:17] LABS: NT-PRO BNP 325 PG/ML (<125)
[2017-03-03 14:18] LABS: ALBUMIN 4.1 GM/DL (3.2-5.2); ALBUMIN/GLOBULIN RATIO 1.03 (1.00-1.93); ALKALINE PHOSPHATASE 75 U/L (45-117); ALT/SGPT 31 U/L (12-78); ANION GAP 6 MEQ/L (8-16); AST/SGOT 17 U/L (7-37); BILIRUBIN,DIRECT 0.2 MG/DL (0.0-0.2); BILIRUBIN,TOTAL 1.1 MG/DL (0.2-1.0); BLOOD UREA NITROGEN 13 MG/DL (7-18); CARBON DIOXIDE LEVEL 31 MEQ/L (21-32); CHLORIDE LEVEL 104 MEQ/L (98-107); CK-MB VALUE MASS 1.2 NG/ML (0.0-3.6); CPK CREATINE PHOSPHOKINASE 85 U/L (39-308); CREATININE FOR GFR 1.04 MG/DL (0.70-1.30); GLOMERULAR FILTRATION RATE > 60.0 (>42); GLUCOSE, FASTING 93 MG/DL (70-100); LIPASE 138 U/L (73-393); MB/CK RELATIVE INDEX 1.41 (< OR =4); SODIUM LEVEL 141 MEQ/L (136-145); TOTAL PROTEIN 8.1 GM/DL (6.4-8.2); TROPONIN I < 0.02 NG/ML (< 0.10)
[2017-03-03] MEDS: NITROGLYCERIN 0.3 MG SUBL TAB SL (14:42)
[2017-03-03] MEDS: ASPIRIN 325 MG TAB PO (14:45)
[2017-03-03] MEDS: GI COCKTAIL 50ML BTL(HYOSCYAMINE/MAALOX/LIDOCAINE VISCOUS)(1:3:1) PO (15:30)
== END 2017-03-03 15:56 | disposition home or self-care (01) ==
LOC: M ED 13:01
DX: R07.9 Chest pain, unspecified (principal); R00.2 Palpitations; E11.9 Type 2 diabetes mellitus without complications; I10 Essential (primary) hypertension; J44.9 Chronic obstructive pulmonary disease, unspecified; E78.5 Hyperlipidemia, unspecified; I25.10 Atherosclerotic heart disease of native coronary artery without angina pectoris; I48.91 Unspecified atrial fibrillation; I25.2 Old myocardial infarction; K21.9 Gastro-esophageal reflux disease without esophagitis; Z99.89 Dependence on other enabling machines and devices; Z87.891 Personal history of nicotine dependence
CPT/HCPCS: 71045

== ENCOUNTER → 2017-03-04 | Outpatient (CLI) | payer MEDICARE ==
[2017-03-04 08:21] LABS: INR 1.77; PROTHROMBIN TIME 21.2 SECONDS (12.4-14.5)
== END ==
LOC: M LAB 07:01
DX: I48.91 Unspecified atrial fibrillation (principal)
CPT/HCPCS: 85610

== ENCOUNTER → 2017-03-18 | Outpatient (CLI) | payer MEDICARE ==
[2017-03-18 07:37] LABS: INR 1.83; PROTHROMBIN TIME 21.7 SECONDS (12.4-14.5)
== END ==
LOC: M LAB 06:27
DX: I48.91 Unspecified atrial fibrillation (principal); Z79.01 Long term (current) use of anticoagulants
CPT/HCPCS: 85610

== ENCOUNTER → 2017-03-30 | Outpatient (CLI) | payer MEDICARE ==
[2017-03-30 08:19] LABS: PROTHROMBIN TIME 31.6 SECONDS (12.4-14.5)
== END ==
LOC: M LAB 07:13
DX: I48.91 Unspecified atrial fibrillation (principal)
CPT/HCPCS: 85610

== ENCOUNTER 2017-04-15 22:11 | Emergency (ER) | payer MEDICARE ==
[2017-04-15 23:29] LABS: BASO # 0.1 10^3/uL (0.0-0.2); BASO % 0.7 % (0.0-1.0); EOS # 0.1 10^3/uL (0.0-0.50); EOS % 1.3 % (0.0-3.0); HEMATOCRIT 42.6 % (42.0-52.0); HEMOGLOBIN 14.3 g/dl (14.0-18.0); IMMATURE GRANULOCYTE % 0.4 % (0-3.0); LYMPH # 2.9 10^3/uL (1.5-4.5); LYMPH % 26.7 % (24.0-44.0); MEAN CORPUSCULAR HEMOGLOBIN 31.1 pg (27.0-33.0); MEAN CORPUSCULAR HGB CONC 33.6 g/dl (32.0-36.5); MEAN CORPUSCULAR VOLUME 92.6 fl (80.0-96.0); MONO # 1.3 10^3/uL (0.0-0.8); MONO % 11.7 % (0.0-5.0); NEUTROPHILS # 6.3 10^3/uL (1.8-7.7); NEUTROPHILS % 59.2 % (36.0-66.0); PLATELET COUNT, AUTOMATED 240 10^3/uL (150-450); WHITE BLOOD COUNT 10.7 10^3/uL (4.0-10.0)
[2017-04-15 23:45] LABS: INR 2.56; PROTHROMBIN TIME 28.5 SECONDS (12.4-14.5)
[2017-04-15 23:55] LABS: ANION GAP 8 MEQ/L (8-16); BLOOD UREA NITROGEN 23 MG/DL (7-18); CALCIUM LEVEL 8.4 MG/DL (8.8-10.2); CARBON DIOXIDE LEVEL 28 MEQ/L (21-32); CHLORIDE LEVEL 108 MEQ/L (98-107); CPK CREATINE PHOSPHOKINASE 142 U/L (39-308); CREATININE FOR GFR 1.05 MG/DL (0.70-1.30); FREE T4 1.04 NG/DL (0.76-1.46); GLOMERULAR FILTRATION RATE > 60.0 (>42); GLUCOSE, FASTING 124 MG/DL (70-100); MAGNESIUM LEVEL 2.1 MG/DL (1.8-2.4); POTASSIUM SERUM 4.2 MEQ/L (3.5-5.1); SODIUM LEVEL 144 MEQ/L (136-145); TROPONIN I < 0.02 NG/ML (< 0.10)
[2017-04-16 00:01] LABS: CK-MB VALUE MASS 1.9 NG/ML (0.0-3.6); MB/CK RELATIVE INDEX 1.33 (< OR =4)
== END 2017-04-16 02:05 | disposition home or self-care (01) ==
LOC: M ED 04-16 02:05
DX: I48.91 Unspecified atrial fibrillation (principal); R00.2 Palpitations; I25.10 Atherosclerotic heart disease of native coronary artery without angina pectoris; I50.9 Heart failure, unspecified; Z82.49 Family history of ischemic heart disease and other diseases of the circulatory system; Z79.01 Long term (current) use of anticoagulants; Z79.899 Other long term (current) drug therapy; Z88.0 Allergy status to penicillin
CPT/HCPCS: 93005

== ENCOUNTER → 2017-04-27 | Outpatient (CLI) | payer MEDICARE ==
[2017-04-27 08:30] LABS: INR 3.24; PROTHROMBIN TIME 34.6 SECONDS (12.4-14.5)
== END ==
LOC: M LAB 07:40
DX: Z51.81 Encounter for therapeutic drug level monitoring (principal); I48.91 Unspecified atrial fibrillation; Z79.01 Long term (current) use of anticoagulants
CPT/HCPCS: 85610

== ENCOUNTER → 2017-05-05 | Outpatient (CLI) | payer MEDICARE ==
[2017-05-05 08:16] LABS: INR 2.45; PROTHROMBIN TIME 27.5 SECONDS (12.4-14.5)
== END ==
LOC: M LAB 07:32
DX: I48.91 Unspecified atrial fibrillation (principal)
CPT/HCPCS: 85610

== ENCOUNTER 2017-05-10 11:26 | Day surgery (SDC) | payer MEDICARE ==
[2017-05-10] MEDS: NS 1,000 ML IV (11:45)
[2017-05-10] MEDS ORDERED: PROPOFOL 200 MG/20 ML VIAL As Ordered (12:32)
== END 2017-05-10 13:42 | disposition home or self-care (01) ==
LOC: M OPP 11:26
DX: R07.89 Other chest pain (principal); K22.70 Barrett's esophagus without dysplasia; K22.8 Other specified diseases of esophagus; I48.91 Unspecified atrial fibrillation; I10 Essential (primary) hypertension; E78.5 Hyperlipidemia, unspecified; K44.9 Diaphragmatic hernia without obstruction or gangrene; R10.13 Epigastric pain; K21.9 Gastro-esophageal reflux disease without esophagitis; Z86.73 Personal history of transient ischemic attack (TIA), and cerebral infarction without residual deficits; J44.9 Chronic obstructive pulmonary disease, unspecified; G47.8 Other sleep disorders; G25.81 Restless legs syndrome; G47.30 Sleep apnea, unspecified; R06.83 Snoring; H25.9 Unspecified age-related cataract; K64.8 Other hemorrhoids; K57.30 Diverticulosis of large intestine without perforation or abscess without bleeding; Z86.010 Personal history of colon polyps; Z88.0 Allergy status to penicillin; Z79.01 Long term (current) use of anticoagulants; Z79.899 Other long term (current) drug therapy; Z80.42 Family history of malignant neoplasm of prostate; Z87.891 Personal history of nicotine dependence
CPT/HCPCS: 43239

== ENCOUNTER 2017-05-23 17:31 | Emergency (ER) | payer MEDICARE | END 2017-05-23 18:50 | disposition home or self-care (01) | LOC: M ED 17:31 | DX: S40.011A Contusion of right shoulder, initial encounter (principal); W00.0XXA Fall on same level due to ice and snow, initial encounter; Y92.098 Other place in other non-institutional residence as the place of occurrence of the external cause; I50.9 Heart failure, unspecified; I48.91 Unspecified atrial fibrillation; I25.2 Old myocardial infarction; Z87.891 Personal history of nicotine dependence; Z88.0 Allergy status to penicillin; Z79.899 Other long term (current) drug therapy; Z79.01 Long term (current) use of anticoagulants | CPT/HCPCS: 73030 ==

== ENCOUNTER → 2017-06-03 | Outpatient (CLI) | payer MEDICARE ==
[2017-06-03 07:46] LABS: PROTHROMBIN TIME 33.4 SECONDS (12.4-14.5)
== END ==
LOC: M LAB 07:01
DX: I48.91 Unspecified atrial fibrillation (principal)
CPT/HCPCS: 85610

== ENCOUNTER → 2017-06-17 | Outpatient (CLI) | payer MEDICARE ==
[2017-06-17 07:56] LABS: INR 1.87; PROTHROMBIN TIME 22.1 SECONDS (12.4-14.5)
== END ==
LOC: M LAB 07:11
DX: I48.1 Persistent atrial fibrillation (principal)
CPT/HCPCS: 85610

== ENCOUNTER → 2017-07-01 | Outpatient (CLI) | payer MEDICARE ==
[2017-07-01 08:42] LABS: INR 3.17
== END ==
LOC: M LAB 07:42
DX: I48.1 Persistent atrial fibrillation (principal); Z79.01 Long term (current) use of anticoagulants
CPT/HCPCS: 85610

== ENCOUNTER → 2017-08-13 | Outpatient (CLI) | payer MEDICARE ==
[2017-08-13 07:31] LABS: INR 3.58; PROTHROMBIN TIME 36.6 SECONDS (12.1-14.4)
== END ==
LOC: M LAB 06:40
DX: I48.1 Persistent atrial fibrillation (principal)
CPT/HCPCS: 85610

== ENCOUNTER → 2017-08-26 | Outpatient (CLI) | payer MEDICARE ==
[2017-08-26 07:17] LABS: INR 3.17; PROTHROMBIN TIME 33.3 SECONDS (12.1-14.4)
== END ==
LOC: M LAB 06:10
DX: I48.1 Persistent atrial fibrillation (principal)
CPT/HCPCS: 85610

== ENCOUNTER → 2017-09-09 | Outpatient (CLI) | payer MEDICARE ==
[2017-09-09 08:07] LABS: INR 2.74; PROTHROMBIN TIME 29.6 SECONDS (12.1-14.4)
== END ==
LOC: M LAB 06:26
DX: Z51.81 Encounter for therapeutic drug level monitoring (principal); Z79.01 Long term (current) use of anticoagulants; I48.1 Persistent atrial fibrillation
CPT/HCPCS: 85610

== ENCOUNTER → 2017-10-14 | Outpatient (CLI) | payer MEDICARE ==
[2017-10-14 10:28] LABS: INR 3.23; PROTHROMBIN TIME 33.7 SECONDS (12.1-14.4)
== END ==
LOC: M LAB 08:37
DX: I48.1 Persistent atrial fibrillation (principal)
CPT/HCPCS: 85610

== ENCOUNTER → 2017-10-28 | Outpatient (CLI) | payer MEDICARE ==
[2017-10-28 07:45] LABS: PROTHROMBIN TIME 27.5 SECONDS (12.1-14.4)
== END ==
LOC: M LAB 06:43
DX: I48.1 Persistent atrial fibrillation (principal)
CPT/HCPCS: 85610

== ENCOUNTER → 2017-11-25 | Outpatient (CLI) | payer MEDICARE ==
[2017-11-25 08:02] LABS: INR 2.32; PROTHROMBIN TIME 25.9 SECONDS (12.1-14.4)
== END ==
LOC: M LAB 06:38
DX: Z79.01 Long term (current) use of anticoagulants (principal); I48.1 Persistent atrial fibrillation
CPT/HCPCS: 85610

== ENCOUNTER → 2018-01-12 | Outpatient (CLI) | payer MEDICARE ==
[2018-01-12 07:22] LABS: ANION GAP 5 MEQ/L (8-16); BLOOD UREA NITROGEN 18 MG/DL (7-18); CALCIUM LEVEL 8.4 MG/DL (8.8-10.2); CARBON DIOXIDE LEVEL 30 MEQ/L (21-32); CHLORIDE LEVEL 106 MEQ/L (98-107); CREATININE FOR GFR 1.15 MG/DL (0.70-1.30); GLOMERULAR FILTRATION RATE > 60.0 (>42); GLUCOSE, FASTING 122 MG/DL (70-100); POTASSIUM SERUM 4.3 MEQ/L (3.5-5.1); SODIUM LEVEL 141 MEQ/L (136-145)
== END ==
LOC: M LAB 06:25
DX: I50.42 Chronic combined systolic (congestive) and diastolic (congestive) heart failure (principal)
CPT/HCPCS: 80048

== ENCOUNTER → 2018-01-24 | Outpatient (CLI) | payer MEDICARE ==
[~2018-01-24] MED LIST changes: +ACET500T15 PO; -ACET50TAOT PO; +COUM7.5T PO; +DILT180C22 PO; +LOSA-4 PO; -LOSA100T36 PO; -SPIR50TA2 PO; +SPIR50TA4 PO
[2018-01-24 07:08] LABS: INR 1.79; PROTHROMBIN TIME 21.1 SECONDS (12.1-14.4)
== END ==
LOC: M LAB 06:15
PROVIDERS: ATTEND Physician Assistant
DX: I48.1 Persistent atrial fibrillation (principal); I48.2 Chronic atrial fibrillation

== ENCOUNTER → 2018-02-09 | Outpatient (CLI) | payer MEDICARE ==
[~2018-02-09] MED LIST changes: -LOSA-4 PO; +LOSA100T50 PO
[2018-02-09 07:11] LABS: INR 1.73; PROTHROMBIN TIME 20.6 SECONDS (12.1-14.4)
== END ==
LOC: M LAB 06:09
PROVIDERS: ATTEND Physician Assistant
DX: I48.2 Chronic atrial fibrillation (principal); I48.1 Persistent atrial fibrillation

== ENCOUNTER → 2018-02-23 | Outpatient (CLI) | payer MEDICARE ==
[2018-02-23 06:58] LABS: INR 2.13; PROTHROMBIN TIME 24.2 SECONDS (12.1-14.4)
== END ==
LOC: M LAB 06:24
PROVIDERS: ATTEND Physician Assistant
DX: I48.2 Chronic atrial fibrillation (principal)

== ENCOUNTER 2018-02-27 12:06 | Emergency (ER) | payer MEDICARE ==
[~2018-02-27] VITALS: Ht 170.2 cm; Wt 109.1 kg
[2018-02-27] MEDS ORDERED: GI COCKTAIL 50ML BTL(HYOSCYAMINE/MAALOX/LIDOCAINE VISCOUS)(1:3:1) PO ONE (12:30)
[2018-02-27] MEDS ORDERED: ASPIRIN 81 MG CHEW TABLET PO ONE (12:30)
[2018-02-27] MEDS ORDERED: ASPIRIN 81 MG CHEW TABLET As Ordered ONE (12:33)
[2018-02-27 12:34] LABS: BASO # 0.1 10^3/uL (0.0-0.2); BASO % 0.5 % (0.0-1.0); EOS # 0.1 10^3/uL (0.0-0.50); EOS % 1.1 % (0.0-3.0); HEMATOCRIT 45.9 % (42.0-52.0); HEMOGLOBIN 15.6 g/dl (13.5-17.5); LYMPH # 2.3 10^3/uL (1.5-4.5); LYMPH % 24.6 % (24.0-44.0); MEAN CORPUSCULAR VOLUME 94.1 fl (80.0-96.0); MONO # 0.9 10^3/uL (0.0-0.8); MONO % 9.5 % (0.0-5.0); NEUTROPHILS # 5.9 10^3/uL (1.8-7.7); NEUTROPHILS % 63.9 % (36.0-66.0); PLATELET COUNT, AUTOMATED 265 10^3/uL (150-450); RED BLOOD COUNT 4.88 10^6/uL (4.30-6.10); WHITE BLOOD COUNT 9.2 10^3/uL (4.0-10.0)
--- NOTE | 2018-02-27 12:47 | ECGEPIP ---
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
[2018-02-27 12:48] LABS: INR 1.76; PROTHROMBIN TIME 20.9 SECONDS (12.1-14.4)
[2018-02-27 12:49] LABS: PARTIAL THROMBOPLASTIN TIME 33.7 SECONDS (25.4-37.6)
[2018-02-27 13:02] LABS: ALBUMIN 3.8 GM/DL (3.2-5.2); ALT/SGPT 52 U/L (12-78); BILIRUBIN,DIRECT 0.3 MG/DL (0.0-0.2); BILIRUBIN,TOTAL 1.2 MG/DL (0.2-1.0); BLOOD UREA NITROGEN 17 MG/DL (7-18); CARBON DIOXIDE LEVEL 28 MEQ/L (21-32); CHLORIDE LEVEL 104 MEQ/L (98-107); CPK CREATINE PHOSPHOKINASE 118 U/L (39-308); GLOMERULAR FILTRATION RATE > 60.0 (>42); GLUCOSE, FASTING 89 MG/DL (70-100); LIPASE 139 U/L (73-393); MB/CK RELATIVE INDEX 1.53 (< OR =4); POTASSIUM SERUM 4.2 MEQ/L (3.5-5.1); SODIUM LEVEL 141 MEQ/L (136-145); TOTAL PROTEIN 8.1 GM/DL (6.4-8.2); TROPONIN I < 0.02 NG/ML (< 0.10)
--- NOTE | 2018-02-27 13:26 | REP ---
CHEST PA AND LATERAL: 02/27/2018. Comparison: CXR 12/23/2017, CT 07/17/2017. Clinical history: Chest pain. Findings: Two-view show the lungs well inflated. There is no pleural effusion, lateral pleural thickening, apical scarring or pneumothorax. No definite infiltrate, atelectasis or mass. Heart size not grossly enlarged. There is no vascular redistribution or edema. The aorta is intact. Airway normal. The bony thorax shows no acute compression deformity. Impression: 1. No acute cardiopulmonary change, stable chest. Electronically Signed by Mika Arellano MD 02/27/2018 04:34 P
[2018-02-27 18:24] LABS: CPK CREATINE PHOSPHOKINASE 100 U/L (39-308); TROPONIN I < 0.02 NG/ML (< 0.10)
[2018-02-27 18:30] VITALS: BP 143/83
--- NOTE | 2018-02-27 19:03 | ECGEPIP ---
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
== END 2018-02-27 18:43 | disposition home or self-care (01) ==
LOC: M ED 12:06
DX: R07.9 Chest pain, unspecified (principal); I50.9 Heart failure, unspecified; I48.91 Unspecified atrial fibrillation; R73.03 Prediabetes; G47.33 Obstructive sleep apnea (adult) (pediatric); K21.9 Gastro-esophageal reflux disease without esophagitis; Z79.899 Other long term (current) drug therapy; Z79.01 Long term (current) use of anticoagulants; Z88.0 Allergy status to penicillin; Z87.891 Personal history of nicotine dependence

== ENCOUNTER → 2018-03-23 | Outpatient (CLI) | payer MEDICARE ==
[2018-03-23 07:26] LABS: INR 1.67
== END ==
LOC: M LAB 06:17
PROVIDERS: ATTEND Physician Assistant
DX: I48.2 Chronic atrial fibrillation (principal); I48.1 Persistent atrial fibrillation

== ENCOUNTER → 2018-04-06 | Outpatient (CLI) | payer MEDICARE ==
[2018-04-06 10:21] LABS: INR 2.22; PROTHROMBIN TIME 25.1 SECONDS (12.1-14.4)
== END ==
LOC: M LAB 09:27
PROVIDERS: ATTEND Physician Assistant
DX: I48.2 Chronic atrial fibrillation (principal); I48.1 Persistent atrial fibrillation

== ENCOUNTER → 2018-05-04 | Outpatient (CLI) | payer MEDICARE ==
[2018-05-04 07:07] LABS: INR 1.48; PROTHROMBIN TIME 18.2 SECONDS (12.1-14.4)
== END ==
LOC: M LAB 06:26
PROVIDERS: ATTEND Physician Assistant
DX: I48.2 Chronic atrial fibrillation (principal); I48.1 Persistent atrial fibrillation

== ENCOUNTER → 2018-05-19 | Outpatient (CLI) | payer MEDICARE ==
[~2018-05-19] MED LIST changes: +AMIO200T22 PO; -AMIO20TA PO; -DILT180C22 PO; +DILT180C78 PO
[2018-05-19 06:58] LABS: INR 1.7; PROTHROMBIN TIME 20.3 SECONDS (12.1-14.4)
== END ==
LOC: M LAB 06:11
PROVIDERS: ATTEND Physician Assistant
DX: I48.2 Chronic atrial fibrillation (principal); Z79.01 Long term (current) use of anticoagulants

== ENCOUNTER → 2018-06-02 | Outpatient (CLI) | payer MEDICARE ==
[2018-06-02 07:00] LABS: INR 2.14; PROTHROMBIN TIME 24.3 SECONDS (12.1-14.4)
== END ==
LOC: M LAB 06:04
PROVIDERS: ATTEND Physician Assistant
DX: I48.2 Chronic atrial fibrillation (principal); Z79.01 Long term (current) use of anticoagulants

== ENCOUNTER → 2018-06-29 | Outpatient (CLI) | payer MEDICARE ==
[2018-06-29 10:18] LABS: INR 2.26; PROTHROMBIN TIME 25.4 SECONDS (12.1-14.4)
== END ==
LOC: M LAB 09:24
PROVIDERS: ATTEND Physician Assistant
DX: I48.2 Chronic atrial fibrillation (principal); I48.1 Persistent atrial fibrillation

== ENCOUNTER → 2018-07-27 | Outpatient (CLI) | payer MEDICARE ==
[2018-07-27 09:45] LABS: INR 2.38; PROTHROMBIN TIME 25.8 SECONDS (11.8-14.0)
== END ==
LOC: M LAB 09:07
PROVIDERS: ATTEND Physician Assistant
DX: I48.2 Chronic atrial fibrillation (principal); I48.1 Persistent atrial fibrillation

== ENCOUNTER → 2018-08-24 | Outpatient (CLI) | payer MEDICARE ==
[~2018-08-24] MED LIST changes: -OMEP20CA3 PO; +OMEP20CA4 PO
[2018-08-24 10:57] LABS: INR 2.28; PROTHROMBIN TIME 24.9 SECONDS (11.8-14.0)
== END ==
LOC: M LAB 10:04
PROVIDERS: ATTEND Physician Assistant
DX: I48.2 Chronic atrial fibrillation (principal); I48.1 Persistent atrial fibrillation

== ENCOUNTER → 2018-09-21 | Outpatient (CLI) | payer MEDICARE ==
[2018-09-21 09:29] LABS: INR 2.76; PROTHROMBIN TIME 29.1 SECONDS (11.8-14.0)
== END ==
LOC: M LAB 08:40
PROVIDERS: ATTEND Physician Assistant
DX: I48.2 Chronic atrial fibrillation (principal)

== ENCOUNTER → 2018-10-20 | Outpatient (CLI) | payer MEDICARE ==
[2018-10-20 10:13] LABS: INR 3.27; PROTHROMBIN TIME 33.3 SECONDS (11.8-14.0)
== END ==
LOC: M LAB 09:08
PROVIDERS: ATTEND Physician Assistant
DX: I48.2 Chronic atrial fibrillation (principal)

== ENCOUNTER → 2018-11-03 | Outpatient (CLI) | payer MEDICARE ==
[~2018-11-03] MED LIST changes: -MECL12.575 PO; +MECL12.589 PO; +OMEP1CAP73 PO; -OMEP20CA4 PO; +VENTAER INH; +WARF4TAB51 PO
[2018-11-03 10:38] LABS: INR 2.41; PROTHROMBIN TIME 26.1 SECONDS (11.8-14.0)
== END ==
LOC: M LAB 08:42
PROVIDERS: ATTEND Physician Assistant
DX: I48.1 Persistent atrial fibrillation (principal); I48.2 Chronic atrial fibrillation

== ENCOUNTER → 2018-12-05 | Outpatient (CLI) | payer MEDICARE ==
[~2018-12-05] MED LIST changes: +MECL12.575 PO; -MECL12.589 PO; -OMEP1CAP73 PO; +OMEP20CA4 PO; -VENTAER INH; -WARF4TAB51 PO
[2018-12-05 08:17] LABS: INR 2.16; PROTHROMBIN TIME 23.9 SECONDS (11.8-14.0)
== END ==
LOC: M LAB 07:43
PROVIDERS: ATTEND Physician Assistant
DX: I48.20 Chronic atrial fibrillation, unspecified (principal); Z79.01 Long term (current) use of anticoagulants

== ENCOUNTER → 2019-01-02 | Outpatient (CLI) | payer MEDICARE ==
[~2019-01-02] MED LIST changes: +VENTAER INH; +WARF4TAB51 PO
[2019-01-02 10:21] LABS: INR 2.15; PROTHROMBIN TIME 23.8 SECONDS (11.8-14.0)
== END ==
LOC: M LAB 09:26
PROVIDERS: ATTEND Physician Assistant
DX: I48.20 Chronic atrial fibrillation, unspecified (principal)

== ENCOUNTER 2019-01-10 10:27 | Emergency (ER) | payer MEDICARE ==
[~2019-01-10] VITALS: Ht 170.2 cm; Wt 106.8 kg
[~2019-01-10 10:27] MED LIST changes: -VENTAER INH; -WARF4TAB51 PO
[2019-01-10] MEDS ORDERED: ASPIRIN 325 MG TAB PO ONE (10:45)
[2019-01-10] MEDS ORDERED: GI COCKTAIL 50ML BTL(HYOSCYAMINE/MAALOX/LIDOCAINE VISCOUS)(1:3:1) PO ONE (10:45)
[2019-01-10] MEDS ORDERED: ASPIRIN 81 MG CHEW TABLET As Ordered ONE (10:49)
[2019-01-10 10:57] LABS: BASO # 0.1 10^3/uL (0.0-0.2); BASO % 0.7 % (0.0-1.0); EOS # 0.2 10^3/uL (0.0-0.5); EOS % 1.8 % (0.0-3.0); HEMATOCRIT 48.4 % (42.0-52.0); HEMOGLOBIN 15.6 g/dl (13.5-17.5); LYMPH # 2.3 10^3/uL (1.5-5.0); MEAN CORPUSCULAR HEMOGLOBIN 31.7 pg (27.0-33.0); MEAN CORPUSCULAR HGB CONC 32.2 g/dl (32.0-36.5); MEAN CORPUSCULAR VOLUME 98.4 fl (80.0-96.0); MONO # 0.9 10^3/uL (0.0-0.8); MONO % 10.4 % (0.0-5.0); NEUTROPHILS % 59.7 % (36.0-66.0); PLATELET COUNT, AUTOMATED 250 10^3/uL (150-450); RED BLOOD COUNT 4.92 10^6/uL (4.30-6.10); WHITE BLOOD COUNT 8.3 10^3/uL (4.0-10.0)
[2019-01-10] MEDS ORDERED: ASPIRIN 81 MG CHEW TABLET PO ONE (11:00)
--- NOTE | 2019-01-10 11:03 | REP ---
Single view chest: 01/10/2019. Indication: Chest pain. Comparison: 02/27/2018. Findings: There is no evidence of airspace consolidation. Borderline cardiomegaly is noted. There is no pleural effusion or pneumothorax. The findings are essentially stable compared to the previous study. Impression: No acute cardiopulmonary process. Electronically Signed by Isai Turner DO 01/10/2019 10:54 A
[2019-01-10 11:08] LABS: PARTIAL THROMBOPLASTIN TIME 36.1 SECONDS (25.0-38.4)
[2019-01-10] MEDS ORDERED: WARF4TAB51 PO (11:09)
[2019-01-10] MEDS ORDERED: VENTAER INH (11:09)
[2019-01-10 11:12] LABS: INR 2.81; PROTHROMBIN TIME 29.5 SECONDS (11.8-14.0)
[2019-01-10 11:32] LABS: ALBUMIN 3.6 GM/DL (3.2-5.2); ALT/SGPT 55 U/L (12-78); BILIRUBIN,DIRECT 0.2 MG/DL (0.0-0.2); BILIRUBIN,TOTAL 0.8 MG/DL (0.2-1.0); BLOOD UREA NITROGEN 16 MG/DL (7-18); CALCIUM LEVEL 8.9 MG/DL (8.8-10.2); CARBON DIOXIDE LEVEL 29 MEQ/L (21-32); CHLORIDE LEVEL 105 MEQ/L (98-107); CK-MB VALUE MASS 1.5 NG/ML (<3.6); CPK CREATINE PHOSPHOKINASE 117 U/L (39-308); CREATININE FOR GFR 1.19 MG/DL (0.70-1.30); FREE T4 1.06 NG/DL (0.76-1.46); GLOMERULAR FILTRATION RATE > 60.0 (>42); GLUCOSE, FASTING 111 MG/DL (70-100); LIPASE 127 U/L (73-393); MB/CK RELATIVE INDEX 1.28 (< OR =4); NT-PRO BNP 111 PG/ML (<125); POTASSIUM SERUM 4.3 MEQ/L (3.5-5.1); SODIUM LEVEL 141 MEQ/L (136-145); TOTAL PROTEIN 7.6 GM/DL (6.4-8.2); TROPONIN I < 0.02 NG/ML (< 0.10)
[2019-01-10 14:17] LABS: CK-MB VALUE MASS 1.6 NG/ML (<3.6); CPK CREATINE PHOSPHOKINASE 110 U/L (39-308); MB/CK RELATIVE INDEX 1.45 (< OR =4); TROPONIN I < 0.02 NG/ML (< 0.10)
[2019-01-10 14:29] VITALS: BP 126/70
--- NOTE | 2019-01-10 17:12 | ECGEPIP ---
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
--- NOTE | 2019-01-11 15:33 | ECGEPIP ---
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
== END 2019-01-10 14:35 | disposition home or self-care (01) ==
LOC: M ED 10:27
DX: K21.9 Gastro-esophageal reflux disease without esophagitis (principal); R07.89 Other chest pain; I48.91 Unspecified atrial fibrillation; I45.89 Other specified conduction disorders; R94.31 Abnormal electrocardiogram [ECG] [EKG]; I25.10 Atherosclerotic heart disease of native coronary artery without angina pectoris; I50.9 Heart failure, unspecified; G47.33 Obstructive sleep apnea (adult) (pediatric); Z87.891 Personal history of nicotine dependence; Z79.01 Long term (current) use of anticoagulants; Z79.899 Other long term (current) drug therapy; Z88.0 Allergy status to penicillin

== ENCOUNTER → 2019-01-30 | Outpatient (CLI) | payer MEDICARE ==
[~2019-01-30] MED LIST changes: +OMEP-172 PO; -OMEP20CA4 PO; +VENTAER INH; +WARF4TAB51 PO
[2019-01-30 09:04] LABS: INR 2.16; PROTHROMBIN TIME 23.9 SECONDS (11.8-14.0)
== END ==
LOC: M LAB 08:13
PROVIDERS: ATTEND Physician Assistant
DX: I48.20 Chronic atrial fibrillation, unspecified (principal); Z79.01 Long term (current) use of anticoagulants

== ENCOUNTER → 2019-02-27 | Outpatient (CLI) | payer MEDICARE ==
[~2019-02-27] MED LIST changes: -MECL12.575 PO; +MECL12.589 PO; -OMEP-172 PO; +OMEP1CAP73 PO
[2019-02-27 10:09] LABS: INR 2.07; PROTHROMBIN TIME 23.1 SECONDS (11.8-14.0)
== END ==
LOC: M LAB 09:10
PROVIDERS: ATTEND Physician Assistant
DX: I48.20 Chronic atrial fibrillation, unspecified (principal)

== ENCOUNTER 2019-03-27 07:34 | Day surgery (SDC) | payer MEDICARE ==
[~2019-03-27] VITALS: Ht 170.2 cm; Wt 105.2 kg
[~2019-03-27 07:34] MED LIST changes: +LIDOCAINE 2% INJ 100 MG/5 ML SDV (FOR ANES.) As Ordered ONE; +MAGN1TAB26 PO; +NS 1,000 ML IV ONE; +WARF-18 PO; +propofoL 200 MG/20 ML VIAL As Ordered ONE
--- NOTE | 2019-03-27 09:07 | ROOR ---
Patient Name: Rocky Lazo Procedure Date: 03/27/2019 8:38 AM Date of : 1945 Age: 73 Room: [facility] Gender: Male Note Status: Finalized Procedure: Total Colonoscopy to Cecum + Biopsy Polypectomy Indications: Colon cancer screening in patient at increased risk: Family history of 1st-degree relative with colon polyps, Last colonoscopy: 2013 Providers: Alex Wolf MD Referring MD: JENNIFER MÁRQUEZ MD Requesting Provider: Medicines: Monitored Anesthesia Care Complications: No immediate complications. Procedure: Pre-Anesthesia Assessment: - The heart rate, respiratory rate, oxygen saturations, blood pressure, adequacy of pulmonary ventilation, and response to care were monitored throughout the procedure. The Colonoscope was introduced through the anus and advanced to the cecum, identified by appendiceal orifice and ileocecal valve. The colonoscopy was performed without difficulty. The patient tolerated the procedure well. The quality of the bowel preparation was excellent. Findings: The perianal and digital rectal examinations were normal. Non-bleeding internal hemorrhoids were found during retroflexion. The hemorrhoids were small and Grade I (internal hemorrhoids that do not prolapse). Two sessile polyps were found at 10 cm proximal to the anus. The polyps were small in size. These polyps were removed with a cold biopsy forceps. Resection and retrieval were complete. The exam was otherwise without abnormality on direct and retroflexion views. Impression: - Non-bleeding internal hemorrhoids. - Two small polyps at 10 cm proximal to the anus, removed with a cold biopsy forceps. Resected and retrieved. - The examination was otherwise normal on direct and retroflexion views. - The exam was otherwise normal to the cecum. Recommendation: - Patient has a contact number available for emergencies. The signs and symptoms of potential delayed complications were discussed with the patient. Return to normal activities tomorrow. Written discharge instructions were provided to the patient. - High fiber diet. - Discharge patient to home. - Continue present medications. - Await pathology results. - Telephone GI clinic for pathology results in 1 week. - Repeat colonoscopy in 5 years for surveillance based on pathology results. - Return to referring physician. - Resume Coumadin (warfarin) at prior dose today. - The findings and recommendations were discussed with the patient's family. Alex Wolf MD Alex Wolf MD 03/27/2019 9:07:13 AM Electronically signed by Alex Wolf MD Number of Addenda: 0 Note Initiated On: 03/27/2019 8:38 AM Estimated Blood Loss: Estimated blood loss: none.
[2019-03-27 09:35] VITALS: BP 130/85
== END 2019-03-27 09:37 | disposition home or self-care (01) ==
LOC: M OPP 07:34
PROVIDERS: ATTEND Internal Medicine Gastroenterology
DX: Z12.11 Encounter for screening for malignant neoplasm of colon (principal); K64.0 First degree hemorrhoids; K63.5 Polyp of colon; K21.9 Gastro-esophageal reflux disease without esophagitis; I48.91 Unspecified atrial fibrillation; I25.2 Old myocardial infarction; E11.9 Type 2 diabetes mellitus without complications; G47.30 Sleep apnea, unspecified; Z79.899 Other long term (current) drug therapy; Z88.0 Allergy status to penicillin; Z87.891 Personal history of nicotine dependence

== ENCOUNTER → 2019-03-29 | Outpatient (CLI) | payer MEDICARE ==
[~2019-03-29] MED LIST changes: -LIDOCAINE 2% INJ 100 MG/5 ML SDV (FOR ANES.) As Ordered ONE; -NS 1,000 ML IV ONE; -propofoL 200 MG/20 ML VIAL As Ordered ONE
[2019-03-29 11:32] LABS: INR 1.25; PROTHROMBIN TIME 15.4 SECONDS (11.8-14.0)
== END ==
LOC: M LAB 10:42
PROVIDERS: ATTEND Physician Assistant
DX: I48.20 Chronic atrial fibrillation, unspecified (principal)

== ENCOUNTER → 2019-04-05 | Outpatient (CLI) | payer MEDICARE ==
[2019-04-05 08:50] LABS: INR 2.03; PROTHROMBIN TIME 22.7 SECONDS (11.8-14.0)
== END ==
LOC: M LAB 08:09
PROVIDERS: ATTEND Physician Assistant
DX: Z51.81 Encounter for therapeutic drug level monitoring (principal); Z79.01 Long term (current) use of anticoagulants; I48.20 Chronic atrial fibrillation, unspecified

== ENCOUNTER → 2019-05-03 | Outpatient (CLI) | payer MEDICARE ==
[2019-05-03 08:34] LABS: INR 2.48; PROTHROMBIN TIME 26.6 SECONDS (11.8-14.0)
== END ==
LOC: M LAB 08:02
PROVIDERS: ATTEND Physician Assistant
DX: Z51.81 Encounter for therapeutic drug level monitoring (principal); Z79.01 Long term (current) use of anticoagulants; I48.20 Chronic atrial fibrillation, unspecified

== ENCOUNTER → 2019-05-31 | Outpatient (CLI) | payer MEDICARE ==
[2019-05-31 09:36] LABS: INR 2.78; PROTHROMBIN TIME 29.2 SECONDS (11.8-14.0)
== END ==
LOC: M LAB 08:49
PROVIDERS: ATTEND Physician Assistant
DX: I48.19 Other persistent atrial fibrillation (principal)

== ENCOUNTER 2019-07-23 10:34 | Emergency (ER) | payer MEDICARE ==
[~2019-07-23] VITALS: Ht 170.2 cm; Wt 111.1 kg
[~2019-07-23 10:34] MED LIST changes: -COUM7.5T PO; +COUM7.5T6 PO
[2019-07-23] MEDS ORDERED: DILT240C83 (10:46)
[2019-07-23 11:57] LABS: BASO # 0.1 10^3/uL (0.0-0.2); BASO % 0.7 % (0.0-1.0); EOS # 0.1 10^3/uL (0.0-0.5); EOS % 0.8 % (0.0-3.0); HEMATOCRIT 41.9 % (42.0-52.0); HEMOGLOBIN 13.8 g/dl (13.5-17.5); LYMPH # 2.1 10^3/uL (1.5-5.0); LYMPH % 23.9 % (24.0-44.0); MEAN CORPUSCULAR HEMOGLOBIN 31.9 pg (27.0-33.0); MEAN CORPUSCULAR HGB CONC 32.9 g/dl (32.0-36.5); MONO # 0.9 10^3/uL (0.0-0.8); MONO % 9.7 % (0.0-5.0); NEUTROPHILS # 5.7 10^3/uL (1.5-8.5); NEUTROPHILS % 64.6 % (36.0-66.0); PLATELET COUNT, AUTOMATED 214 10^3/uL (150-450); RED BLOOD COUNT 4.32 10^6/uL (4.30-6.10); WHITE BLOOD COUNT 8.8 10^3/uL (4.0-10.0)
[2019-07-23 12:35] LABS: ALBUMIN 3.6 GM/DL (3.2-5.2); ALT/SGPT 36 U/L (12-78); BILIRUBIN,DIRECT 0.2 MG/DL (0.0-0.2); BILIRUBIN,TOTAL 0.7 MG/DL (0.2-1.0); CK-MB VALUE MASS 1.5 NG/ML (<3.6); CPK CREATINE PHOSPHOKINASE 97 U/L (39-308); MAGNESIUM LEVEL 2.1 MG/DL (1.8-2.4); MB/CK RELATIVE INDEX 1.55 (< OR =4); NT-PRO BNP 478 PG/ML (<125); TOTAL PROTEIN 6.9 GM/DL (6.4-8.2); TROPONIN I < 0.02 NG/ML (< 0.10)
[2019-07-23] MEDS ORDERED: FUROSEMIDE 40MG/4ML VIAL (J1940) IV ONE (13:00)
--- NOTE | 2019-07-23 13:33 | REP ---
Single view chest: 07/23/2019. Indication: Dyspnea. Cough. Comparison: 01/10/2019. Findings: The lungs are clear. There is no pleural effusion or pneumothorax. The cardiac silhouette is borderline prominent. Impression: Clear lungs. Electronically Signed by Isai Turner DO 07/23/2019 01:24 P
[2019-07-23 15:45] VITALS: BP 129/81
--- NOTE | 2019-07-23 16:12 | ECGEPIP ---
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
== END 2019-07-23 16:17 | disposition home or self-care (01) ==
LOC: M ED 10:34
DX: I50.9 Heart failure, unspecified (principal); I48.91 Unspecified atrial fibrillation; R94.31 Abnormal electrocardiogram [ECG] [EKG]; I25.10 Atherosclerotic heart disease of native coronary artery without angina pectoris; K21.9 Gastro-esophageal reflux disease without esophagitis; G47.33 Obstructive sleep apnea (adult) (pediatric); Z87.891 Personal history of nicotine dependence; Z79.01 Long term (current) use of anticoagulants; Z79.899 Other long term (current) drug therapy; Z88.0 Allergy status to penicillin
CPT/HCPCS: 71045; 80047; 80076; 82550; 82553; 83605; 83735; 83880; 84436; 84443; 84484; 85025; 93005; 93041; 94760; 96374; 99285; J1940

== ENCOUNTER → 2019-07-26 | Outpatient (CLI) | payer MEDICARE ==
[~2019-07-26] MED LIST changes: -AMIO200T PO; +AMIO200T3 PO; +ASPI-546 PO; -ASPI1TAB15 PO; +DIGO0.123; +DILT180C28; +DILT240C83; -MECL12.589 PO; +MECL12.590 PO; +[UNRECOGNIZED DRUG - REMARK] XX
[2019-07-26 10:22] LABS: INR 2.39; PROTHROMBIN TIME 25.9 SECONDS (11.8-14.0)
== END ==
LOC: M LAB 09:32
PROVIDERS: ATTEND Physician Assistant
DX: Z51.81 Encounter for therapeutic drug level monitoring (principal); Z79.01 Long term (current) use of anticoagulants; I48.20 Chronic atrial fibrillation, unspecified

== ENCOUNTER → 2019-08-23 | Outpatient (CLI) | payer MEDICARE ==
[~2019-08-23] MED LIST changes: +MECL12.589 PO; -MECL12.590 PO
[2019-08-23 11:54] LABS: INR 2.58; PROTHROMBIN TIME 27.5 SECONDS (11.8-14.0)
== END ==
LOC: M LAB 10:44
PROVIDERS: ATTEND Physician Assistant
DX: I48.20 Chronic atrial fibrillation, unspecified (principal); Z79.01 Long term (current) use of anticoagulants

== ENCOUNTER → 2019-09-20 | Outpatient (CLI) | payer MEDICARE ==
[2019-11-12 10:03] LABS: INR 2.45; PROTHROMBIN TIME 27.1 SECONDS (12.5-14.3)
== END ==
LOC: M LAB 15:38
PROVIDERS: ATTEND Physician Assistant
DX: Z51.81 Encounter for therapeutic drug level monitoring (principal); Z79.01 Long term (current) use of anticoagulants; I48.20 Chronic atrial fibrillation, unspecified

== ENCOUNTER 2019-10-02 08:09 | Emergency (ER) | payer MEDICARE ==
[~2019-10-02] VITALS: Ht 170.2 cm; Wt 107.9 kg
[~2019-10-02 08:09] MED LIST changes: -DIGO0.123; -DILT180C28; -[UNRECOGNIZED DRUG - REMARK] XX
[2019-10-02] MEDS ORDERED: DILT180C28 (08:18)
[2019-10-02] MEDS ORDERED: DIGO0.123 (08:18)
[2019-10-02] MEDS ORDERED: MECLIZINE 25 MG TABLET PO ONE (09:00)
--- NOTE | 2019-10-02 09:27 | REPVR ---
PROCEDURE INFORMATION: Exam: CT Head Without Contrast Exam date and time: 10/02/2019 8:56 AM Age: 74 years old Clinical indication: Dizziness TECHNIQUE: Imaging protocol: Computed tomography of the head without contrast. Radiation optimization: All CT scans at this facility use at least one of these dose optimization techniques: automated exposure control; mA and/or kV adjustment per patient size (includes targeted exams where dose is matched to clinical indication); or iterative reconstruction. COMPARISON: CT Head without contrast 02/11/2016 9:05 AM FINDINGS: Brain: There is no acute intracranial hemorrhage or mass effect. Mild diffuse volume loss is within the range of normal for patient age. There are small vessel ischemic changes within the periventricular and subcortical white matter, but the normal stallings/white matter delineation is maintained. Ventricles: Normal. No ventriculomegaly. Bones/joints: Unremarkable. No acute fracture. Sinuses: Visualized sinuses are unremarkable. No fluid levels. Mastoid air cells: Visualized mastoid air cells are well aerated. Soft tissues: Unremarkable. IMPRESSION: No acute hemorrhage or edema. Electronically signed by: Padmini Rogers On 10/02/2019 09:27:13 AM
[2019-10-02 09:40] LABS: BASO # 0.1 10^3/uL (0.0-0.2); BASO % 0.7 % (0.0-1.0); EOS # 0.2 10^3/uL (0.0-0.5); EOS % 2.5 % (0.0-3.0); HEMATOCRIT 45.2 % (42.0-52.0); HEMOGLOBIN 15.3 g/dl (13.5-17.5); LYMPH # 1.7 10^3/uL (1.5-5.0); LYMPH % 20.4 % (24.0-44.0); MEAN CORPUSCULAR HEMOGLOBIN 32.6 pg (27.0-33.0); MEAN CORPUSCULAR HGB CONC 33.8 g/dl (32.0-36.5); MEAN CORPUSCULAR VOLUME 96.2 fl (80.0-96.0); MONO # 0.7 10^3/uL (0.0-0.8); MONO % 8.2 % (0.0-5.0); NEUTROPHILS # 5.7 10^3/uL (1.5-8.5); NEUTROPHILS % 67.7 % (36.0-66.0); PLATELET COUNT, AUTOMATED 235 10^3/uL (150-450); WHITE BLOOD COUNT 8.5 10^3/uL (4.0-10.0)
[2019-10-02 09:52] LABS: INR 2.11; PROTHROMBIN TIME 24.1 SECONDS (11.8-14.0)
[2019-10-02 10:11] LABS: BLOOD UREA NITROGEN 13 MG/DL (7-18); CALCIUM LEVEL 8.8 MG/DL (8.8-10.2); CARBON DIOXIDE LEVEL 32 MEQ/L (21-32); CHLORIDE LEVEL 107 MEQ/L (98-107); CK-MB VALUE MASS 1.4 NG/ML (<3.6); CPK CREATINE PHOSPHOKINASE 76 U/L (39-308); CREATININE FOR GFR 1.01 MG/DL (0.70-1.30); GLOMERULAR FILTRATION RATE > 60.0 (>42); GLUCOSE, FASTING 138 MG/DL (70-100); MB/CK RELATIVE INDEX 1.84 (< OR =4); POTASSIUM SERUM 4.5 MEQ/L (3.5-5.1); SODIUM LEVEL 140 MEQ/L (136-145); TROPONIN I < 0.02 NG/ML (< 0.10)
[2019-10-02] MEDS ORDERED: [UNRECOGNIZED DRUG - REMARK] XX (12:22)
[2019-10-02 12:46] VITALS: BP 154/72
--- NOTE | 2019-10-19 08:04 | ECGEPIP ---
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
== END 2019-10-02 12:42 | disposition home or self-care (01) ==
LOC: M ED 08:09
DX: I48.91 Unspecified atrial fibrillation (principal); R94.31 Abnormal electrocardiogram [ECG] [EKG]; H81.10 Benign paroxysmal vertigo, unspecified ear; J44.9 Chronic obstructive pulmonary disease, unspecified; G47.33 Obstructive sleep apnea (adult) (pediatric); K21.9 Gastro-esophageal reflux disease without esophagitis; Z79.01 Long term (current) use of anticoagulants; Z79.899 Other long term (current) drug therapy; Z88.0 Allergy status to penicillin

== ENCOUNTER → 2019-10-25 | Outpatient (CLI) | payer MEDICARE ==
[~2019-10-25] MED LIST changes: +DIGO0.123; +DILT180C28; +[UNRECOGNIZED DRUG - REMARK] XX
[2019-10-25 11:25] LABS: INR 2.17; PROTHROMBIN TIME 24.6 SECONDS (11.8-14.0)
== END ==
LOC: M LAB 09:17
PROVIDERS: ATTEND Physician Assistant
DX: I48.20 Chronic atrial fibrillation, unspecified (principal); Z79.01 Long term (current) use of anticoagulants

== ENCOUNTER → 2019-11-23 | Outpatient (CLI) | payer MEDICARE ==
[2019-11-23 11:00] LABS: INR 2.37; PROTHROMBIN TIME 26.4 SECONDS (12.5-14.3)
== END ==
LOC: M LAB 09:20
PROVIDERS: ATTEND Physician Assistant
DX: Z79.01 Long term (current) use of anticoagulants (principal)

== ENCOUNTER → 2019-12-21 | Outpatient (CLI) | payer MEDICARE ==
[2019-12-21 10:36] LABS: INR 1.98; PROTHROMBIN TIME 22.9 SECONDS (12.5-14.3)
== END ==
LOC: M LAB 09:32
PROVIDERS: ATTEND Physician Assistant
DX: Z51.81 Encounter for therapeutic drug level monitoring (principal); Z79.01 Long term (current) use of anticoagulants; I48.20 Chronic atrial fibrillation, unspecified

== ENCOUNTER → 2020-01-18 | Outpatient (CLI) | payer MEDICARE ==
[~2020-01-18] MED LIST changes: -MECL12.589 PO; +MECL12.590 PO
[2020-01-18 11:00] LABS: INR 2.41; PROTHROMBIN TIME 26.8 SECONDS (12.5-14.3)
== END ==
LOC: M LAB 10:11
PROVIDERS: ATTEND Physician Assistant
DX: Z79.01 Long term (current) use of anticoagulants (principal)

== ENCOUNTER → 2020-02-15 | Outpatient (CLI) | payer MEDICARE ==
[2020-02-15 11:14] LABS: INR 2.42; PROTHROMBIN TIME 26.9 SECONDS (12.5-14.3)
== END ==
LOC: M LAB 10:34
PROVIDERS: ATTEND Physician Assistant
DX: Z51.81 Encounter for therapeutic drug level monitoring (principal); Z79.01 Long term (current) use of anticoagulants

== ENCOUNTER → 2020-03-15 | Outpatient (CLI) | payer MEDICARE ==
[2020-03-15 14:26] LABS: INR 2.23; PROTHROMBIN TIME 25.2 SECONDS (12.5-14.3)
== END ==
LOC: M LAB 13:28
PROVIDERS: ATTEND Physician Assistant
DX: I48.21 Permanent atrial fibrillation (principal); Z79.01 Long term (current) use of anticoagulants

== ENCOUNTER → 2020-04-10 | Outpatient (CLI) | payer MEDICARE ==
[~2020-04-10] MED LIST changes: +MECL-136 PO; -MECL12.590 PO
[2020-04-10 08:53] LABS: INR 2.67
== END ==
LOC: M LAB 08:02
PROVIDERS: ATTEND Physician Assistant
DX: Z51.81 Encounter for therapeutic drug level monitoring (principal); Z79.01 Long term (current) use of anticoagulants

== ENCOUNTER → 2020-05-13 | Outpatient (CLI) | payer MEDICARE ==
[2020-05-13 07:44] LABS: INR 2.43
== END ==
LOC: M LAB 06:40
PROVIDERS: ATTEND Physician Assistant
DX: Z79.01 Long term (current) use of anticoagulants (principal)

== ENCOUNTER → 2020-06-13 | Outpatient (CLI) | payer MEDICARE ==
[2020-06-13 07:12] LABS: INR 2.69; PROTHROMBIN TIME 29.2 SECONDS (12.5-14.3)
== END ==
LOC: M LAB 06:41
PROVIDERS: ATTEND Physician Assistant
DX: Z51.81 Encounter for therapeutic drug level monitoring (principal); Z79.01 Long term (current) use of anticoagulants

== ENCOUNTER → 2020-07-11 | Outpatient (CLI) | payer MEDICARE ==
[2020-07-11 07:32] LABS: INR 2.06; PROTHROMBIN TIME 23.7 SECONDS (12.5-14.3)
== END ==
LOC: M LAB 06:45
PROVIDERS: ATTEND Physician Assistant
DX: Z51.81 Encounter for therapeutic drug level monitoring (principal); Z79.01 Long term (current) use of anticoagulants

== ENCOUNTER 2020-07-31 11:26 | Emergency (ER) | payer MEDICARE ==
[~2020-07-31] VITALS: Ht 170.2 cm; Wt 97.1 kg
[2020-07-31 12:04] LABS: BASO % 0.3 % (0.0-1.0); EOS # 0.1 10^3/uL (0.0-0.5); EOS % 0.9 % (0.0-3.0); HEMATOCRIT 47.2 % (42.0-52.0); HEMOGLOBIN 15.5 g/dl (13.5-17.5); LYMPH # 2.3 10^3/uL (1.5-5.0); LYMPH % 16.3 % (24.0-44.0); MEAN CORPUSCULAR HEMOGLOBIN 31.3 pg (27.0-33.0); MEAN CORPUSCULAR HGB CONC 32.8 g/dl (32.0-36.5); MEAN CORPUSCULAR VOLUME 95.4 fl (80.0-96.0); MONO # 1.1 10^3/uL (0.0-0.8); MONO % 7.9 % (2.0-8.0); NEUTROPHILS # 10.6 10^3/uL (1.5-8.5); NEUTROPHILS % 74.2 % (36.0-66.0); PLATELET COUNT, AUTOMATED 243 10^3/uL (150-450); RED BLOOD COUNT 4.95 10^6/uL (4.30-6.10); WHITE BLOOD COUNT 14.3 10^3/uL (4.0-10.0)
[2020-07-31 12:15] LABS: INR 2.1
[2020-07-31 12:31] LABS: ALT/SGPT 33 U/L (12-78); BILIRUBIN,DIRECT 0.4 MG/DL (0.0-0.2); BILIRUBIN,TOTAL 1.4 MG/DL (0.2-1.0); BLOOD UREA NITROGEN 11 MG/DL (7-18); CALCIUM LEVEL 9.2 MG/DL (8.8-10.2); CARBON DIOXIDE LEVEL 31 MEQ/L (21-32); CHLORIDE LEVEL 104 MEQ/L (98-107); CREATININE FOR GFR 0.95 MG/DL (0.70-1.30); GLOMERULAR FILTRATION RATE > 60.0 (>42); GLUCOSE, FASTING 103 MG/DL (70-100); LIPASE 161 U/L (73-393); SODIUM LEVEL 140 MEQ/L (136-145); TOTAL PROTEIN 7.5 GM/DL (6.4-8.2)
--- NOTE | 2020-07-31 13:34 | REP ---
INDICATION: epigastric pain. COMPARISON: Portable chest of 07/23/2019 FINDINGS: Supine and upright views of the abdomen show the intestinal gas pattern to be nonspecific. Gas and stool is seen throughout the colon within the rectosigmoid region. The organ silhouettes insofar as delineated appear unremarkable. No abdominal calcific densities are seen within the abdomen or pelvis. The accompanying frontal view the chest shows a subtle potential patchy right upper lobe opacity representing a change from prior exams. The lung keen are otherwise clear. The pleural angles are sharp. The heart is not enlarged. The osseous structures stable. IMPRESSION: Subtle but new potential right upper lobe opacity etiology uncertain possible early pneumonia. Follow-up is recommended. There is no plain radiographic evidence of acute intra-abdominal disease. Findings as described above. <Electronically signed by Elvin Stokes > 07/31/20 [id number]
[2020-07-31] MEDS ORDERED: GAVICHW5 PO (15:36)
[2020-07-31] MEDS ORDERED: CARA1TAB6 PO (15:36)
[2020-07-31 15:54] VITALS: BP 119/73
--- NOTE | 2020-08-01 07:15 | ECGEPIP ---
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
--- NOTE | 2020-08-01 11:37 | ED PDOC ---
Post-Departure Follow-Up radiology report faxed to Cee Rebolledo MD Aug 01, 2020 11:37
== END 2020-07-31 15:57 | disposition home or self-care (01) ==
LOC: M ED 11:26
DX: K21.9 Gastro-esophageal reflux disease without esophagitis (principal); I48.91 Unspecified atrial fibrillation; Z98.61 Coronary angioplasty status; Z86.73 Personal history of transient ischemic attack (TIA), and cerebral infarction without residual deficits; I50.9 Heart failure, unspecified; I25.2 Old myocardial infarction; E78.00 Pure hypercholesterolemia, unspecified; I10 Essential (primary) hypertension; J44.9 Chronic obstructive pulmonary disease, unspecified; G47.30 Sleep apnea, unspecified; R73.03 Prediabetes; M48.061 Spinal stenosis, lumbar region without neurogenic claudication; Z79.01 Long term (current) use of anticoagulants; Z79.899 Other long term (current) drug therapy; Z88.0 Allergy status to penicillin

== ENCOUNTER → 2020-08-09 | Outpatient (CLI) | payer MEDICARE ==
[~2020-08-09] MED LIST changes: +CARA1TAB6 PO; +GAVICHW5 PO
[2020-08-09 06:40] LABS: INR 2.16; PROTHROMBIN TIME 24.6 SECONDS (12.5-14.3)
== END ==
LOC: M LAB 06:05
PROVIDERS: ATTEND Physician Assistant
DX: Z51.81 Encounter for therapeutic drug level monitoring (principal); Z79.01 Long term (current) use of anticoagulants

== ENCOUNTER 2020-08-19 09:05 | Inpatient (IN) | payer MEDICARE ==
[~2020-08-19] VITALS: Ht 170.2 cm; Wt 89.7 kg
[~2020-08-19 09:05] MED LIST changes: -DIGO0.123; +DIGO0.123 PO; -DILT180C28; +DILT180C28 PO
[2020-08-19 11:37] LABS: BASO # 0.1 10^3/uL (0.0-0.2); BASO % 0.4 % (0.0-1.0); EOS # 0.1 10^3/uL (0.0-0.5); EOS % 0.9 % (0.0-3.0); HEMOGLOBIN 15.7 g/dl (13.5-17.5); LYMPH # 2.7 10^3/uL (1.5-5.0); LYMPH % 23.2 % (24.0-44.0); MEAN CORPUSCULAR HEMOGLOBIN 31.4 pg (27.0-33.0); MEAN CORPUSCULAR HGB CONC 33.4 g/dl (32.0-36.5); MONO # 0.8 10^3/uL (0.0-0.8); MONO % 7.1 % (2.0-8.0); NEUTROPHILS # 7.8 10^3/uL (1.5-8.5); NEUTROPHILS % 68.1 % (36.0-66.0); PLATELET COUNT, AUTOMATED 256 10^3/uL (150-450); WHITE BLOOD COUNT 11.5 10^3/uL (4.0-10.0)
[2020-08-19] MEDS ORDERED: NS 1,000 ML IV ONE (11:55)
[2020-08-19 12:16] LABS: ALBUMIN 3.7 GM/DL (3.2-5.2); ALT/SGPT 57 U/L (12-78); BILIRUBIN,DIRECT 0.3 MG/DL (0.0-0.2); BILIRUBIN,TOTAL 1.2 MG/DL (0.2-1.0); BLOOD UREA NITROGEN 10 MG/DL (7-18); CARBON DIOXIDE LEVEL 30 MEQ/L (21-32); CHLORIDE LEVEL 102 MEQ/L (98-107); CK-MB VALUE MASS < 1.0 NG/ML (<3.6); CPK CREATINE PHOSPHOKINASE 46 U/L (39-308); CREATININE FOR GFR 0.89 MG/DL (0.70-1.30); GLOMERULAR FILTRATION RATE > 60.0 (>42); GLUCOSE, FASTING 100 MG/DL (70-100); LIPASE 137 U/L (73-393); MB/CK RELATIVE INDEX 2.17 (< OR =4); POTASSIUM SERUM 4.5 MEQ/L (3.5-5.1); SODIUM LEVEL 137 MEQ/L (136-145); TOTAL PROTEIN 7.1 GM/DL (6.4-8.2); TROPONIN I < 0.02 NG/ML (< 0.10)
[2020-08-19 12:41] LABS: INR 2.56; PROTHROMBIN TIME 28.1 SECONDS (12.5-14.3)
[2020-08-19] MEDS ORDERED: ISOVUE-370 76% 100ML VIAL As Ordered ONE (13:10)
--- NOTE | 2020-08-19 13:45 | REP ---
INDICATION: acid reflux, odynophagia, wt loss. COMPARISON: Comparison CT study of the chest from July 17, 2017.. TECHNIQUE: 100 mL of Isovue 370 is administered. Helical scanning is acquired and 3 mm axial images are generated. Coronal and sagittal MPR images are provided. FINDINGS: The there is good opacification of the pulmonary arterial tree and the thoracic aorta. There is no evidence of aortic aneurysm or dissection. There is no evidence of pulmonary embolus. No hilar or mediastinal mass is seen. There are scattered normal sized mediastinal lymph nodes in the right paratracheal region. Four-chamber cardiac enlargement is observed. No pleural effusion is seen. On lung window settings there is no evidence of infiltrate, atelectasis, lung mass, or nodule. There is no evidence of stoppage Eau mass or mural thickening. IMPRESSION: Four-chamber cardiac enlargement. Otherwise no active disease. <Electronically signed by Amaury Walters > 08/19/20 [id number]
--- NOTE | 2020-08-19 13:49 | REP ---
INDICATION: acid reflux, odynophagia, wt loss. COMPARISON: None. TECHNIQUE: Standard helical technique after the intravenous administration 100 cc Isovue 370. No oral bowel preparatory contrast was administered prior to the exam FINDINGS: There is moderate gastric distention with fluid and air. Mildly dilated 1st and 2nd portions of the duodenum also noted which abruptly terminates at the distal descending duodenum. The liver, gallbladder, spleen, pancreas, and adrenal glands are within normal limits. There is a 2.5 cm sized low-density round smoothly marginated structure arising from the inferior pole the right kidney which has water density Hounsfield unit readings. Multiple similar appearing structures are seen bilaterally which measure mm in size and the largest seen on the left measures 2.8 cm. This also has water density Hounsfield unit readings. The abdominal aorta and para degrees are within normal limits. There is no evidence of free fluid or free air. The bowel loops distal to the aforementioned duodenum are unremarkable. Bone window technique throughout the examination shows chronic spinal degenerative changes. IMPRESSION: Possible partial gastric outlet obstruction as described above etiology uncertain. EGD is recommended. Neoplasm cannot be ruled out. Bilateral Bosniak class 1 simple renal cysts <Electronically signed by Elvin Stokes > 08/19/20 [id number]
[2020-08-19] MEDS ORDERED: WARF-23 PO (14:38)
[2020-08-19] MEDS ORDERED: LOSA50TA88 PO (14:38)
[2020-08-19] MEDS ORDERED: SUCR1TAB56 PO (14:38)
[2020-08-19] MEDS ORDERED: MORPHINE 2 MG/ML 1ML VIAL (J2270) IV PRN ×2 (14:50)
[2020-08-19] MEDS ORDERED: ONDANSETRON 4MG/2ML VIAL IV PRN (14:50)
[2020-08-19] MEDS ORDERED: ALBUTEROL 90 MCG/ACT 8GM HFA INHALER INH PRN (14:50)
[2020-08-19] MEDS: NS 1,000 ML IV SCH (16:04)
--- NOTE | 2020-08-19 16:56 | HPEPDOC ---
[facility] Medical History & Physical Date of Admission Aug 19, 2020 Date of Service: Aug 19, 2020 Attending Physician: KELLY GARRISON DO History and Physical CHIEF COMPLAINT: Acid reflux HISTORY OF PRESENT ILLNESS: Patient is a 75-year-old male presents to the emergency department today with worsening acid reflux. Patient says that this is been worsening since the beginning of July. Patient states that he is not been able to eat a full meal since being in July is lost about 20 pounds. Patient states that he is able to tolerate a small amount of either liquids or solids but he gets this reflux back up. Patient denies any vomiting. Patient says that he feels like his belly is gotten bigger since then. 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 Patient was recently seen in the emergency department for similar complaints and was started on Carafate. Patient states that this is not really helped and he will get burning in the back of his throat when he eats anything. Today he came to the emergency department because he was not able to eat or drink anything without severe acid reflux. Patient had a CT scan done in the emergency department which showed a partial gastric outlet obstruction. Hospitalist were called for admission. PAST MEDICAL HISTORY: 1. Reflux. 2. Atrial fibrillation. 3. Hypertension. PAST SURGICAL HISTORY: 1. Cardiac catheterization with no stents placed. 2. Surgery on his left testicle. 3. Surgery on his right shoulder. 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 Patient denies smoking, drinking alcohol, or other drugs FAMILY HISTORY: Patient is not aware of any family history ALLERGIES: Please see below. REVIEW OF SYSTEMS: General: Patient denies fevers HEENT: Patient denies headaches Cardiovascular: Patient denies chest pain Respiratory: Patient denies shortness of breath, cough GI: Patient reports abdominal distention and acid reflux. Patient denies vomiting : Patient denies increased frequency or pain with urination Extremities: Patient denies swelling or pain in extremities Neurological: Patient denies numbness or tingling in legs Skin: Patient denies any new rashes or lesions. Hematologic: Patient denies any easy bruising. Lymphatic: Patient denies any lumps lumps or bumps in neck, axilla, or groin HOME MEDICATIONS: Please see below. PHYSICAL EXAMINATION: VITAL SIGNS: Temperature 98.3, pulse 58, respiratory rate 18, blood pressure 143/81, pulse oximetry 98% on room air. General: Alert and oriented male patient who was walking back from the bathroom when I walked into the room. Patient was able to move about the room without any difficulty. Patient did not appear to be in any acute distress. HEENT: Normocephalic, atraumatic, moist mucous membranes. Neck: No lymphadenopathy or thyromegaly Cardiac: Regular rate and rhythm, no murmurs, normal S1, normal S2 Pulm: Clear to auscultation bilaterally. No wheezes, rhonchi, rales Abd: Distended especially in the upper half of the abdomen, mildly tender to palpation with no rebound tenderness, normoactive bowel sounds Ext: No edema bilateral lower extremities Neuro: Patient was able to walk without any difficulty. Patient equal strength in upper and lower extremities bilaterally Skin: Skin of the head, neck, abdomen, lower and upper extremities was examined did not show any rash or lesions. LABORATORY DATA: See below. IMAGING: CT of the abdomen and pelvis performed with IV contrast on 08/19/2020 is reported to show possible partial gastric outlet obstruction. EGD is recommended. Neoplasm cannot be ruled out. CT of the chest with contrast performed on 08/19/2020 is reported to show four- chamber cardiac enlargement otherwise no active disease. MICROBIOLOGY: Please see below. ASSESSMENT: Patient is a 75-year-old male who presents to the emergency department with reflux who was found to have a partial gastric outlet obstruction. . PLAN: 1. Gastric outlet obstruction. I called and spoke with Dr. Esvin Velasquez of gastroenterology who plans on doing EGD on the patient tomorrow. NG tube to be placed on low intermittent suction. We will continue to monitor the patient. Patient will have EGD tomorrow be held n.p.o. IV fluids are running at this time. Pain control and nausea control have been given. IV Protonix 40 mg twice daily will be given. 2. Atrial fibrillation. Patient is rate controlled with Cardizem and digoxin and is anticoagulated with warfarin. Warfarin will be held at this time until after the patient's EGD is performed. 3. Hypertension. Home blood pressure medications will be given. 4. DVT prophylaxis: Teds and sequentials 5. CODE STATUS: Full code Disposition patient will be admitted to the medical surgical floor pending the results of the patient's EGD and relief of the gastric outlet obstruction. Vital Signs Vital Signs Date Time Temp Pulse Resp B/P (MAP) Pulse Ox O2 Delivery O2 Flow Rate FiO2 08/19/20 11:36 08/19/20 09:06 98.3 58 18 98 Room Air Laboratory Data Labs 24H Laboratory Tests 2 08/19/20 11:27: Immature Granulocyte % (Auto) 0.3, Neutrophils (%) (Auto) 68.1H, Lymphocytes (%) (Auto) 23.2L, Monocytes (%) (Auto) 7.1, Eosinophils (%) (Auto) 0.9, Basophils (%) (Auto) 0.4, Neutrophils # (Auto) 7.8, Lymphocytes # (Auto) 2.7, Monocytes # (Auto) 0.8, Eosinophils # (Auto) 0.1, Basophils # (Auto) 0.1, Nucleated Red Blood Cells % (auto) 0.0, Anion Gap 5L, Glomerular Filtration Rate > 60.0, Calcium Level 9.0, Total Bilirubin 1.2H, Direct Bilirubin 0.3H, Aspartate Amino Transf (AST/SGOT) 30, Alanine Aminotransferase (ALT/SGPT) 57, Alkaline Phosphatase 76, Total Creatine Kinase 46, Creatine Kinase MB < 1.0, Creatine Kinase MB Relative Index 2.17, Troponin I < 0.02, Total Protein 7.1, Albumin 3.7, Albumin/Globulin Ratio 1.1, Lipase 137 08/19/20 12:10: Prothrombin Time 28.1H, Prothromb Time International Ratio 2.56, Digoxin Level 0.6 CBC/BMP Laboratory Tests 08/19/20 11:27 Microbiology Microbiology 08/19/20 Respiratory Virus Panel (PCR) ([facility]) - Final, Complete Home Medications Scheduled Atorvastatin Calcium (Lipitor) 10 Mg Tab, 10 MG PO Q2D AT BEDTIME Calcium Carbonate/Vitamin D3 (Calcium 600-Vit D3 200 Tablet) 1 Tab Tab, 1 TAB PO BID Cetirizine HCl (Cetirizine HCl) 10 Mg Tab, 10 MG PO DAILY Digoxin (Digoxin) 125 Mcg Tablet, 125 MCG PO DAILY Diltiazem HCl (Dilt-Xr) 180 Mg Cap.er.deg, 180 MG PO DAILY Fluticasone/Vilanterol (Breo Ellipta 100-25 Mcg INH) 1 Inh Inh, 1 PUFF INH DAILY Losartan Potassium (Losartan Potassium) 50 Mg Tablet, 50 MG PO QHS Magnesium Oxide (Magnesium Oxide) 400 Mg Tablet, 800 MG PO BID Multivitamins (Thera M Plus Tablet) 1 Tab Tab, 1 TAB PO DAILY Omeprazole (Omeprazole) 20 Mg Cap, 40 MG PO BID Spironolactone (Spironolactone) 50 Mg Tab, 50 MG PO DAILY Sucralfate (Sucralfate) 1 Gm Tablet, 1 GM PO ACHS Torsemide (Torsemide) 5 Mg Tab, 5 MG PO DAILY Warfarin Sodium (Warfarin Sodium) 5 Mg Tablet, 5 MG PO QPM Scheduled PRN Albuterol Sulfate (Ventolin Hfa) 18 Gm Hfa.aer.ad, 2 PUFF INH Q4-6HP PRN for wheezing Nitroglycerin (Nitrostat) 0.4 Mg Subl, 0.4 MG SL Q5MP PRN for CHEST PAIN Allergies Coded Allergies: Penicillins (Verified Allergy, Intermediate, hand swelling, 03/20/19) A-FIB/CHADSVASC A-FIB History Current/History of A-Fib/PAF?: Yes Current PO Anticoag Therapy: Yes KELLY GARRISON DO Aug 19, 2020 16:56
[2020-08-19] MEDS: LOSARTAN 50MG TABLET PO SCH (20:28)
[2020-08-19] MEDS: PANTOPRAZOLE 40MG VIAL (C9113 PER 1) IV SCH (20:34)
--- NOTE | 2020-08-19 21:32 | ECGEPIP ---
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
[2020-08-20] MEDS: NS 1,000 ML IV SCH ×4 (00:14→18:10)
[2020-08-20 06:07] LABS: HEMATOCRIT 43.5 % (42.0-52.0); HEMOGLOBIN 14.7 g/dl (13.5-17.5); MEAN CORPUSCULAR HEMOGLOBIN 31.7 pg (27.0-33.0); MEAN CORPUSCULAR HGB CONC 33.8 g/dl (32.0-36.5); MEAN CORPUSCULAR VOLUME 93.8 fl (80.0-96.0); PLATELET COUNT, AUTOMATED 242 10^3/uL (150-450); RED BLOOD COUNT 4.64 10^6/uL (4.30-6.10); WHITE BLOOD COUNT 10.6 10^3/uL (4.0-10.0)
[2020-08-20 06:20] LABS: INR 2.23; PROTHROMBIN TIME 25.2 SECONDS (12.5-14.3)
[2020-08-20 06:31] LABS: BLOOD UREA NITROGEN 6 MG/DL (7-18); CALCIUM LEVEL 8.5 MG/DL (8.8-10.2); CARBON DIOXIDE LEVEL 29 MEQ/L (21-32); CHLORIDE LEVEL 107 MEQ/L (98-107); CREATININE FOR GFR 0.75 MG/DL (0.70-1.30); GLOMERULAR FILTRATION RATE > 60.0 (>42); GLUCOSE, FASTING 86 MG/DL (70-100); POTASSIUM SERUM 4.2 MEQ/L (3.5-5.1); SODIUM LEVEL 143 MEQ/L (136-145)
[2020-08-20] MEDS: DIGOXIN 0.125 MG TAB PO SCH (09:00)
[2020-08-20] MEDS: SPIRONOLACTONE 50 MG TAB PO SCH (09:00)
[2020-08-20] MEDS ORDERED: ENOXAPARIN 40MG/0.4ML SYRINGE (J1650 PER 10MG) SC SCH (09:00)
[2020-08-20] MEDS: diltiaZEM **CD** 180 MG CAP PO SCH (09:00)
--- NOTE | 2020-08-20 13:56 | IPNPDOC ---
Text Note Date of Service The patient was seen on 08/20/20. NOTE Subjective: Patient is a 75-year-old male presented to the emergency department yesterday and was diagnosed with a gastric outlet obstruction. NG tube was placed which is decompressing the stomach. Patient is unable to go to OPP for his procedure due to the risk for aspiration due to the gastric outlet obstruction is a patient will need to go to the operating room for his upper endoscopy. Patient states he is feeling well and does not have any complaints at this time. Patient says he is feeling hungry and that his stomach is feeling better. Review of systems: General: Patient denies fevers HEENT: Patient denies headaches Cardiovascular: Patient denies chest pain Respiratory: Patient denies shortness of breath, cough GI: Patient denies abdominal pain, nausea, vomiting, diarrhea : Patient denies increased frequency or pain with urination Extremities: Patient denies swelling or pain in extremities Neurological: Patient denies numbness or tingling in legs Physical exam: Vitals: See below General: Alert and oriented male patient who was laying in bed with NG tube in place when I walked in the room. Patient did not appear to be in any acute distress. HEENT: Normocephalic, atraumatic, moist mucous membranes. Neck: No lymphadenopathy or thyromegaly Cardiac: Regular rate and rhythm, no murmurs, normal S1, normal S2 Pulm: Clear to auscultation bilaterally. No wheezes, rhonchi, rales Abd: Nondistended, nontender to palpation, normal bowel sounds Ext: No edema bilateral lower extremities Labs: See below Imaging: No new imaging has been performed Assessment/plan: 75-year-old male presented to the emergency department with a chief complaint of reflux was found to have a partial gastric outlet obstruction. 1. Gastric outlet obstruction. I called and spoke with Dr. Griffin who states that he will take the patient down for an upper endoscopy either today or tomorrow in the operating room. Patient will be held n.p.o. IV fluids are running. Pain control nausea medication given IV Protonix 40 mg twice daily. 2. Chronic atrial fibrillation. Rate controlled with Cardizem and digoxin. Anticoagulated with warfarin. Warfarin held at this time due to need for EGD. 3. Hypertension. Home blood pressure medication will be given. DVT Prophylaxis: Teds and sequentials as Coumadin is being held Disposition: Pending relief of the gastric outlet obstruction and advancement of patient's diet. VS,Fishbone, I+O VS, Fishbone, I+O Laboratory Tests 08/20/20 05:41 Vital Signs Date Time Temp Pulse Resp B/P (MAP) Pulse Ox O2 Delivery O2 Flow Rate FiO2 08/20/20 03:58 96.9 72 16 160/82 (108) 97 Room Air I&O- Last 24 Hours up to 6 AM 08/20/20 06:00 Intake Total 2000 ml Output Total 1400 ml Balance 600 ml KELLY GARRISON DO Aug 20, 2020 13:56
[2020-08-20] MEDS: PANTOPRAZOLE 40MG VIAL (C9113 PER 1) IV SCH ×2 (14:50→21:11)
[2020-08-20] MEDS ORDERED: LIDOCAINE 2% 100MG/5ML SDV (FOR ANES.) As Ordered ONE (15:43)
[2020-08-20] MEDS ORDERED: SUCCINYLCHOLINE 100 MG/5 ML SYRINGE (J0330) As Ordered ONE (15:43)
[2020-08-20] MEDS ORDERED: propofoL 200 MG/20 ML VIAL As Ordered ONE ×2 (15:43→16:24)
[2020-08-20] MEDS ORDERED: dexameTHASONE 4 MG/ML 1ML VIAL (J1100 PER 1MG) As Ordered ONE (15:44)
[2020-08-20] MEDS ORDERED: fentaNYL 100 MCG/2 ML INJECTION (J3010) As Ordered ONE (15:44)
[2020-08-20] MEDS ORDERED: MIDAZOLAM INJ 2MG/2ML VIAL (J2250 PER 1MG) As Ordered ONE (15:44)
[2020-08-20] MEDS ORDERED: ONDANSETRON 4MG/2ML VIAL As Ordered ONE (15:44)
--- NOTE | 2020-08-20 17:04 | ROOR ---
Patient Name: Rocky Lazo Procedure Date: 08/20/2020 1:10 PM Date of : 1945 Age: 75 Gender: Male Note Status: Finalized Procedure: Upper GI endoscopy Indications: Abnormal CT of the GI tract Providers: Shane Condon MD Referring MD: Rory Faust Do, 2. Inpatient 2. Inpatient Requesting Provider: Medicines: General Anesthesia Complications: No immediate complications. Procedure: Pre-Anesthesia Assessment: - Prior to the procedure, a History and Physical was performed, and patient medications and allergies were reviewed. The patient is competent. The risks and benefits of the procedure and the sedation options and risks were discussed with the patient. All questions were answered and informed consent was obtained. Patient identification and proposed procedure were verified by the physician, the nurse and the anesthesiologist in the procedure room. Mental Status Examination: alert and oriented. Airway Examination: normal oropharyngeal airway and neck mobility. Respiratory Examination: clear to auscultation. CV Examination: normal. Prophylactic Antibiotics: The patient does not require prophylactic antibiotics. Prior Anticoagulants: The patient has taken no previous anticoagulant or antiplatelet agents. ASA Grade Assessment: III - A patient with severe systemic disease. After reviewing the risks and benefits, the patient was deemed in satisfactory condition to undergo the procedure. The anesthesia plan was to use monitored anesthesia care (MAC). Immediately prior to administration of medications, the patient was re-assessed for adequacy to receive sedatives. The heart rate, respiratory rate, oxygen saturations, blood pressure, adequacy of pulmonary ventilation, and response to care were monitored throughout the procedure. The physical status of the patient was re-assessed after the procedure. The Endoscope was introduced through the mouth, and advanced to the second part of duodenum. The upper GI endoscopy was accomplished without difficulty. The patient tolerated the procedure well. Findings: LA Grade B (one or more mucosal breaks greater than 5 mm, not extending between the tops of two mucosal folds) esophagitis with no bleeding was found in the distal esophagus. A large amount of food (residue) was found in the gastric fundus, in the gastric body and in the gastric antrum. Fluid aspiration was performed through the scope suction channel. The amount of fluid collected was 850 mL. The fluid was opaque. Scattered moderate inflammation characterized by congestion (edema) and granularity was found in the gastric antrum. An acquired severe stenosis was found in the second portion of the duodenum and was non-traversed. Biopsies were taken with a cold forceps for histology. Impression: - LA Grade B reflux esophagitis. - A large amount of food (residue) in the stomach. Fluid aspiration performed. - Gastritis. - Acquired duodenal stenosis. Biopsied. Recommendation: - Patient has a contact number available for emergencies. The signs and symptoms of potential delayed complications were discussed with the patient. Return to normal activities tomorrow. Written discharge instructions were provided to the patient. - NPO. - Continue present medications. - Use Protonix (pantoprazole) 40 mg IV BID for 2 days and then decide on switching to oral formulation based on clinical course.. - Await pathology results. - Repeat upper endoscopy in 2 days for re-evaluation based on pathology results and depending on the symptoms and clinical response. - [facility] patient to [facility] for [facility] care. - Refer to a surgeon tomorrow. - Telephone endoscopist for pathology results in 2 days. Procedure Code(s): --- Professional --- 64245, Esophagogastroduodenoscopy, flexible, transoral; with biopsy, single or multiple Diagnosis Code(s): --- Professional --- K21.0, Gastro-esophageal reflux disease with esophagitis K29.70, Gastritis, unspecified, without bleeding K31.5, Obstruction of duodenum R93.3, Abnormal findings on diagnostic imaging of other parts of digestive tract CPT copyright 2019 [employer] [place] [employer]. All rights reserved. The codes documented in this report are preliminary and upon project engineering director review may be revised to meet current compliance requirements. Shane Condon MD Shane Condon MD 08/20/2020 5:04:21 PM Electronically signed by Shane Condon MD Number of Addenda: 0 Note Initiated On: 08/20/2020 1:10 PM Estimated Blood Loss: Estimated blood loss was minimal.
[2020-08-20] MEDS ORDERED: LR 1,000 ML IV SCH (17:35)
[2020-08-20] MEDS ORDERED: METOCLOPRAMIDE INJ 10MG/2ML VIAL (J2765 PER 1) IV PRN (17:35)
[2020-08-20] MEDS ORDERED: ONDANSETRON 4MG/2ML VIAL IV PRN (17:35)
[2020-08-20 18:01] VITALS: BP 132/86
--- NOTE | 2020-08-20 19:15 | REP ---
INDICATION: confirm proper NG tube placement in stomach. COMPARISON: Comparison chest x-ray July 31, 2020. TECHNIQUE: Portable upright AP chest radiograph. FINDINGS: The lungs are well inflated and free of infiltrate. Pleural angles are sharp. Heart size is normal. Pulmonary vasculature is not increased. There are degenerative changes in the right shoulder. IMPRESSION: No active disease. <Electronically signed by Amaury Walters > 08/20/201911
[2020-08-20] MEDS: LOSARTAN 50MG TABLET PO SCH (21:12)
[2020-08-20 22:00] VITALS: BP 146/86
[2020-08-21] MEDS: NS 1,000 ML IV SCH ×2 (02:02→18:06)
[2020-08-21 06:00] VITALS: BP 118/70
[2020-08-21 06:36] LABS: HEMOGLOBIN 15.4 g/dl (13.5-17.5); MEAN CORPUSCULAR HEMOGLOBIN 31.4 pg (27.0-33.0); MEAN CORPUSCULAR HGB CONC 33.5 g/dl (32.0-36.5); MEAN CORPUSCULAR VOLUME 93.7 fl (80.0-96.0); PLATELET COUNT, AUTOMATED 252 10^3/uL (150-450); RED BLOOD COUNT 4.91 10^6/uL (4.30-6.10)
[2020-08-21 06:44] LABS: INR 2.2; PROTHROMBIN TIME 24.9 SECONDS (12.5-14.3)
[2020-08-21 07:06] LABS: BLOOD UREA NITROGEN 9 MG/DL (7-18); CALCIUM LEVEL 8.4 MG/DL (8.8-10.2); CARBON DIOXIDE LEVEL 26 MEQ/L (21-32); CHLORIDE LEVEL 106 MEQ/L (98-107); CREATININE FOR GFR 0.65 MG/DL (0.70-1.30); GLOMERULAR FILTRATION RATE > 60.0 (>42); GLUCOSE, FASTING 98 MG/DL (70-100); POTASSIUM SERUM 4.4 MEQ/L (3.5-5.1); SODIUM LEVEL 140 MEQ/L (136-145)
[2020-08-21] MEDS: PANTOPRAZOLE 40MG VIAL (C9113 PER 1) IV SCH ×2 (07:59→21:08)
[2020-08-21] MEDS: SPIRONOLACTONE 50 MG TAB PO SCH (08:00)
[2020-08-21] MEDS: DIGOXIN 0.125 MG TAB PO SCH (08:00)
[2020-08-21] MEDS: diltiaZEM **CD** 180 MG CAP PO SCH (08:00)
[2020-08-21 14:00] VITALS: BP 126/77
--- NOTE | 2020-08-21 15:13 | IPNPDOC ---
Text Note Date of Service The patient was seen on 08/21/20. NOTE Subjective: No new acute events overnight. Patient denies any fever or chills Objective: GENERAL APPEARANCE: NAD HEENT: no scleral icterus, no JVD, EOMI CARDIOVASCULAR: S1S2 LUNGS: CTA ABDOMEN: soft & not tender w palpitation MUSCULOSKELETAL: no cyanosis, no swelling INTEGUMENT: no generalized pallor NEUROLOGICAL: cranial nerve function from 2-12 intact intact, follows commands, speech not dysarthric Assessment and plan Patient is 75 years old male with past medical history of atrial fibrillation, hypertension presented to hospital with partial gastric outlet obstruction Gastric outlet obstruction EGD was done patient was found to have - LA Grade B reflux esophagitis. - A large amount of food (residue) in the stomach. Gastritis. Acquired duodenal stenosis. Biopsied. There is concern for malignancy. Await biopsy result. N.p.o. for now, continue Protonix 40 mg IV twice daily. GI team will repeat endoscopy tomorrow Atrial fibrillation Heart rate under control Warfarin on hold due to need for repeated EGD. I will change warfarin for Eliquis or Xarelto after EGD Hypertension Continue home meds I will discontinue spironolactone due to high risk of hyperkalemia with combination of ARB Blood pressure under control VS,Fishbone, I+O VS, Fishbone, I+O Laboratory Tests 08/21/20 05:28 Vital Signs Date Time Temp Pulse Resp B/P (MAP) Pulse Ox O2 Delivery O2 Flow Rate FiO2 08/21/20 08:00 86 129/85 08/21/20 06:00 97.0 18 94 Room Air I&O- Last 24 Hours up to 6 AM 08/21/20 06:00 Intake Total 3790 ml Output Total 3300 ml Balance 490 ml MANASA NAYAK DO Aug 21, 2020 15:13
[2020-08-21] MEDS: LOSARTAN 50MG TABLET PO SCH (21:10)
[2020-08-21 22:00] VITALS: BP 120/85
[2020-08-22] MEDS: NS 1,000 ML IV SCH (04:11)
[2020-08-22 06:00] VITALS: BP 127/83
[2020-08-22 06:00] LABS: HEMATOCRIT 43.2 % (42.0-52.0); HEMOGLOBIN 14.5 g/dl (13.5-17.5); MEAN CORPUSCULAR HEMOGLOBIN 31.2 pg (27.0-33.0); MEAN CORPUSCULAR HGB CONC 33.6 g/dl (32.0-36.5); MEAN CORPUSCULAR VOLUME 92.9 fl (80.0-96.0); PLATELET COUNT, AUTOMATED 258 10^3/uL (150-450); RED BLOOD COUNT 4.65 10^6/uL (4.30-6.10)
[2020-08-22 06:14] LABS: INR 2.1
[2020-08-22 06:32] LABS: BLOOD UREA NITROGEN 14 MG/DL (7-18); CALCIUM LEVEL 7.8 MG/DL (8.8-10.2); CARBON DIOXIDE LEVEL 27 MEQ/L (21-32); CHLORIDE LEVEL 110 MEQ/L (98-107); GLOMERULAR FILTRATION RATE > 60.0 (>42); GLUCOSE, FASTING 87 MG/DL (70-100); MAGNESIUM LEVEL 2.1 MG/DL (1.8-2.4); POTASSIUM SERUM 4.5 MEQ/L (3.5-5.1); SODIUM LEVEL 143 MEQ/L (136-145)
[2020-08-22] MEDS: DIGOXIN 0.125 MG TAB PO SCH (09:36)
[2020-08-22] MEDS: PANTOPRAZOLE 40MG VIAL (C9113 PER 1) IV SCH ×2 (09:36→21:00)
[2020-08-22] MEDS: diltiaZEM **CD** 180 MG CAP PO SCH (09:37)
--- NOTE | 2020-08-22 12:57 | IPNPDOC ---
Text Note Date of Service The patient was seen on 08/22/20. NOTE Subjective: No new acute events overnight. Patient stated that he feels better today Objective: GENERAL APPEARANCE: NAD HEENT: no scleral icterus, no JVD, EOMI, NG tube in place CARDIOVASCULAR: S1S2 LUNGS: CTA ABDOMEN: soft & not tender w palpitation MUSCULOSKELETAL: no cyanosis, no swelling INTEGUMENT: no generalized pallor NEUROLOGICAL: cranial nerve function from 2-12 intact intact, follows commands, speech not dysarthric Assessment and plan Patient is 75 years old male with past medical history of atrial fibrillation, hypertension presented to hospital with partial gastric outlet obstruction Gastric outlet obstruction EGD was done patient was found to have - LA Grade B reflux esophagitis. - A large amount of food (residue) in the stomach. Gastritis. Acquired duodenal stenosis. Biopsied. Preliminary biopsy result negative for malignancy. N.p.o. for now, continue Protonix 40 mg IV twice daily. GI team will repeat endoscopy tomorrow. We will start TPN today Atrial fibrillation Heart rate under control Warfarin on hold due to need for repeated EGD. I will change warfarin for Eliquis or Xarelto after EGD Hypertension Continue home meds Blood pressure under control VS,Fishbone, I+O VS, Fishbone, I+O Laboratory Tests 08/22/20 05:33 Vital Signs Date Time Temp Pulse Resp B/P (MAP) Pulse Ox O2 Delivery O2 Flow Rate FiO2 08/22/20 09:37 73 130/84 08/22/20 06:00 97.7 17 98 Room Air I&O- Last 24 Hours up to 6 AM 08/22/20 05:59 Intake Total 590 ml Output Total 1550 ml Balance -960 ml MANASA NAYAK DO Aug 22, 2020 12:57
[2020-08-22 14:00] VITALS: BP 123/87
[2020-08-22] MEDS ORDERED: FAT EMULSION IV 20% 500 ML IV SCH ×2 (18:00)
[2020-08-22] MEDS ORDERED: AMINO AC/ELECTROLYTE/DEX/CALC 2,000 ML IV SCH (18:00)
[2020-08-22] MEDS ORDERED: HumaLOG INSULIN (NovoLOG) PER UNIT SC SCH (18:00)
[2020-08-22] MEDS: HumaLOG INSULIN (NovoLOG) PER UNIT SC SCH (18:03)
[2020-08-22] MEDS: AMINO AC/ELECTROLYTE/DEX/CALC 1,000 ML IV SCH (18:35)
[2020-08-22 22:00] VITALS: BP 125/58
[2020-08-22] MEDS ORDERED: PANTOPRAZOLE 40MG TAB (PROTONIX) PO ONE (22:35)
[2020-08-22] MEDS: LOSARTAN 50MG TABLET PO SCH (22:44)
[2020-08-23] VITALS (7 sets, daily range): BP systolic 116–137; BP diastolic 77–83
[2020-08-23] MEDS: HumaLOG INSULIN (NovoLOG) PER UNIT SC SCH ×4 (06:00→18:00)
[2020-08-23 06:08] LABS: HEMATOCRIT 43.5 % (42.0-52.0); HEMOGLOBIN 14.6 g/dl (13.5-17.5); MEAN CORPUSCULAR HEMOGLOBIN 31.2 pg (27.0-33.0); MEAN CORPUSCULAR HGB CONC 33.6 g/dl (32.0-36.5); MEAN CORPUSCULAR VOLUME 92.9 fl (80.0-96.0); PLATELET COUNT, AUTOMATED 246 10^3/uL (150-450); RED BLOOD COUNT 4.68 10^6/uL (4.30-6.10); WHITE BLOOD COUNT 9.8 10^3/uL (4.0-10.0)
[2020-08-23 06:17] LABS: INR 1.56
[2020-08-23 06:33] LABS: BLOOD UREA NITROGEN 12 MG/DL (7-18); CALCIUM LEVEL 8.1 MG/DL (8.8-10.2); CARBON DIOXIDE LEVEL 30 MEQ/L (21-32); CHLORIDE LEVEL 108 MEQ/L (98-107); CREATININE FOR GFR 0.69 MG/DL (0.70-1.30); GLOMERULAR FILTRATION RATE > 60.0 (>42); GLUCOSE, FASTING 91 MG/DL (70-100); MAGNESIUM LEVEL 2.2 MG/DL (1.8-2.4); POTASSIUM SERUM 3.9 MEQ/L (3.5-5.1); SODIUM LEVEL 141 MEQ/L (136-145)
[2020-08-23] MEDS: PANTOPRAZOLE 40MG VIAL (C9113 PER 1) IV SCH ×2 (09:00→21:41)
[2020-08-23] MEDS: DIGOXIN 0.125 MG TAB PO SCH (09:09)
[2020-08-23] MEDS: diltiaZEM **CD** 180 MG CAP PO SCH (09:10)
[2020-08-23] MEDS ORDERED: LIDOCAINE 1% MDV 20ML VIAL As Ordered ONE (10:46)
[2020-08-23] MEDS: AMINO AC/ELECTROLYTE/DEX/CALC 1,000 ML IV SCH (12:30)
--- NOTE | 2020-08-23 13:10 | IPNPDOC ---
Text Note Date of Service The patient was seen on 08/23/20. NOTE Subjective: No new acute events overnight. No fever or chills. Objective: GENERAL APPEARANCE: NAD HEENT: no scleral icterus, no JVD, EOMI, NG tube in place CARDIOVASCULAR: S1S2 LUNGS: CTA ABDOMEN: soft & not tender w palpitation MUSCULOSKELETAL: no cyanosis, no swelling INTEGUMENT: no generalized pallor NEUROLOGICAL: cranial nerve function from 2-12 intact intact, follows commands, speech not dysarthric Assessment and plan Patient is 75 years old male with past medical history of atrial fibrillation, hypertension presented to hospital with partial gastric outlet obstruction Gastric outlet obstruction EGD was done patient was found to have - LA Grade B reflux esophagitis. - A large amount of food (residue) in the stomach. Gastritis. Acquired duodenal stenosis. Biopsied. biopsy result shows Fragments of duodenal mucosa with mild chronic inflammation. N.p.o. for now, continue Protonix 40 mg IV twice daily. GI team will repeat endoscopy today. Continue TPN Atrial fibrillation Heart rate under control Warfarin on hold due to need for repeated EGD. I will change warfarin for Eliquis or Xarelto after EGD Hypertension Continue home meds Blood pressure under control VS,Fishbone, I+O VS, Fishbone, I+O Laboratory Tests 08/23/20 05:35 Vital Signs Date Time Temp Pulse Resp B/P (MAP) Pulse Ox O2 Delivery O2 Flow Rate FiO2 08/23/20 11:37 80 18 97 Room Air 08/23/20 11:00 96.9 08/23/20 09:10 128/81 I&O- Last 24 Hours up to 6 AM 08/23/20 06:00 Intake Total 2180 ml Output Total 4170 ml Balance -1990 ml MANASA NAYAK DO Aug 23, 2020 13:10
--- NOTE | 2020-08-23 14:52 | ROOR ---
Patient Name: Rocky Lazo Procedure Date: 08/23/2020 1:35 PM Date of : 1945 Age: 75 Room: [facility] Gender: Male Note Status: Finalized Procedure: Upper GI endoscopy Indications: Follow-up of duodenal stenosis Providers: Shane Condon MD Referring MD: 2. Inpatient 2. Inpatient, JENNIFER MÁRQUEZ MD Requesting Provider: Medicines: Monitored Anesthesia Care Complications: No immediate complications. Procedure: Pre-Anesthesia Assessment: - Prior to the procedure, a History and Physical was performed, and patient medications and allergies were reviewed. The patient is competent. The risks and benefits of the procedure and the sedation options and risks were discussed with the patient. All questions were answered and informed consent was obtained. Patient identification and proposed procedure were verified by the physician, the nurse and the anesthesiologist in the procedure room. Mental Status Examination: alert and oriented. Airway Examination: normal oropharyngeal airway and neck mobility. Respiratory Examination: clear to auscultation. CV Examination: normal. Prophylactic Antibiotics: The patient does not require prophylactic antibiotics. Prior Anticoagulants: The patient has taken no previous anticoagulant or antiplatelet agents. ASA Grade Assessment: III - A patient with severe systemic disease. After reviewing the risks and benefits, the patient was deemed in satisfactory condition to undergo the procedure. The anesthesia plan was to use monitored anesthesia care (MAC). Immediately prior to administration of medications, the patient was re-assessed for adequacy to receive sedatives. The heart rate, respiratory rate, oxygen saturations, blood pressure, adequacy of pulmonary ventilation, and response to care were monitored throughout the procedure. The physical status of the patient was re-assessed after the procedure. The Endoscope was introduced through the mouth, and advanced to the second part of duodenum. The upper GI endoscopy was accomplished without difficulty. The patient tolerated the procedure well. Findings: No gross lesions were noted in the lower third of the esophagus. Food (residue) was found in the gastric body and in the gastric antrum. Removal of food was accomplished. An acquired severe stenosis was found in the second portion of the duodenum and was traversed after downsizing the scope to ultrathin scope. Biopsies were taken with a cold forceps for histology. Verification of patient identification for the specimen was done by the physician and nurse using the patient's name, date and medical record number. Food (residue) was found in the duodenal bulb. Removal of food was accomplished. Impression: - No gross lesions in esophagus. - Food (residue) in the stomach. Removal was successful. - Acquired duodenal stenosis. Biopsied. - Retained food in the duodenum. Removal was successful. Recommendation: - Patient has a contact number available for emergencies. The signs and symptoms of potential delayed complications were discussed with the patient. Return to normal activities tomorrow. Written discharge instructions were provided to the patient. - Clear liquid diet. - Use Protonix (pantoprazole) 40 mg PO twice daily - to be taken in morning (1/2 hour before breakfast) and at bedtime ( atleast 3 hours after last meal) for 3 months. - Change all oral medications to liquid formulations if possible. - Await pathology results. - Refer to a surgeon at the next available appointment. - Perform magnetic resonance imaging (MRI) with gadolinium. - Return to GI clinic in [facility] (address [address], [address], [place], [facility]) in 4 -- 6 weeks. Please call GI clinic @ [phone] for apppointment date and time. - Return to primary care physician. Procedure Code(s): --- Professional --- 71708, Esophagogastroduodenoscopy, flexible, transoral; with removal of foreign body(s) 79420, Esophagogastroduodenoscopy, flexible, transoral; with biopsy, single or multiple Diagnosis Code(s): --- Professional --- T18.2XXA, Foreign body in stomach, initial encounter K31.5, Obstruction of duodenum T18.3XXA, Foreign body in small intestine, initial encounter CPT copyright 2019 [employer]. All rights reserved. The codes documented in this report are preliminary and upon humidifier attendant review may be revised to meet current compliance requirements. Shane Condon MD Shane Condon MD 08/23/2020 2:51:38 PM Electronically signed by Shane Condon MD Number of Addenda: 0 Note Initiated On: 08/23/2020 1:35 PM Estimated Blood Loss: Estimated blood loss was minimal.
--- NOTE | 2020-08-23 14:57 | REP ---
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 COMPARISON: None. TECHNIQUE: The procedure was performed under the direct supervision of Dr. Walters. The risks and benefits of the procedure were explained to the patient and informed consent was obtained. The right basilic vein was localized using ultrasound guidance. The skin was prepped and draped in a sterile fashion. 1 mL of 1% lidocaine was used as a local anesthetic. Using ultrasound guidance the basilic vein was cannulated and a 0.018 guidewire was inserted and advanced to the SVC using fluoroscopic guidance, and last image hold technology. The needle was removed and a 5 [place]uran dilator and peel-away sheath was inserted over the guide wire. A 5 [place] dual lumen catheter was cut to length of 42 cm. The dilator was removed and the catheter was inserted over the guide wire with the tip ending in the SVC. The peel-away sheath was removed and the catheter was flushed with heparinized saline as per Hospital protocol. The catheter was affixed to the skin and a sterile dressing was applied. Estimated blood loss: Less than 1 cc The patient tolerated the procedure well and there were no immediate complications. 0.3 minutes of fluoro time was utilized for this procedure. FINDINGS: None IMPRESSION: PICC line insertion right basilic vein with the tip ending in the SVC. <Electronically signed by Mack Farfan > 08/23/20 7502 <Electronically signed by Amaury Walters > 08/23/20 [id number]
[2020-08-23] MEDS ORDERED: fentaNYL 100 MCG/2 ML INJECTION (J3010) IV PRN ×2 (15:55→16:15)
[2020-08-23] MEDS ORDERED: LR 1,000 ML IV SCH ×2 (15:55→16:15)
[2020-08-23] MEDS ORDERED: ONDANSETRON 4MG/2ML VIAL IV PRN ×2 (15:55→16:15)
[2020-08-23] MEDS ORDERED: FAT EMULSION IV 20% 500 ML IV SCH (18:00)
[2020-08-23] MEDS ORDERED: AMINO AC/ELECTROLYTE/DEX/CALC 2,000 ML IV SCH (18:00)
[2020-08-23] MEDS: SODIUM CHLORIDE 0.9% INJ 10 ML SYR IV SCH (18:55)
[2020-08-23] MEDS ORDERED: PROHANCE 279.3MG/ML 5ML VIAL As Ordered ONE (20:33)
[2020-08-23] MEDS ORDERED: PROHANCE 279.3MG/ML 15ML VIAL As Ordered ONE (20:34)
[2020-08-23] MEDS: SODIUM CHLORIDE 0.9% INJ 10 ML SYR IV PRN (21:41)
[2020-08-23] MEDS: LOSARTAN 50MG TABLET PO SCH (21:42)
--- NOTE | 2020-08-23 22:18 | REPVR ---
PROCEDURE INFORMATION: Exam: MR Abdomen Without and With Contrast Exam date and time: 08/23/2020 9:07 PM Age: 75 years old Clinical indication: Condition or disease; Pancreatic condition and stomach condition; Other: Not specified; Other: Gastrix outlet obstruction; Additional info: Pancreatic procol TECHNIQUE: Imaging protocol: MR of the abdomen without and with intravenous contrast. Contrast material: PROHANCE; Contrast volume: 17 ml; Contrast route: INTRAVENOUS (IV); COMPARISON: CT ABD/PEL W/IV CONTRAST ONLY 08/19/2020 1:13 PM FINDINGS: Liver: No mass. Gallbladder and bile ducts: Unremarkable. No stones. No ductal dilation. Pancreas: Unremarkable. No ductal dilation. No mass or inflammatory changes Spleen: Unremarkable. No splenomegaly. Adrenal glands: Unremarkable. No mass. Kidneys and ureters: Multiple simple cysts in the kidneys. No solid renal masses or hydronephrosis. Stomach and bowel: Distension of the stomach has decreased since the previous exam. No gastric wall thickening or masses are seen. There is circumferential wall thickening and luminal narrowing in the 1st portion of the duodenum extending over length of approximately 4.3 cm. There is eccentric nodular wall thickening along the medial margin of the duodenum at the pancreaticoduodenal groove measuring 1.6 cm (image 28, series 1301). Small bowel and colon are otherwise unremarkable. Intraperitoneal space: No free fluid. Arteries: No abdominal aortic aneurysm. Bones/joints: Unremarkable. Soft tissues: Unremarkable. IMPRESSION: 1. Thick-walled stricture of the 1st portion of the duodenum. Adjacent area of nodularity in the duodenal wall in the pancreaticoduodenal groove. Finding may be a benign stricture. Underlying neoplasm is not excluded. Follow-up endoscopy may be beneficial. 2. No pancreatic mass or duct dilation. COMMENTS: Consistent with the [employer]'s Incidental Findings Committee white paper (J Am Erik Radiol 2018): Any incidental renal lesion less than 1 cm or classified as too small to characterize, or any incidental cystic renal lesion characterized as simple-appearing, is likely benign. No follow-up imaging is recommended for these lesions per consensus recommendations based on imaging criteria. Electronically signed by: Gomez Petit On 08/23/2020 22:17:51 PM
[2020-08-24 02:00] VITALS: BP 121/77
[2020-08-24 06:00] VITALS: BP 99/65
[2020-08-24] MEDS: HumaLOG INSULIN (NovoLOG) PER UNIT SC SCH ×3 (06:00→12:00)
[2020-08-24 06:13] VITALS: BP 99/65
[2020-08-24 06:30] LABS: HEMATOCRIT 43.3 % (42.0-52.0); HEMOGLOBIN 14.7 g/dl (13.5-17.5); MEAN CORPUSCULAR HEMOGLOBIN 31.7 pg (27.0-33.0); MEAN CORPUSCULAR HGB CONC 33.9 g/dl (32.0-36.5); MEAN CORPUSCULAR VOLUME 93.5 fl (80.0-96.0); PLATELET COUNT, AUTOMATED 234 10^3/uL (150-450); RED BLOOD COUNT 4.63 10^6/uL (4.30-6.10); WHITE BLOOD COUNT 9.2 10^3/uL (4.0-10.0)
[2020-08-24 06:47] LABS: INR 1.24; PROTHROMBIN TIME 15.9 SECONDS (12.5-14.3)
[2020-08-24] MEDS: SODIUM CHLORIDE 0.9% INJ 10 ML SYR IV SCH (06:51)
[2020-08-24 06:54] LABS: BLOOD UREA NITROGEN 10 MG/DL (7-18); CALCIUM LEVEL 8.1 MG/DL (8.8-10.2); CARBON DIOXIDE LEVEL 31 MEQ/L (21-32); CHLORIDE LEVEL 108 MEQ/L (98-107); CREATININE FOR GFR 0.81 MG/DL (0.70-1.30); GLOMERULAR FILTRATION RATE > 60.0 (>42); GLUCOSE, FASTING 105 MG/DL (70-100); MAGNESIUM LEVEL 2.2 MG/DL (1.8-2.4); POTASSIUM SERUM 4.3 MEQ/L (3.5-5.1); SODIUM LEVEL 144 MEQ/L (136-145)
[2020-08-24] MEDS: PANTOPRAZOLE 40MG VIAL (C9113 PER 1) IV SCH (09:25)
[2020-08-24] MEDS: SODIUM CHLORIDE 0.9% INJ 10 ML SYR IV PRN (09:26)
[2020-08-24 09:29] VITALS: BP 118/75
[2020-08-24] MEDS: diltiaZEM **CD** 180 MG CAP PO SCH (09:29)
[2020-08-24] MEDS: DIGOXIN 0.125 MG TAB PO SCH (09:31)
[2020-08-24 10:00] VITALS: BP 146/81
[2020-08-24 14:00] VITALS: BP 134/68
--- NOTE | 2020-08-24 14:11 | DS.PDOC ---
Discharge Summary General Date of Admission Aug 19, 2020 at 14:48 Date of Discharge 08/24/20 Discharge Summary PROCEDURES PERFORMED DURING STAY: Esophagogastroduodenoscopy, flexible, transoral; with removal of foreign body(s) 41198, Esophagogastroduodenoscopy, flexible, transoral; with biopsy, single or multiple ADMITTING DIAGNOSES: Atrial fibrillation Gastric outlet obstruction Hypertension DISCHARGE DIAGNOSES: Atrial fibrillation Gastric outlet obstruction Hypertension T18.2XXA, Foreign body in stomach, initial encounter K31.5, Obstruction of duodenum T18.3XXA, Foreign body in small intestine, initial encounter COMPLICATIONS/CHIEF COMPLAINT: Gastric Outlet Obstruction. HISTORY OF PRESENT ILLNESS: Patient is 75 years old male with past medical history of atrial fibrillation, hypertension presented to hospital with partial gastric outlet obstruction HOSPITAL COURSE: During the hospital stay the following issues addressed Gastric outlet obstruction EGD was done patient was found to have - LA Grade B reflux esophagitis. - A large amount of food (residue) in the stomach. Gastritis. Acquired duodenal stenosis. Biopsied. biopsy result shows Fragments of duodenal mucosa with mild chronic inflammation. Patient received treatment with continue Protonix 40 mg IV twice daily. GI team repeated endoscopy patient was found to have An acquired severe stenosis was found in the second portion of the duodenum and was traversed after downsizing the scope to ultrathin scope. Biopsies were taken with a cold forceps for histology. DISCHARGE MEDICATIONS: Please see below. ALLERGIES: Please see below. PHYSICAL EXAMINATION ON DISCHARGE: VITAL SIGNS: Please see below. GENERAL APPEARANCE: NAD HEENT: no scleral icterus, no JVD, EOMI, NG tube in place CARDIOVASCULAR: S1S2 LUNGS: CTA ABDOMEN: soft & not tender w palpitation MUSCULOSKELETAL: no cyanosis, no swelling INTEGUMENT: no generalized pallor NEUROLOGICAL: cranial nerve function from 2-12 intact intact, follows commands, speech not dysarthric LABORATORY DATA: Please see below. IMAGING: [facility] NAME: CAREY AKERS DATE OF : 1945 BUSINESS NUMBER: [id number] AGE: 75 SEX: M REPORT #: [id number] ROOM: [facility] TECHNOLOGIST: BHAVYA DOCTOR: MANASA NAYAK DO Ordered for Date&Time: 08/23/20 1510 cc: [~ rep ct ivnm] Service Date&Time: 08/23/202106 This report is in Signed status. Interpretation performed by [facility]. Thank you for having your radiology procedures performed at [facility] RADIOLOGY REPORT Date&Time printed: [~ rep prt dt last] [~ rep prt tm last] Page 2 of [address] [address] RADIOLOGY REPORT This report is in Signed status. Interpretation performed by [facility]. Thank you for having your radiology procedures performed at [facility] RADIOLOGY REPORT Date&Time printed: [~ rep prt dt last] [~ rep prt tm last] Page 1 of 2 PROCEDURE INFORMATION: Exam: MR Abdomen Without and With Contrast Exam date and time: 08/23/2020 9:07 PM Age: 75 years old Clinical indication: Condition or disease; Pancreatic condition and stomach condition; Other: Not specified; Other: Gastrix outlet obstruction; Additional info: Pancreatic procol TECHNIQUE: Imaging protocol: MR of the abdomen without and with intravenous contrast. Contrast material: PROHANCE; Contrast volume: 17 ml; Contrast route: INTRAVENOUS (IV); COMPARISON: CT ABD/PEL W/IV CONTRAST ONLY 08/19/2020 1:13 PM FINDINGS: Liver: No mass. Gallbladder and bile ducts: Unremarkable. No stones. No ductal dilation. Pancreas: Unremarkable. No ductal dilation. No mass or inflammatory changes Spleen: Unremarkable. No splenomegaly. Adrenal glands: Unremarkable. No mass. Kidneys and ureters: Multiple simple cysts in the kidneys. No solid renal masses or hydronephrosis. Stomach and bowel: Distension of the stomach has decreased since the previous exam. No gastric wall thickening or masses are seen. There is circumferential wall thickening and luminal narrowing in the 1st portion of the duodenum extending over length of approximately 4.3 cm. There is eccentric nodular wall thickening along the medial margin of the duodenum at the pancreaticoduodenal groove measuring 1.6 cm (image 28, series 1301). Small bowel and colon are otherwise unremarkable. Intraperitoneal space: No free fluid. Arteries: No abdominal aortic aneurysm. Bones/joints: Unremarkable. Soft tissues: Unremarkable. IMPRESSION: 1. Thick-walled stricture of the 1st portion of the duodenum. Adjacent area of nodularity in the duodenal wall in the pancreaticoduodenal groove. Finding may be a benign stricture. Underlying neoplasm is not excluded. Follow-up endoscopy may be beneficial. 2. No pancreatic mass or duct dilation. COMMENTS: Consistent with the [employer]'s Incidental Findings Committee white paper (J Am Erik Radiol 2018): Any incidental renal lesion less than 1 cm or classified as too small to characterize, or any incidental cystic renal lesion characterized as simple-appearing, is likely benign. No follow-up imaging is recommended for these lesions per consensus recommendations based on imaging criteria. Electronically signed by: Gomez Fenton On 08/23/2020 22:17:51 PM DD: GOMEZ FENTON MD 08/23/202106 DT: YULIANA 08/23/202216 DS: LILLIANA 08/23/202216 [~ rep ct labl] PROGNOSIS: Fair ACTIVITY: [As tolerated]. DIET: Full liquid diet with Ensure 3 times daily DISPOSITION: Home DISCHARGE INSTRUCTIONS: Continue full liquid diet ITEMS TO FOLLOWUP ON ON OUTPATIENT: Use Protonix (pantoprazole) 40 mg PO twice daily - to be taken in morning (1/2 hour before breakfast) and at bedtime ( atleast 3 hours after last meal) for 3 months. - Change all oral medications to liquid formulations if possible. - Await pathology results. - Refer to a surgeon at the next available appointment. - Perform magnetic resonance imaging (MRI) with gadolinium. DISCHARGE CONDITION: [Stable]. TIME SPENT ON DISCHARGE: 40minutes. Vital Signs/I&Os Vital Signs Date Time Temp Pulse Resp B/P (MAP) Pulse Ox O2 Delivery O2 Flow Rate FiO2 08/24/20 10:00 97.8 52 14 146/81 (102) 95 Room Air I&O- Last 24 Hours up to 6 AM 08/24/20 06:00 Intake Total 965 ml Output Total 2300 ml Balance -1335 ml Laboratory Data Labs 24H Laboratory Tests 2 08/23/20 17:46: Bedside Glucose (Misc Panel) 84 08/24/20 00:24: Bedside Glucose (Misc Panel) 107 08/24/20 05:39: Nucleated Red Blood Cells % (auto) 0.0, Prothrombin Time 15.9H, Prothromb Time International Ratio 1.24, Anion Gap 5L, Glomerular Filtration Rate > 60.0, Calcium Level 8.1L, Magnesium Level 2.2 08/24/20 11:48: Bedside Glucose (Misc Panel) 101 CBC/BMP Laboratory Tests 08/24/20 05:39 FSBS Laboratory Tests Test 08/23/20 17:46 08/24/20 00:24 08/24/20 11:48 Range/Units Bedside Glucose (Misc Panel) 84 107 101 83-110 MG/DL Microbiology Microbiology 08/19/20 Respiratory Virus Panel (PCR) (EMEKA) - Final, Complete Discharge Medications Scheduled Atorvastatin Calcium (Lipitor) 10 Mg Tab, 10 MG PO Q2D, (Reported) AT BEDTIME Calcium Carbonate/Vitamin D3 (Calcium 600-Vit D3 200 Tablet) 1 Tab Tab, 1 TAB PO BID, (Reported) Cetirizine HCl (Cetirizine HCl) 10 Mg Tab, 10 MG PO DAILY, (Reported) Digoxin (Digoxin) 125 Mcg Tablet, 125 MCG PO DAILY, (Reported) Diltiazem HCl (Dilt-Xr) 180 Mg Cap.er.deg, 180 MG PO DAILY, (Reported) Fluticasone/Vilanterol (Breo Ellipta 100-25 Mcg INH) 1 Inh Inh, 1 PUFF INH DAILY, (Reported) Losartan Potassium (Losartan Potassium) 50 Mg Tablet, 50 MG PO QHS, (Reported) Magnesium Oxide (Magnesium Oxide) 400 Mg Tablet, 800 MG PO BID, (Reported) Multivitamins (Thera M Plus Tablet) 1 Tab Tab, 1 TAB PO DAILY, (Reported) Omeprazole (Omeprazole) 20 Mg Cap, 40 MG PO BID, (Reported) Spironolactone (Spironolactone) 50 Mg Tab, 50 MG PO DAILY, (Reported) Sucralfate (Sucralfate) 1 Gm Tablet, 1 GM PO ACHS, (Reported) Torsemide (Torsemide) 5 Mg Tab, 5 MG PO DAILY, (Reported) Warfarin Sodium (Warfarin Sodium) 5 Mg Tablet, 5 MG PO QPM, (Reported) Scheduled PRN Albuterol Sulfate (Ventolin Hfa) 18 Gm Hfa.aer.ad, 2 PUFF INH Q4-6HP PRN for wheezing, (Reported) Nitroglycerin (Nitrostat) 0.4 Mg Subl, 0.4 MG SL Q5MP PRN for CHEST PAIN, (Reported) Allergies Coded Allergies: Penicillins (Verified Allergy, Intermediate, hand swelling, 03/20/19) MANASA NAYAK DO Aug 24, 2020 14:11
[2020-08-25] MEDS ORDERED: METO25TA4 PO ×2 (13:19→14:28)
--- NOTE | 2020-08-26 16:50 | CR.PDOC ---
General Date of Consultation: Aug 20, 2020 Referring Provider: MANASA NAYAK DO Attending Physician: BERNARD MAURER MD Vital Signs/I&O Vital Signs Date Time Temp Pulse Resp B/P (MAP) Pulse Ox O2 Delivery O2 Flow Rate FiO2 08/24/20 14:00 97.9 57 16 134/68 (90) 100 Room Air Laboratory Data Microbiology Microbiology 08/19/20 Respiratory Virus Panel (PCR) (EMEKA) - Final, Complete Allergies Coded Allergies: Penicillins (Verified Allergy, Intermediate, hand swelling, 03/20/19) Home Medications Scheduled Atorvastatin Calcium (Lipitor) 10 Mg Tab, 10 MG PO Q2D, (Reported) AT BEDTIME Calcium Carbonate/Vitamin D3 (Calcium 600-Vit D3 200 Tablet) 1 Tab Tab, 1 TAB PO BID, (Reported) Cetirizine HCl (Cetirizine HCl) 10 Mg Tab, 10 MG PO DAILY, (Reported) Digoxin (Digoxin) 125 Mcg Tablet, 125 MCG PO DAILY, (Reported) Fluticasone/Vilanterol (Breo Ellipta 100-25 Mcg INH) 1 Inh Inh, 1 PUFF INH DAILY, (Reported) Losartan Potassium (Losartan Potassium) 50 Mg Tablet, 50 MG PO QHS, (Reported) Magnesium Oxide (Magnesium Oxide) 400 Mg Tablet, 800 MG PO BID, (Reported) Metoprolol Tartrate (Metoprolol Tartrate) 25 Mg Tablet, 25 MG PO BID for 30 Days, #60 Multivitamins (Thera M Plus Tablet) 1 Tab Tab, 1 TAB PO DAILY, (Reported) Omeprazole (Omeprazole) 20 Mg Cap, 40 MG PO BID, (Reported) Spironolactone (Spironolactone) 50 Mg Tab, 50 MG PO DAILY, (Reported) Sucralfate (Sucralfate) 1 Gm Tablet, 1 GM PO ACHS, (Reported) Torsemide (Torsemide) 5 Mg Tab, 5 MG PO DAILY, (Reported) Warfarin Sodium (Warfarin Sodium) 5 Mg Tablet, 5 MG PO QPM, (Reported) Scheduled PRN Albuterol Sulfate (Ventolin Hfa) 18 Gm Hfa.aer.ad, 2 PUFF INH Q4-6HP PRN for wheezing for 30 Days, #1 (Reported) Nitroglycerin (Nitrostat) 0.4 Mg Subl, 0.4 MG SL Q5MP PRN for CHEST PAIN, (Reported) BERNARD MAURER MD Aug 26, 2020 16:50
== END 2020-08-24 15:15 | disposition home or self-care (01) | DRG 382 ==
LOC: M ED 09:05 → M ED INP 14:48 → ENRESERV 08-20 14:40 → M MSPAV 08-20 17:39
PROVIDERS: ADMIT Family Medicine; ATTEND Internal Medicine
PROC: 0DB98ZX Excision of Duodenum, Via Natural or Artificial Opening Endoscopic, Diagnostic (ICD-10-PCS; 2020-08-20)
PROC: 0DC98ZZ Extirpation of Matter from Duodenum, Via Natural or Artificial Opening Endoscopic (ICD-10-PCS; 2020-08-20)
PROC: 0DB98ZX Excision of Duodenum, Via Natural or Artificial Opening Endoscopic, Diagnostic (ICD-10-PCS; 2020-08-23)
PROC: 02HV33Z Insertion of Infusion Device into Superior Vena Cava, Percutaneous Approach (ICD-10-PCS; principal; 2020-08-23 12:00)
DX: K31.1 Adult hypertrophic pyloric stenosis (principal); I48.91 Unspecified atrial fibrillation; I10 Essential (primary) hypertension; Z79.01 Long term (current) use of anticoagulants; Z79.899 Other long term (current) drug therapy; Z88.0 Allergy status to penicillin; K20.90 Esophagitis, unspecified without bleeding; K29.70 Gastritis, unspecified, without bleeding; T18.2XXA Foreign body in stomach, initial encounter; T18.3XXA Foreign body in small intestine, initial encounter

== ENCOUNTER → 2020-09-04 | Outpatient (CLI) | payer MEDICARE ==
[~2020-09-04] MED LIST changes: +LOSA50TA88 PO; +METO25TA4 PO; +SUCR1TAB56 PO; +WARF-23 PO
[2020-09-04 07:13] LABS: INR 1.48; PROTHROMBIN TIME 18.2 SECONDS (12.5-14.3)
== END ==
LOC: M LAB 06:36
PROVIDERS: ATTEND Physician Assistant
DX: I48.21 Permanent atrial fibrillation (principal); Z79.01 Long term (current) use of anticoagulants

== ENCOUNTER 2020-09-12 05:50 | Emergency (ER) | payer MEDICARE ==
[~2020-09-12] VITALS: Ht 170.2 cm; Wt 87.5 kg
[~2020-09-12 05:50] MED LIST changes: -AMIO200T3 PO; +AMIO200T49 PO; +LOSA100T45 PO; -LOSA100T50 PO; +LOSA50TA28 PO; -LOSA50TA88 PO
[2020-09-12 06:40] LABS: BASO # 0.1 10^3/uL (0.0-0.2); BASO % 0.4 % (0.0-1.0); EOS % 0.3 % (0.0-3.0); HEMATOCRIT 47.8 % (42.0-52.0); HEMOGLOBIN 16.1 g/dl (13.5-17.5); LYMPH # 1.8 10^3/uL (1.5-5.0); LYMPH % 15.4 % (24.0-44.0); MEAN CORPUSCULAR HEMOGLOBIN 31.7 pg (27.0-33.0); MEAN CORPUSCULAR HGB CONC 33.7 g/dl (32.0-36.5); MEAN CORPUSCULAR VOLUME 94.1 fl (80.0-96.0); MONO # 0.9 10^3/uL (0.0-0.8); MONO % 7.3 % (2.0-8.0); NEUTROPHILS # 8.9 10^3/uL (1.5-8.5); NEUTROPHILS % 76.3 % (36.0-66.0); PLATELET COUNT, AUTOMATED 279 10^3/uL (150-450); RED BLOOD COUNT 5.08 10^6/uL (4.30-6.10); WHITE BLOOD COUNT 11.7 10^3/uL (4.0-10.0)
[2020-09-12 06:51] LABS: INR 1.47; PROTHROMBIN TIME 18.3 SECONDS (12.7-14.5)
[2020-09-12] MEDS ORDERED: GI COCKTAIL 50ML BTL(HYOSCYAMINE/MAALOX/LIDOCAINE VISCOUS)(1:3:1) PO ONE (07:00)
[2020-09-12 07:20] LABS: ALBUMIN 4.1 GM/DL (3.2-5.2); ALT/SGPT 50 U/L (12-78); BILIRUBIN,DIRECT 0.4 MG/DL (0.0-0.2); BILIRUBIN,TOTAL 1.5 MG/DL (0.2-1.0); BLOOD UREA NITROGEN 15 MG/DL (7-18); CALCIUM LEVEL 10.4 MG/DL (8.8-10.2); CARBON DIOXIDE LEVEL 31 MEQ/L (21-32); CHLORIDE LEVEL 100 MEQ/L (98-107); CK-MB VALUE MASS < 1.0 NG/ML (<3.6); CPK CREATINE PHOSPHOKINASE 38 U/L (39-308); CREATININE FOR GFR 0.93 MG/DL (0.70-1.30); DIGOXIN LEVEL 0.7 NG/ML (0.5-2.0); FREE T4 1.52 NG/DL (0.76-1.46); GLOMERULAR FILTRATION RATE > 60.0 (>42); GLUCOSE, FASTING 109 MG/DL (70-100); LIPASE 167 U/L (73-393); MB/CK RELATIVE INDEX 2.63 (< OR =4); SODIUM LEVEL 140 MEQ/L (136-145); TOTAL PROTEIN 7.7 GM/DL (6.4-8.2); TROPONIN I < 0.02 NG/ML (< 0.10)
[2020-09-12] MEDS ORDERED: ISOVUE-370 76% 100ML VIAL As Ordered ONE (07:37)
[2020-09-12 09:36] LABS: NT-PRO BNP 567 PG/ML (<125)
[2020-09-12] MEDS ORDERED: SPIRONOLACTONE 50 MG TAB PO STA (10:21)
[2020-09-12] MEDS ORDERED: DIGOXIN 0.125 MG TAB PO ONE (10:25)
[2020-09-12] MEDS ORDERED: LOSARTAN 50MG TABLET PO ONE (10:25)
[2020-09-12] MEDS ORDERED: TORSEMIDE 10 MG TABLET PO STA (10:25)
[2020-09-12] MEDS ORDERED: diltiaZEM **CD** 180 MG CAP PO ONE (10:25)
[2020-09-12] MEDS ORDERED: DILT180C28 (10:51)
[2020-09-12 11:33] VITALS: BP 149/73
[2020-09-12 11:53] LABS: RSV AMPLIFICATION NEGATIVE (NEGATIVE)
[2020-09-12 13:45] VITALS: BP 165/76
== END 2020-09-12 13:52 | disposition short-term general hospital (02) ==
LOC: M ED 05:50
DX: K31.1 Adult hypertrophic pyloric stenosis (principal); K31.5 Obstruction of duodenum; I48.91 Unspecified atrial fibrillation; E80.6 Other disorders of bilirubin metabolism; F68.8 Other specified disorders of adult personality and behavior; I51.7 Cardiomegaly; K21.9 Gastro-esophageal reflux disease without esophagitis; I10 Essential (primary) hypertension; M48.061 Spinal stenosis, lumbar region without neurogenic claudication; G25.81 Restless legs syndrome; Z98.61 Coronary angioplasty status; Z79.01 Long term (current) use of anticoagulants; Z79.899 Other long term (current) drug therapy; Z88.0 Allergy status to penicillin
CPT/HCPCS: 71045; 71275; 74177; 80048; 80076; 80162; 82550; 82553; 83690; 83880; 84439; 84443; 84484; 85025; 85610; 87631; 93005; 96374; 96376; 99285; Q9967

== ENCOUNTER → 2020-10-17 | Outpatient (CLI) | payer MEDICARE ==
[~2020-10-17] MED LIST changes: +AMIO200T3 PO; -AMIO200T49 PO; +DILT180C28; -LOSA100T45 PO; +LOSA100T50 PO; -LOSA50TA28 PO; +LOSA50TA88 PO
[2020-10-17 08:56] LABS: INR 1.25; PROTHROMBIN TIME 16.1 SECONDS (12.7-14.5)
== END ==
LOC: M LAB 07:54
PROVIDERS: ATTEND Physician Assistant
DX: Z51.81 Encounter for therapeutic drug level monitoring (principal); Z79.01 Long term (current) use of anticoagulants; I48.21 Permanent atrial fibrillation

== ENCOUNTER → 2020-10-24 | Outpatient (CLI) | payer MEDICARE ==
[2020-10-24 06:56] LABS: INR 1.76
== END ==
LOC: M LAB 06:19
PROVIDERS: ATTEND Physician Assistant
DX: Z51.81 Encounter for therapeutic drug level monitoring (principal); Z79.01 Long term (current) use of anticoagulants; I48.21 Permanent atrial fibrillation

== ENCOUNTER → 2020-10-31 | Outpatient (CLI) | payer MEDICARE ==
[2020-10-31 11:31] LABS: INR 2.16; PROTHROMBIN TIME 24.5 SECONDS (12.7-14.5)
== END ==
LOC: M LAB 09:39
PROVIDERS: ATTEND Physician Assistant
DX: Z51.81 Encounter for therapeutic drug level monitoring (principal); Z79.01 Long term (current) use of anticoagulants; I48.21 Permanent atrial fibrillation

== ENCOUNTER → 2020-11-18 | Outpatient (CLI) | payer MEDICARE ==
[2020-11-18 07:49] LABS: INR 1.87
== END ==
LOC: M LAB 06:17
PROVIDERS: ATTEND Physician Assistant
DX: I48.21 Permanent atrial fibrillation (principal); Z79.01 Long term (current) use of anticoagulants

== ENCOUNTER → 2020-12-03 | Outpatient (CLI) | payer MEDICARE ==
[2020-12-03 07:00] LABS: INR 2.71; PROTHROMBIN TIME 29.1 SECONDS (12.7-14.5)
== END ==
LOC: M LAB 06:28
PROVIDERS: ATTEND Physician Assistant
DX: I48.21 Permanent atrial fibrillation (principal); Z79.01 Long term (current) use of anticoagulants

== ENCOUNTER → 2020-12-16 | Outpatient (CLI) | payer MEDICARE ==
[2020-12-16 07:15] LABS: INR 3.51; PROTHROMBIN TIME 35.4 SECONDS (12.7-14.5)
== END ==
LOC: M LAB 06:15
PROVIDERS: ATTEND Internal Medicine
DX: I48.21 Permanent atrial fibrillation (principal); Z79.01 Long term (current) use of anticoagulants

== ENCOUNTER → 2020-12-31 | Outpatient (CLI) | payer MEDICARE ==
[2020-12-31 07:06] LABS: INR 2.74; PROTHROMBIN TIME 29.4 SECONDS (12.7-14.5)
== END ==
LOC: M LAB 06:20
PROVIDERS: ATTEND Physician Assistant
DX: I48.21 Permanent atrial fibrillation (principal); Z79.01 Long term (current) use of anticoagulants

== ENCOUNTER → 2021-01-08 | Outpatient (CLI) | payer MEDICARE ==
[~2021-01-08] MED LIST changes: -AMIO200T3 PO; +AMIO200T49 PO; +GASTROGRAFIN SOLUTION 30ML (Q9963) As Ordered ONE; +ISOVUE-370 76% 100ML VIAL As Ordered ONE; +LOSA100T45 PO; -LOSA100T50 PO; +LOSA50TA28 PO; -LOSA50TA88 PO
== END ==
LOC: M RAD 10:51
PROVIDERS: ATTEND Colon & Rectal Surgery
DX: C17.0 Malignant neoplasm of duodenum (principal)
CPT/HCPCS: 71260; 74177; Q9963; Q9967

== ENCOUNTER → 2021-01-28 | Outpatient (CLI) | payer MEDICARE ==
[~2021-01-28] MED LIST changes: +AMIO200T3 PO; -AMIO200T49 PO; -GASTROGRAFIN SOLUTION 30ML (Q9963) As Ordered ONE; -ISOVUE-370 76% 100ML VIAL As Ordered ONE; -LOSA100T45 PO; +LOSA100T50 PO; -LOSA50TA28 PO; +LOSA50TA88 PO
[2021-01-28 06:51] LABS: INR 2.81; PROTHROMBIN TIME 29.9 SECONDS (12.7-14.5)
== END ==
LOC: M LAB 06:12
PROVIDERS: ATTEND Physician Assistant
DX: I48.21 Permanent atrial fibrillation (principal); Z79.01 Long term (current) use of anticoagulants

== ENCOUNTER → 2021-02-24 | Outpatient (CLI) | payer MEDICARE ==
[~2021-02-24] MED LIST changes: -AMIO200T3 PO; +AMIO200T49 PO; +LOSA100T45 PO; -LOSA100T50 PO; +LOSA50TA28 PO; -LOSA50TA88 PO
[2021-02-24 06:50] LABS: INR 2.88; PROTHROMBIN TIME 30.5 SECONDS (12.7-14.5)
== END ==
LOC: M LAB 06:16
PROVIDERS: ATTEND Physician Assistant
DX: Z51.81 Encounter for therapeutic drug level monitoring (principal); Z79.01 Long term (current) use of anticoagulants; I48.21 Permanent atrial fibrillation

== ENCOUNTER → 2021-03-24 | Outpatient (CLI) | payer MEDICARE ==
[2021-03-24 06:54] LABS: INR 3.74; PROTHROMBIN TIME 37.2 SECONDS (12.7-14.5)
== END ==
LOC: M LAB 06:16
PROVIDERS: ATTEND Physician Assistant
DX: I48.21 Permanent atrial fibrillation (principal); Z79.01 Long term (current) use of anticoagulants

== ENCOUNTER → 2021-04-01 | Outpatient (CLI) | payer MEDICARE ==
[2021-04-01 12:24] LABS: INR 1.96; PROTHROMBIN TIME 22.7 SECONDS (12.7-14.5)
== END ==
LOC: M LAB 11:28
PROVIDERS: ATTEND Physician Assistant
DX: I48.21 Permanent atrial fibrillation (principal); Z79.01 Long term (current) use of anticoagulants

== ENCOUNTER → 2021-04-02 | Outpatient (CLI) | payer MEDICARE ==
[~2021-04-02] MED LIST changes: +GASTROGRAFIN SOLUTION 30ML (Q9963) As Ordered ONE; +ISOVUE-370 76% 100ML VIAL As Ordered ONE
== END ==
LOC: M RAD 10:07
DX: C25.9 Malignant neoplasm of pancreas, unspecified (principal); J84.10 Pulmonary fibrosis, unspecified; N28.1 Cyst of kidney, acquired; I70.0 Atherosclerosis of aorta; Z95.828 Presence of other vascular implants and grafts; J44.9 Chronic obstructive pulmonary disease, unspecified
CPT/HCPCS: 71260; 74178; Q9963; Q9967

== ENCOUNTER → 2021-04-14 | Outpatient (CLI) | payer MEDICARE ==
[~2021-04-14] MED LIST changes: -GASTROGRAFIN SOLUTION 30ML (Q9963) As Ordered ONE; -ISOVUE-370 76% 100ML VIAL As Ordered ONE
[2021-04-14 07:23] LABS: INR 2.3; PROTHROMBIN TIME 25.7 SECONDS (12.7-14.5)
== END ==
LOC: M LAB 06:07
PROVIDERS: ATTEND Physician Assistant
DX: I48.21 Permanent atrial fibrillation (principal)

== ENCOUNTER → 2021-05-12 | Outpatient (CLI) | payer MEDICARE ==
[2021-05-12 06:51] LABS: INR 2.82
== END ==
LOC: M LAB 05:59
PROVIDERS: ATTEND Physician Assistant
DX: I48.21 Permanent atrial fibrillation (principal)

== ENCOUNTER → 2021-06-02 | Outpatient (CLI) | payer MEDICARE ==
[2021-06-02 15:43] LABS: ALBUMIN 3.3 GM/DL (3.2-5.2); BLOOD UREA NITROGEN 14 MG/DL (7-18); CALCIUM LEVEL 8.7 MG/DL (8.8-10.2); CARBON DIOXIDE LEVEL 34 MEQ/L (21-32); CHLORIDE LEVEL 104 MEQ/L (98-107); CREATININE FOR GFR 0.99 MG/DL (0.70-1.30); GLOMERULAR FILTRATION RATE > 60.0 (>42); GLUCOSE, FASTING 89 MG/DL (70-100); NT-PRO BNP 864 PG/ML (<450); PHOSPHORUS LEVEL 3.3 MG/DL (2.5-4.9); POTASSIUM SERUM 3.8 MEQ/L (3.5-5.1); SODIUM LEVEL 142 MEQ/L (136-145)
== END ==
LOC: M LAB 14:09
PROVIDERS: ATTEND Internal Medicine Cardiovascular Disease
DX: I50.42 Chronic combined systolic (congestive) and diastolic (congestive) heart failure (principal)

== ENCOUNTER → 2021-06-06 | Outpatient (CLI) | payer MEDICARE ==
[~2021-06-06] MED LIST changes: +GASTROGRAFIN SOLUTION 30ML (Q9963) As Ordered ONE; +ISOVUE-370 76% 100ML VIAL As Ordered ONE
== END ==
LOC: M RAD 08:33
PROVIDERS: ATTEND Internal Medicine Hematology & Oncology
DX: C25.9 Malignant neoplasm of pancreas, unspecified (principal); Z95.828 Presence of other vascular implants and grafts; J84.10 Pulmonary fibrosis, unspecified
CPT/HCPCS: 71260; 74178; Q9963; Q9967

== ENCOUNTER → 2021-06-09 | Outpatient (CLI) | payer MEDICARE ==
[~2021-06-09] MED LIST changes: -GASTROGRAFIN SOLUTION 30ML (Q9963) As Ordered ONE; -ISOVUE-370 76% 100ML VIAL As Ordered ONE
[2021-06-09 07:51] LABS: INR 2.23; PROTHROMBIN TIME 25.1 SECONDS (12.7-14.5)
== END ==
LOC: M LAB 05:59
PROVIDERS: ATTEND Physician Assistant
DX: I48.21 Permanent atrial fibrillation (principal); Z79.01 Long term (current) use of anticoagulants

== ENCOUNTER → 2021-07-30 | Outpatient (CLI) | payer MEDICARE ==
[~2021-07-30] MED LIST changes: +ALBU2.5V10 INH; -ALBU83IN INH; +ISOVUE-370 76% 100ML VIAL As Ordered ONE
== END ==
LOC: M RAD 10:49
PROVIDERS: ATTEND Colon & Rectal Surgery
DX: C25.0 Malignant neoplasm of head of pancreas (principal); J90 Pleural effusion, not elsewhere classified; R18.8 Other ascites; Z93.1 Gastrostomy status
CPT/HCPCS: 74178; Q9967

== ENCOUNTER → 2021-09-23 | Outpatient (CLI) | payer MEDICARE ==
[~2021-09-23] MED LIST changes: +GASTROGRAFIN SOLUTION 30ML (Q9963) As Ordered ONE
== END ==
LOC: M RAD 11:26
PROVIDERS: ATTEND Nurse Practitioner Adult Health
DX: C25.9 Malignant neoplasm of pancreas, unspecified (principal)
CPT/HCPCS: 74177; Q9963; Q9967

== ENCOUNTER 2021-09-29 01:33 | Emergency (ER) | payer MEDICARE ==
[~2021-09-29] VITALS: Ht 170.2 cm; Wt 74.3 kg
[~2021-09-29 01:33] MED LIST changes: -GASTROGRAFIN SOLUTION 30ML (Q9963) As Ordered ONE; -ISOVUE-370 76% 100ML VIAL As Ordered ONE
[2021-09-29 01:34] VITALS: BP 121/80
== END 2021-09-29 04:33 | disposition left against medical advice (07) ==
LOC: M ED 01:33
DX: Z53.21 Procedure and treatment not carried out due to patient leaving prior to being seen by health care provider (principal)

== ENCOUNTER → 2021-10-02 | Outpatient (CLI) | payer MEDICARE ==
[2021-10-02 10:22] LABS: INR 1.95; PROTHROMBIN TIME 22.6 SECONDS (12.7-14.5)
== END ==
LOC: M LAB 09:07
PROVIDERS: ATTEND Physician Assistant
DX: I48.21 Permanent atrial fibrillation (principal); Z79.01 Long term (current) use of anticoagulants

== ENCOUNTER → 2021-10-03 | Outpatient (CLI) | payer MEDICARE | LOC: M RAD 14:10 | PROVIDERS: ATTEND Physician Assistant | DX: R22.42 Localized swelling, mass and lump, left lower limb (principal); M79.605 Pain in left leg; M79.81 Nontraumatic hematoma of soft tissue ==

== ENCOUNTER → 2021-10-07 | Outpatient (CLI) | payer MEDICARE ==
[2021-10-07 13:27] LABS: INR 3.33; PROTHROMBIN TIME 34.1 SECONDS (12.7-14.5)
== END ==
LOC: M LAB 12:38
PROVIDERS: ATTEND Physician Assistant
DX: I48.21 Permanent atrial fibrillation (principal); Z79.01 Long term (current) use of anticoagulants

== ENCOUNTER → 2021-10-22 | Outpatient (CLI) | payer MEDICARE ==
[2021-10-22 11:08] LABS: INR 3.17; PROTHROMBIN TIME 32.8 SECONDS (12.7-14.5)
== END ==
LOC: M LAB 10:14
PROVIDERS: ATTEND Physician Assistant
DX: I48.21 Permanent atrial fibrillation (principal); Z79.01 Long term (current) use of anticoagulants

== ENCOUNTER → 2021-11-03 | Outpatient (CLI) | payer MEDICARE ==
[2021-11-03 11:06] LABS: INR 2.08; PROTHROMBIN TIME 23.8 SECONDS (12.7-14.5)
== END ==
LOC: M LAB 10:12
PROVIDERS: ATTEND Physician Assistant
DX: I48.21 Permanent atrial fibrillation (principal); Z79.01 Long term (current) use of anticoagulants

== ENCOUNTER → 2021-12-01 | Outpatient (CLI) | payer MEDICARE ==
[2021-12-01 12:12] LABS: BLOOD UREA NITROGEN 16 MG/DL (7-18); CREATININE FOR GFR 0.92 MG/DL (0.70-1.30); GLOMERULAR FILTRATION RATE > 60.0 (>42)
== END ==
LOC: M LAB 10:49
PROVIDERS: ATTEND Nurse Practitioner Adult Health
DX: C25.9 Malignant neoplasm of pancreas, unspecified (principal); I48.91 Unspecified atrial fibrillation; Z79.01 Long term (current) use of anticoagulants

== ENCOUNTER → 2021-12-01 | Outpatient (CLI) | payer MEDICARE ==
[2021-12-01 12:09] LABS: INR 2.75; PROTHROMBIN TIME 29.5 SECONDS (12.5-14.5)
== END ==
LOC: M LAB 10:45
PROVIDERS: ATTEND Physician Assistant
DX: I48.21 Permanent atrial fibrillation (principal); Z79.01 Long term (current) use of anticoagulants

== ENCOUNTER → 2021-12-29 | Outpatient (CLI) | payer MEDICARE ==
[2021-12-29 09:47] LABS: INR 2.58; PROTHROMBIN TIME 28.1 SECONDS (12.5-14.5)
== END ==
LOC: M LAB 08:41
PROVIDERS: ATTEND Physician Assistant
DX: I48.21 Permanent atrial fibrillation (principal); Z79.01 Long term (current) use of anticoagulants

== ENCOUNTER → 2021-12-30 | Outpatient (CLI) | payer MEDICARE ==
[~2021-12-30] MED LIST changes: +GASTROGRAFIN SOLUTION 30ML As Ordered ONE; +ISOVUE-370 76% 100ML VIAL As Ordered ONE
== END ==
LOC: M RAD 11:50
PROVIDERS: ATTEND Colon & Rectal Surgery
DX: C25.9 Malignant neoplasm of pancreas, unspecified (principal); N28.1 Cyst of kidney, acquired; R91.8 Other nonspecific abnormal finding of lung field
CPT/HCPCS: 71260; 74177; Q9963; Q9967

== ENCOUNTER → 2022-01-26 | Outpatient (CLI) | payer MEDICARE ==
[~2022-01-26] MED LIST changes: -GASTROGRAFIN SOLUTION 30ML As Ordered ONE; -ISOVUE-370 76% 100ML VIAL As Ordered ONE
[2022-01-26 09:26] LABS: INR 2.56; PROTHROMBIN TIME 27.9 SECONDS (12.5-14.5)
== END ==
LOC: M LAB 08:45
PROVIDERS: ATTEND Physician Assistant
DX: I48.21 Permanent atrial fibrillation (principal); Z79.01 Long term (current) use of anticoagulants

== ENCOUNTER → 2022-02-03 | Outpatient (CLI) | payer MEDICARE | LOC: M PLARAD 11:20 | PROVIDERS: ATTEND Nurse Practitioner Adult Health | DX: C25.1 Malignant neoplasm of body of pancreas (principal) | CPT/HCPCS: 78815; A9552 ==

== ENCOUNTER → 2022-02-23 | Outpatient (CLI) | payer MEDICARE ==
[2022-02-23 11:47] LABS: INR 3.36; PROTHROMBIN TIME 34.5 SECONDS (12.5-14.5)
== END ==
LOC: M LAB 11:00
PROVIDERS: ATTEND Physician Assistant
DX: I48.21 Permanent atrial fibrillation (principal); Z79.01 Long term (current) use of anticoagulants

== ENCOUNTER → 2022-03-09 | Outpatient (CLI) | payer MEDICARE ==
[2022-03-09 08:58] LABS: INR 2.3; PROTHROMBIN TIME 25.7 SECONDS (12.5-14.5)
== END ==
LOC: M LAB 07:57
PROVIDERS: ATTEND Internal Medicine Cardiovascular Disease
DX: I48.21 Permanent atrial fibrillation (principal); Z79.01 Long term (current) use of anticoagulants

== ENCOUNTER → 2022-04-08 | Outpatient (CLI) | payer MEDICARE ==
[2022-04-08 09:20] LABS: INR 3.33; PROTHROMBIN TIME 34.3 SECONDS (12.5-14.5)
== END ==
LOC: M LAB 08:43
PROVIDERS: ATTEND Physician Assistant
DX: I48.21 Permanent atrial fibrillation (principal); Z79.01 Long term (current) use of anticoagulants

== ENCOUNTER 2022-04-15 08:38 | Emergency (ER) | payer MEDICARE ==
[~2022-04-15] VITALS: Ht 170.2 cm; Wt 81.8 kg
[2022-04-15] MEDS ORDERED: ASPIRIN 81MG CHEW TABLET PO ONE (09:00)
[2022-04-15] MEDS: NITROGLYCERIN 0.4MG SUBL TABLET SL PRN ×3 (09:22→09:42)
[2022-04-15 09:42] VITALS: BP 144/92
[2022-04-15 09:43] LABS: BASO % 0.4 % (0.0-1.0); EOS # 0.1 10^3/uL (0.0-0.5); EOS % 1.3 % (0.0-3.0); HEMATOCRIT 44.4 % (42.0-52.0); HEMOGLOBIN 14.7 g/dl (13.5-17.5); LYMPH # 1.4 10^3/uL (1.5-5.0); LYMPH % 17.1 % (24.0-44.0); MEAN CORPUSCULAR HEMOGLOBIN 33.9 pg (27.0-33.0); MEAN CORPUSCULAR HGB CONC 33.1 g/dl (32.0-36.5); MEAN CORPUSCULAR VOLUME 102.5 fl (80.0-96.0); MONO # 0.6 10^3/uL (0.0-0.8); MONO % 7.4 % (2.0-8.0); NEUTROPHILS # 5.9 10^3/uL (1.5-8.5); NEUTROPHILS % 73.4 % (36.0-66.0); PLATELET COUNT, AUTOMATED 201 10^3/uL (150-450); RED BLOOD COUNT 4.33 10^6/uL (4.30-6.10)
[2022-04-15 09:51] LABS: INR 2.89; PROTHROMBIN TIME 30.7 SECONDS (12.5-14.5)
[2022-04-15 09:55] LABS: LIPASE 17 U/L (12-53)
[2022-04-15 10:00] LABS: ALBUMIN 3.5 G/DL (3.2-5.2); ALKALINE PHOSPHATASE 90 U/L (46-116); ALT/SGPT 115 U/L (7.0-40); AST/SGOT 67 U/L (<34); BILIRUBIN,DIRECT 0.9 MG/DL (<0.4); BILIRUBIN,TOTAL 2.8 MG/DL (0.3-1.2); BLOOD UREA NITROGEN 14 MG/DL (9-23); CALCIUM LEVEL 8.7 MG/DL (8.3-10.6); CARBON DIOXIDE LEVEL 31 MMOL/L (20-31); CHLORIDE LEVEL 102 MMOL/L (98-107); CK-MB VALUE MASS < 1.0 NG/ML (<3.6); CREATININE FOR GFR 1.08 MG/DL (0.70-1.30); GLOMERULAR FILTRATION RATE > 60.0 (>42); GLUCOSE, FASTING 114 MG/DL (74-106); POTASSIUM SERUM 4.3 MMOL/L (3.5-5.1); SODIUM LEVEL 137 MMOL/L (136-145); THYROID STIMULATING HORMONE 3.628 uIU/ML (0.55-4.78); TOTAL PROTEIN 6.7 G/DL (5.7-8.2)
[2022-04-15 10:05] LABS: CPK CREATINE PHOSPHOKINASE 36 U/L (46-171); MB/CK RELATIVE INDEX 2.77 (< OR =4)
[2022-04-15] MEDS ORDERED: ISOVUE-370 76% 100ML VIAL As Ordered ONE (10:45)
[2022-04-15 11:09] LABS: CK-MB VALUE MASS 1.2 NG/ML (<3.6); MB/CK RELATIVE INDEX 4.13 (< OR =4)
[2022-04-15 12:37] LABS: CK-MB VALUE MASS 1.1 NG/ML (<3.6)
[2022-04-15 12:38] LABS: MB/CK RELATIVE INDEX 5.5 (< OR =4)
[2022-04-15 15:30] VITALS: BP 140/85
== END 2022-04-15 15:59 | disposition home or self-care (01) ==
LOC: M ED 08:38
DX: R10.13 Epigastric pain (principal); N28.1 Cyst of kidney, acquired; I48.91 Unspecified atrial fibrillation; I10 Essential (primary) hypertension; E78.5 Hyperlipidemia, unspecified; R73.09 Other abnormal glucose; Z86.73 Personal history of transient ischemic attack (TIA), and cerebral infarction without residual deficits; Z79.01 Long term (current) use of anticoagulants; Z79.899 Other long term (current) drug therapy; Z88.0 Allergy status to penicillin
CPT/HCPCS: 71045; 71275; 74177; 80048; 80076; 82550; 82553; 83690; 84443; 84484; 85025; 85610; 93005; 93041; 94760; 99285; Q9967

== ENCOUNTER → 2022-04-22 | Outpatient (CLI) | payer MEDICARE ==
[2022-04-22 10:31] LABS: INR 2.83; PROTHROMBIN TIME 30.2 SECONDS (12.5-14.5)
== END ==
LOC: M LAB 09:24
PROVIDERS: ATTEND Physician Assistant
DX: I48.21 Permanent atrial fibrillation (principal); Z79.01 Long term (current) use of anticoagulants

== ENCOUNTER → 2022-05-14 | Outpatient (CLI) | payer MEDICARE ==
[~2022-05-14] MED LIST changes: +ISOVUE-370 76% 100ML VIAL As Ordered ONE
== END ==
LOC: M RAD 09:48
PROVIDERS: ATTEND Internal Medicine Hematology & Oncology
DX: C25.9 Malignant neoplasm of pancreas, unspecified (principal); R91.8 Other nonspecific abnormal finding of lung field
CPT/HCPCS: 71260; Q9967

== ENCOUNTER → 2022-05-20 | Outpatient (CLI) | payer MEDICARE ==
[~2022-05-20] MED LIST changes: -ISOVUE-370 76% 100ML VIAL As Ordered ONE
[2022-05-20 10:54] LABS: INR 2.16; PROTHROMBIN TIME 24.5 SECONDS (12.5-14.5)
== END ==
LOC: M LAB 10:04
PROVIDERS: ATTEND Physician Assistant
DX: I48.21 Permanent atrial fibrillation (principal); Z79.01 Long term (current) use of anticoagulants

== ENCOUNTER 2022-06-11 08:43 | Emergency (ER) | payer MEDICARE ==
[~2022-06-11] VITALS: Ht 165.1 cm; Wt 85.1 kg
[~2022-06-11 08:43] MED LIST changes: +AMIO200T49; +BISO10TA14; +IRON65TA2 PO; -LOSA100T45 PO; +LOSA100T46 PO
[2022-06-11 08:55] VITALS: BP 154/99
[2022-06-11] MEDS ORDERED: LIDOCAINE 5% (LIDODERM) PATCH TD ONE (09:05)
[2022-06-11] MEDS ORDERED: ACETAMINOPHEN 500 MG TAB PO ONE (09:05)
[2022-06-11] MEDS ORDERED: MORPHINE 2 MG/ML 1ML VIAL IV PRN (09:10)
[2022-06-11] MEDS ORDERED: ONDANSETRON 4MG 2ML VIAL IV ONE (09:10)
[2022-06-11] MEDS ORDERED: LIDO5DIS41 TD (10:59)
== END 2022-06-11 11:22 | disposition home or self-care (01) ==
LOC: M ED 08:43 → EDBD 08:43 → M ED 11:22
DX: M54.50 Low back pain, unspecified (principal); I10 Essential (primary) hypertension; E78.5 Hyperlipidemia, unspecified; J44.9 Chronic obstructive pulmonary disease, unspecified; J45.909 Unspecified asthma, uncomplicated; K21.9 Gastro-esophageal reflux disease without esophagitis; Z85.07 Personal history of malignant neoplasm of pancreas; Z87.891 Personal history of nicotine dependence; Z88.0 Allergy status to penicillin; Z79.01 Long term (current) use of anticoagulants; Z79.899 Other long term (current) drug therapy
CPT/HCPCS: 72131; 96365; 96366; 96375; 99284; J2405

== ENCOUNTER → 2022-06-25 | Outpatient (CLI) | payer MEDICARE ==
[~2022-06-25] MED LIST changes: +LIDO5DIS41 TD; +ONDA-84 PO; +PERC5TAB12 PO; +PROC10TA5 PO; +TRAM50TA2
[2022-06-25 11:21] LABS: INR 3.32; PROTHROMBIN TIME 34.2 SECONDS (12.5-14.5)
== END ==
LOC: M LAB 09:57
PROVIDERS: ATTEND Physician Assistant
DX: I48.21 Permanent atrial fibrillation (principal)

== ENCOUNTER → 2022-07-08 | Outpatient (CLI) | payer MEDICARE ==
[~2022-07-08] MED LIST changes: +ATIV1TAB7 PO; +BISO10TA14 PO; +HOME MED LIST COMPLETE! XX SCH; +LIDOCAINE 1% MDV 20ML VIAL As Ordered ONE; +OMEP40CA5 PO
[2022-07-08 08:45] LABS: PROTHROMBIN TIME 13.4 SECONDS (12.5-14.5)
[2022-07-08 11:30] VITALS: BP 159/91
== END ==
LOC: M IRPRO 07:58
PROVIDERS: ATTEND Internal Medicine Medical Oncology
DX: C78.02 Secondary malignant neoplasm of left lung (principal); C25.9 Malignant neoplasm of pancreas, unspecified

== ENCOUNTER → 2022-07-09 | Outpatient (CLI) | payer MEDICARE ==
[~2022-07-09] MED LIST changes: -HOME MED LIST COMPLETE! XX SCH; -LIDOCAINE 1% MDV 20ML VIAL As Ordered ONE
== END ==
LOC: M PAL 14:22
PROVIDERS: ATTEND Nurse Practitioner Adult Health
DX: Z53.21 Procedure and treatment not carried out due to patient leaving prior to being seen by health care provider (principal)

== ENCOUNTER → 2022-07-13 | Outpatient (CLI) | payer MEDICARE ==
[2022-07-13 10:11] LABS: INR 1.44; PROTHROMBIN TIME 17.8 SECONDS (12.5-14.5)
== END ==
LOC: M LAB 09:30
PROVIDERS: ATTEND Physician Assistant
DX: I48.21 Permanent atrial fibrillation (principal); Z79.01 Long term (current) use of anticoagulants

== ENCOUNTER → 2022-08-04 | Outpatient (REF) | payer MEDICARE | LOC: M LAB REF 20:57 | PROVIDERS: ATTEND Physician Assistant | DX: R50.9 Fever, unspecified (principal) ==

== ENCOUNTER → 2022-08-18 | Outpatient (CLI) | payer MEDICARE ==
[~2022-08-18] MED LIST changes: +ISOVUE-300 61% 100ML VIAL ONE
== END ==
LOC: M PLAIMG 09:35
PROVIDERS: ATTEND Internal Medicine Hematology & Oncology
DX: C25.9 Malignant neoplasm of pancreas, unspecified (principal)
CPT/HCPCS: 71260; Q9967

== ENCOUNTER → 2022-09-15 | Outpatient (CLI) | payer MEDICARE ==
[~2022-09-15] MED LIST changes: -ISOVUE-300 61% 100ML VIAL ONE
[2022-09-15 11:02] LABS: INR 1.99; PROTHROMBIN TIME 22.9 SECONDS (12.5-14.5)
== END ==
LOC: M LAB 10:17
PROVIDERS: ATTEND Physician Assistant
DX: I48.21 Permanent atrial fibrillation (principal); Z79.01 Long term (current) use of anticoagulants

== ENCOUNTER → 2022-09-29 | Outpatient (CLI) | payer MEDICARE ==
[2022-09-29 11:25] LABS: INR 3.86; PROTHROMBIN TIME 37.1 SECONDS (12.5-14.5)
== END ==
LOC: M LAB 10:34
PROVIDERS: ATTEND Physician Assistant
DX: I48.21 Permanent atrial fibrillation (principal); Z79.01 Long term (current) use of anticoagulants

== ENCOUNTER → 2022-10-06 | Outpatient (CLI) | payer MEDICARE ==
[2022-10-06 09:29] LABS: INR 4.22; PROTHROMBIN TIME 39.7 SECONDS (12.5-14.5)
== END ==
LOC: M LAB 08:50
PROVIDERS: ATTEND Internal Medicine Cardiovascular Disease
DX: I48.21 Permanent atrial fibrillation (principal); Z79.01 Long term (current) use of anticoagulants

== ENCOUNTER → 2022-10-13 | Outpatient (CLI) | payer MEDICARE ==
[2022-10-13 09:57] LABS: INR 1.47; PROTHROMBIN TIME 17.4 SECONDS (12.5-14.5)
== END ==
LOC: M LAB 08:44
PROVIDERS: ATTEND Physician Assistant
DX: I48.21 Permanent atrial fibrillation (principal)

== ENCOUNTER → 2022-10-16 | Outpatient (CLI) | payer MEDICARE ==
[~2022-10-16] MED LIST changes: +GASTROGRAFIN SOLUTION 30ML As Ordered ONE; +ISOVUE-370 76% 100ML VIAL As Ordered ONE
== END ==
LOC: M RAD 14:37
PROVIDERS: ATTEND Internal Medicine Hematology & Oncology
DX: C25.9 Malignant neoplasm of pancreas, unspecified (principal)
CPT/HCPCS: 71260; 74177; Q9963; Q9967

== ENCOUNTER → 2022-10-27 | Outpatient (CLI) | payer MEDICARE ==
[~2022-10-27] MED LIST changes: -GASTROGRAFIN SOLUTION 30ML As Ordered ONE; -ISOVUE-370 76% 100ML VIAL As Ordered ONE
[2022-10-27 13:33] LABS: INR 3.29; PROTHROMBIN TIME 32.7 SECONDS (12.5-14.5)
== END ==
LOC: M LAB 12:31
PROVIDERS: ATTEND Physician Assistant
DX: I48.21 Permanent atrial fibrillation (principal); Z79.01 Long term (current) use of anticoagulants

== ENCOUNTER → 2022-11-11 | Outpatient (CLI) | payer MEDICARE ==
[2022-11-11 14:50] LABS: HEMATOCRIT 40.6 % (42.0-52.0); HEMOGLOBIN 12.8 g/dl (13.5-17.5); MEAN CORPUSCULAR HEMOGLOBIN 31.8 pg (27.0-33.0); MEAN CORPUSCULAR HGB CONC 31.5 g/dl (32.0-36.5); PLATELET COUNT, AUTOMATED 200 10^3/uL (150-450); RED BLOOD COUNT 4.02 10^6/uL (4.30-6.10); WHITE BLOOD COUNT 7.5 10^3/uL (4.0-10.0)
[2022-11-11 15:19] LABS: ALKALINE PHOSPHATASE 110 U/L (46-116); ALT/SGPT 68 U/L (7.0-40); AST/SGOT 45 U/L (<34); BILIRUBIN,TOTAL 1.3 MG/DL (0.3-1.2); BLOOD UREA NITROGEN 12 MG/DL (9-23); CALCIUM LEVEL 8.6 MG/DL (8.3-10.6); CARBON DIOXIDE LEVEL 31 MMOL/L (20-31); CHLORIDE LEVEL 107 MMOL/L (98-107); CREATININE FOR GFR 1.11 MG/DL (0.70-1.30); GLOMERULAR FILTRATION RATE > 60.0 (>42); GLUCOSE, FASTING 103 MG/DL (74-106); POTASSIUM SERUM 4.6 MMOL/L (3.5-5.1); SODIUM LEVEL 143 MMOL/L (136-145); TOTAL PROTEIN 6.2 G/DL (5.7-8.2)
[2022-11-12 08:27] LABS: INR 2.17; PROTHROMBIN TIME 23.6 SECONDS (12.5-14.5)
== END ==
LOC: M LAB 13:49
PROVIDERS: ATTEND Internal Medicine
DX: I50.9 Heart failure, unspecified (principal); I48.91 Unspecified atrial fibrillation; Z79.01 Long term (current) use of anticoagulants

== ENCOUNTER → 2022-11-11 | Outpatient (CLI) | payer MEDICARE ==
[2022-11-11 15:05] LABS: INR 2.17; PROTHROMBIN TIME 23.6 SECONDS (12.5-14.5)
== END ==
LOC: M LAB 13:51
PROVIDERS: ATTEND Physician Assistant
DX: I48.21 Permanent atrial fibrillation (principal); Z79.01 Long term (current) use of anticoagulants

== ENCOUNTER → 2022-11-17 | Outpatient (CLI) | payer MEDICARE ==
[2022-11-17 12:33] LABS: CA19-9 TUMOR MARKER,CARBOHYDRA 240.8 U/ML (<35.0)
== END ==
LOC: M ONCR 10:55
PROVIDERS: ATTEND General Practice
DX: C25.9 Malignant neoplasm of pancreas, unspecified (principal); C78.00 Secondary malignant neoplasm of unspecified lung; Z71.2 Person consulting for explanation of examination or test findings; Z79.01 Long term (current) use of anticoagulants; Z79.899 Other long term (current) drug therapy; Z80.42 Family history of malignant neoplasm of prostate; Z80.6 Family history of leukemia; Z87.891 Personal history of nicotine dependence; Z88.0 Allergy status to penicillin; Z88.1 Allergy status to other antibiotic agents; Z92.21 Personal history of antineoplastic chemotherapy
CPT/HCPCS: 36415; 82378; 86301; G0463

== ENCOUNTER 2022-12-02 10:16 | Outpatient (RCR) | payer MEDICARE | END 2022-12-08 | LOC: M ONCR 10:16 | PROVIDERS: ATTEND General Practice | DX: Z51.0 Encounter for antineoplastic radiation therapy (principal); C78.00 Secondary malignant neoplasm of unspecified lung ==

== ENCOUNTER → 2022-12-09 | Outpatient (CLI) | payer MEDICARE ==
[2022-12-09 13:51] LABS: INR 1.92; PROTHROMBIN TIME 21.3 SECONDS (12.5-14.5)
== END ==
LOC: M LAB 12:58
PROVIDERS: ATTEND Physician Assistant
DX: I48.21 Permanent atrial fibrillation (principal); Z79.01 Long term (current) use of anticoagulants

== ENCOUNTER 2022-12-16 09:20 | Outpatient (RCR) | payer MEDICARE ==
[~2022-12-16 09:20] MED LIST changes: +FAMO20TA PO
[2022-12-16] MEDS ORDERED: PRED50TA PO (09:44)
== END 2023-01-07 ==
LOC: M ONCR 09:20
PROVIDERS: ATTEND General Practice
DX: Z51.0 Encounter for antineoplastic radiation therapy (principal); C78.00 Secondary malignant neoplasm of unspecified lung